=== PATIENT | male | born 1945 | race Caucasian/White ===

== ENCOUNTER 2021-06-18 11:09 | Emergency (ER) | payer MEDICARE, OTHER, SELFPAY ==
--- NOTE | 2021-06-18 | USR_ITS ---
PROCEDURE INFORMATION: Exam: US Duplex Right Lower Extremity Veins, Limited Exam date and time: 06/18/2021 12:00 AM Age: 76 years old Clinical indication: Pain; Leg, upper; Right; Additional info: Rule out dvt, h/o dvts on ac. History of vascular surgery. Explosive Operator spoke with the ER doctor and and arterial exam will be performed subsequently. TECHNIQUE: Imaging protocol: Real-time Duplex ultrasound of the Right Lower Extremity with 2-D mahoney scale, color Doppler flow and spectral waveform analysis with image documentation. Limited exam was focused on the right lower extremity veins. COMPARISON: No relevant prior studies available. FINDINGS: Right deep veins: Unremarkable. The common femoral, femoral, proximal profunda femoral and popliteal veins are patent without thrombus. Normal Doppler waveforms. Normal compressibility and/or augmentation response. Right superficial veins: Unremarkable. Saphenofemoral junction is patent without thrombus. Soft tissues: Unremarkable. Explosive Operator noted diminished flow in the right posterior tibialis artery and dorsalis pedis artery. A subsequent arterial exam is being performed. Please see that report. US/[place] [id number] IMPRESSION: No evidence of deep vein thrombosis.
[2021-06-18 11:26] VITALS: BP 203/85; PULSE 60; RESP 15; O2SAT 95; BMI 22.5
[2021-06-18 11:35] VITALS: BP 196/96; PULSE 55; RESP 24; O2SAT 99
--- NOTE | 2021-06-18 11:41 | XRR_ITS ---
PROCEDURE INFORMATION: Exam: XR Right Knee Exam date and time: 06/18/2021 11:41 AM Age: 76 years old Clinical indication: Pain; Knee; Right; Additional info: Ap and lateral please TECHNIQUE: Imaging protocol: XR Right knee. Views: 1 or 2 views. COMPARISON: [place] [id number] 06/18/2021 1:03 PM FINDINGS: Bones/joints: Normal. Soft tissues: Normal. XR/XR knee RT 1-2V 31893 IMPRESSION: No acute findings.
--- NOTE | 2021-06-18 11:41 | XRR_ITS ---
PROCEDURE INFORMATION: Exam: XR Right Femur Exam date and time: 06/18/2021 11:41 AM Age: 76 years old Clinical indication: Pain; Thigh; Right; Additional info: Rule out FX TECHNIQUE: Imaging protocol: XR Right femur. Views: 2 views. COMPARISON: [place] [id number] 06/18/2021 1:03 PM FINDINGS: Bones/joints: Unremarkable. No acute fracture. Soft tissues: Unremarkable. XR/XR femur RT min 2V* [id number] IMPRESSION: No acute findings.
--- NOTE | 2021-06-18 11:41 | XRR_ITS ---
PROCEDURE INFORMATION: Exam: XR Pelvis Exam date and time: 06/18/2021 11:41 AM Age: 76 years old Clinical indication: Pelvic pain; Additional info: Rule out FX TECHNIQUE: Imaging protocol: XR pelvis. Views: 1 or 2 view. COMPARISON: CR Lumbar Spine Flex/Extens 11577 11/13/2017 4:28 PM FINDINGS: Tubes, catheters and devices: Surgical clips overlie the right femoral head and pelvis. Bones/joints: Unremarkable. No acute fracture. Soft tissues: Unremarkable. Vasculature: There are vascular grafts. XR/XR pelvis 1-2V* 10048 IMPRESSION: No visualized acute fracture.
[2021-06-18 12:00] VITALS: BP 176/85; PULSE 51; RESP 18; O2SAT 95
--- NOTE | 2021-06-18 12:13 | W.ED.GENADLT ---
HPI - General Adult General: Chief complaint: Extremity Problem,Nontraumatic Stated complaint: TROUBLE WALKING/R. HIP PAIN Time Seen by Provider: 06/18/21 11:14 History of Present Illness: HPI narrative: Patient is a 76-year-old male with history of PAD currently on rivaroxaban presenting to the emergency room with complaints of right sided hip pain with radiation to the right inner thigh x1 month. Denies any recent traumas however has noticed worsening pain at that time. Patient went to see his primary care provider was given pain reliever without any significant improvement in symptoms. Patient presents the emergency room for evaluation at this time. Patient denies any fevers/chills, leg swelling, leg erythema, or leg pain currently. Has not had any recent DVT PE in the last few years. Compliant with rivaroxban. Onset: 1 month Duration:1 month Location:home Severity:mild/moderate Review of Systems Narrative: Constitutional: No fever, no chills. HEENT: No vision changes CV: No chest pain, no palpitations PULM: no cough, no dyspnea. GI: No abdominal pain, no N/V/D. : No dysuria MSKEL: +R pelvis pain radiating to the R leg SKIN: No new rashes, no lesions. NEURO: No headache, no focal weakness. HEME: No visible bruises PSYCH: Normal mood Physical Exam Narrative: EXAM NARRATIVE: Head: Atraumatic Eyes: PERRL, conjunctiva without injection ENT: Mucous membrane moist NECK: Supple, ROM intact LUNGS: LCTAB, no crackles/rhonchi CV: RRR ABDOMEN: Soft, nontender in all quadrants EXTREMITY: Normal ROM right hip, ROM of the right knee intact, no visible swelling, prior well-healed scar noted on the inner aspect of the right leg, 1+ DP/PT pulse R foot, cap refill < 3 seconds R foot, 2+dp/pt pulses L SKIN: No rash or erythema NEURO: Awake and alert, no focal motor deficits PSYCH: Normal mood and affect Course Vital Signs: Vital signs: Vital Signs Pulse Rate 51 L 06/18/21 14:44 Respiratory Rate 18 06/18/21 14:44 Blood Pressure 165/71 06/18/21 14:44 Pulse Oximetry 100 06/18/21 14:44 MDM - General Adult MDM Narrative: Medical decision making narrative: Is a 76-year-old male who presents the emergency room for evaluation of right leg pain. Patient has had symptoms for 30 days. On exam, patient has 1+ pulses in the right lower extremity was signs of prior graft for bypass. He is currently on rivaroxaban for peripheral artery disease. Patient has a outpatient vascular surgeon at [facility] in [facility] for plans to follow-up next week for evaluation of PAD. X-ray today did not show any signs of acute fracture. There is no DVTs on ultrasound. I have discussed the findings of the ultrasound with the patient as well as included the report. Patient reassures me that he will follow-up with his his specialist in 1 week for further evaluation. At this present time, I suspect that the peripheral artery disease is likely chronic. I do not suspect acute limb ischemia given ongoing flow. I have given patient strict return precautions for any signs of embolic events. Patient agrees with plan to follow-up with his specialist on next . Rx Tylenol, Norflex, lidocaine patch. Dispositoin: Discharge. Patient is given strict return encouraged for any signs of embolic phenomenon, worsening pain, any new or concerning complaints. Imaging Data^: Other Imaging: Radiologist's impression: [facility] [id number] [facility].[place], [place] [address]Unqeriikwh ReportSigned Patient: Eder Murphy #: [id number]: 1945Acct#:[id number]/Sex: 76 / MADM Date: 06/18/21Loc: [facility]/Bed:Attending Dr: Ordering Provider/Ordering MD: Patricia Pabon MD Date of Service: 06/18/21 Procedure(s): [place] [id number] Accession Number(s): [id number] Report Number: [id number] PROCEDURE INFORMATION: Exam: US Duplex Right Lower Extremity Arteries Or Arterial Bypass Grafts Exam date and time: 06/18/2021 12:42 PM Age: 76 years old Clinical indication: Pain; Leg, upper; Right; Additional info: Evaluate for decreased arterial flow. Patient has a history of 2 bypass grafts. TECHNIQUE: Imaging protocol: Right Real-time duplex scan of the arteries or arterial bypass grafts of the right lower extremity with 2-D mahoney scale, color Doppler flow and spectral waveform analysis. Images documented and saved. COMPARISON: [place] [id number] 06/18/2021 12:14 PM FINDINGS: Right external iliac artery: The peak systolic velocity is 160 cm/s corresponding to between 30 and 49% stenosis. Right common femoral artery: Peak systolic velocity is 32 centimeters/second. Biphasic waveforms. Right superficial femoral artery: No flow visualized. Right popliteal artery: Peak systolic velocities 13.8 cm/s. Biphasic waveforms. Right calf/foot arteries: Peak systolic velocity of the posterior tibialis artery is 11 cm/s. Peak systolic velocity of the dorsalis pedis artery is 7 cm/s. Very diminished flow and monophasic waveforms are seen in these vessels. Soft tissues: No hematoma or collection. Other findings: Technically difficult study. There are internal echoes and no vascularity seen within the bypass grafts. US/[place] [id number] IMPRESSION: 1. There is no vascularity in the visualized bypass grafts. 2. No flow is visualized in the superficial femoral artery. 3. There is severely diminished flow in the visualized right calf/foot arteries as described above with monophasic waveforms. Dictated By:Stephenie Fuller MDSigned By:Stephenie Fuller MDSigned Date/Time:06/18/[address] [place] [id number] ReportSigned Patient: Eder Murphy #: [id number]: 7Acct#:[id number]/Sex: 76 / MADM Date: 06/18/21Loc: [facility]/Bed:Attending Dr: Ordering Provider/Ordering MD: Patricia Pabon MD Date of Service: 06/18/21 Procedure(s): [place] [id number] Accession Number(s): [id number] Report Number: [id number] PROCEDURE INFORMATION: Exam: US Duplex Right Lower Extremity Veins, Limited Exam date and time: 06/18/2021 12:00 AM Age: 76 years old Clinical indication: Pain; Leg, upper; Right; Additional info: Rule out dvt, h/o dvts on ac. History of vascular surgery. Computer System Technician spoke with the ER doctor and and arterial exam will be performed subsequently. TECHNIQUE: Imaging protocol: Real-time Duplex ultrasound of the Right Lower Extremity with 2-D mahoney scale, color Doppler flow and spectral waveform analysis with image documentation. Limited exam was focused on the right lower extremity veins. COMPARISON: No relevant prior studies available. FINDINGS: Right deep veins: Unremarkable. The common femoral, femoral, proximal profunda femoral and popliteal veins are patent without thrombus. Normal Doppler waveforms. Normal compressibility and/or augmentation response. Right superficial veins: Unremarkable. Saphenofemoral junction is patent without thrombus. Soft tissues: Unremarkable. Computer System Technician noted diminished flow in the right posterior tibialis artery and dorsalis pedis artery. A subsequent arterial exam is being performed. Please see that report. US/[place] [id number] IMPRESSION: No evidence of deep vein thrombosis. Discharge Plan Discharge Patient Disposition: Home Clinical Impression: Leg pain, Peripheral arterial disease Condition: Stable Prescriptions: New acetaminophen 500 mg tablet 500 mg PO Q6H PRN (Reason: pain) Qty: 24 RF: 0 lidocaine 5 % adhesive patch,medicated 1 patch topical DAILY PRN (Reason: Pain, Mild) Qty: 20 RF: 0 orphenadrine citrate 100 mg tablet extended release 100 mg PO BID PRN (Reason: Pain, Mild) Qty: 20 RF: 0 Discharge Orders: Discharge ED (Routine); Ordered 06/18/21 Ordered By: Patricia Pabon Referrals: Arias Andrews [Primary Care Provider] - Discharge Diet: Usual diet Discharge Activity: Resume usual activity Patient Instructions: Peripheral Artery Disease (ED), Opioid Safety Activity Restrictions/Additional Instructions: Come back to the emergency room if you notice sudden worsening pain, any numbness, inability to move the leg, or any new concerning complaints. Coding Level of Care Code ED District Manager for Heaven Bishop
--- NOTE | 2021-06-18 12:42 | USR_ITS ---
PROCEDURE INFORMATION: Exam: US Duplex Right Lower Extremity Arteries Or Arterial Bypass Grafts Exam date and time: 06/18/2021 12:42 PM Age: 76 years old Clinical indication: Pain; Leg, upper; Right; Additional info: Evaluate for decreased arterial flow. Patient has a history of 2 bypass grafts. TECHNIQUE: Imaging protocol: Right Real-time duplex scan of the arteries or arterial bypass grafts of the right lower extremity with 2-D mahoney scale, color Doppler flow and spectral waveform analysis. Images documented and saved. COMPARISON: [place] [id number] 06/18/2021 12:14 PM FINDINGS: Right external iliac artery: The peak systolic velocity is 160 cm/s corresponding to between 30 and 49% stenosis. Right common femoral artery: Peak systolic velocity is 32 centimeters/second. Biphasic waveforms. Right superficial femoral artery: No flow visualized. Right popliteal artery: Peak systolic velocities 13.8 cm/s. Biphasic waveforms. Right calf/foot arteries: Peak systolic velocity of the posterior tibialis artery is 11 cm/s. Peak systolic velocity of the dorsalis pedis artery is 7 cm/s. Very diminished flow and monophasic waveforms are seen in these vessels. Soft tissues: No hematoma or collection. Other findings: Technically difficult study. There are internal echoes and no vascularity seen within the bypass grafts. US/[place] [id number] IMPRESSION: 1. There is no vascularity in the visualized bypass grafts. 2. No flow is visualized in the superficial femoral artery. 3. There is severely diminished flow in the visualized right calf/foot arteries as described above with monophasic waveforms.
[2021-06-18 13:40] VITALS: BP 165/71; PULSE 51; RESP 18; O2SAT 100
[2021-06-18 14:44] VITALS: BP 165/71; PULSE 51; RESP 18; O2SAT 100
== END 2021-06-18 14:44 | disposition home or self-care (01) ==
PROVIDERS: Emergency Provider Emergency Medicine; PCP Family Medicine
DX: I73.9 Peripheral vascular disease, unspecified (principal); M79.604 Pain in right leg
CPT/HCPCS: 72170; 73552; 73560; 93926; 93971; 99283

== ENCOUNTER 2022-04-10 18:57 | Emergency (ER) | payer OTHER, MEDICARE, SELFPAY ==
[2022-04-10 19:04] VITALS: BP 179/99; PULSE 55; RESP 16; TEMP 36; O2SAT 99
[2022-04-10 19:40] VITALS: BP 207/85; RESP 16; O2SAT 99
[2022-04-10 20:10] VITALS: BP 188/80; PULSE 53; RESP 15; O2SAT 98
[2022-04-10 20:16] LABS: Basophils # 0.1 10^3/uL (0.0-0.1); Eosinophils # 0.4 10^3/uL (0.0-0.8); Eosinophils % 5.3 %; Hematocrit 43.3 % (42.0-52.0); Hemoglobin 13.8 g/dL (11.7-16.6); Lymphocytes # 2.1 10^3/uL (0.8-4.8); Lymphocytes % 29.1 %; Mean Corpuscular HGB Conc 31.9 g/dL (30.0-36.0); Mean Corpuscular Hemoglobin 28.9 pg (28.0-34.0); Mean Corpuscular Volume 90.8 fl (80-94); Mean Platelet Volume 8.9 fL (7.4-10.4); Monocytes # 0.6 10^3/uL (0.2-0.9); Monocytes % 7.8 %; Neutrophils # 4.03 10^3/uL (1.8-7.7); Neutrophils % 56.4 %; Nucleated Red Blood Cells % 0 %; Platelet Count 395 10^3/cmm (130-400); Red Blood Count 4.77 10^6/uL (4.1-5.3); Red Cell Distribution Width 13.8 % (12.1-15.1); White Blood Count 7.2 10^3/uL (4.0-10.0)
[2022-04-10 20:26] LABS: Add Urine Microscopic? YES; Bilirubin Urine Neg (Negative); Blood Urine 3+ (Negative); Glucose Urine UA Norm (Normal); Ketones Urine Negative (Negative); Leukocyte Esterase Urine 2+ (Negative); Nitrate Urine Negative (Negative); Protein Urine 1+ (Negative); Urine Appearance Turbid (CLEAR); Urine Color Brown (Yellow); Urobilinogen Urine 1 mg/dL (Negative); pH Urine 6 (5-7)
--- NOTE | 2022-04-10 20:33 | ED_ITS ---
HPI - Male Genitourinary General: Chief complaint: Urogenital-Male Stated complaint: unable to urinanate Time Seen by Provider: 04/10/22 19:35 Source: patient Mode of arrival: ambulatory Limitations: no limitations History of Present Illness: 77-year-old male who states he has been having recurrent urinary tract infections over the last 3 months with abdominal pain. He states she was seen at [facility] ER on the 25th had a CT scan that showed no [place] vesicle fistula he states has been on Keflex with minimal improvement. Denies any fevers has had no vomiting or diarrhea denies any worsening improving fa ctors. Associated symptoms: Reports dysuria Review of Systems Const: Denies: fever(s), chills, body aches or change in appetite Eyes: Denies: blurry vision or eye discomfort ENMT: Denies: throat pain or dental pain Card: Denies: chest pain Resp: Denies: dyspnea GI: Reports: abdominal pain : Reports: difficulty urinating and dysuria Musc: Denies: neck pain or back pain Skin/Breast: Denies: rash Neuro: Denies: headache(s) Psych: Denies: depression Juan F/Lymph: Denies: easy bruising All/Imm: Denies: urticaria PFSH ED PFSH: Medical History No pertinent past medical history Social History Substance/Drug Use: never Physical Exam Const: COMMON NORMALS: no acute distress, patient oriented x3 and healthy appearing HENMT: COMMON NORMALS: normocephalic and atraumatic HEAD & SCALP: normocephalic and atraumatic Eye: COMMON NORMALS: Equal, round and reactive pupils present and EOMs intact bilaterally PUPIL: Yes Equal, round and reactive pupils present Neck/C-Spine: COMMON NORMALS: full ROM and supple Chest: COMMONS NORMALS: normal inspection of the chest and normal palpation of entire chest wall Resp: COMMON NORMALS: normal respiratory effort, No retractions, No use of accessory muscles and clear to auscultation bilaterally AUSCULTATION: clear to auscultation bilaterally Cardio: COMMON NORMALS: regular rate, regular rhythm and No murmurs present (Cardio) RATE: regular rate RHYTHM: regular rhythm GI: COMMON NORMALS: Normal to inspection, nondistended, normoactive bowel sounds present, Soft to palpation, non-tender and no masses PALPATION: Yes Soft to palpation Extremity: COMMON NORMALS: normal to inspection and full ROM Neuro: COMMON NORMALS: patient oriented x3, moves all extremities and no focal motor deficits Psych: COMMON NORMALS: mental status grossly normal, Normal thought process present and cooperative THOUGHT PROCESS: Normal thought process present Skin: COMMON NORMALS: no rashes or lesions noted and no wounds GENERAL SKIN EXAM: no rashes or lesions noted Course Vital Signs: Vital signs: Vital Signs Temperature 96.8 F L 04/10/22 19:04 Pulse Rate 54 L 04/10/22 20:40 Respiratory Rate 16 04/10/22 20:40 Blood Pressure 151/80 04/10/22 20:40 Pulse Oximetry 97 04/10/22 20:40 MDM - Male Medical Decision Making Patient presents here with abdominal pain along with some urinary tension he also has a colovesical fistula I did speak to hallway we will follow-up with him this week stable for discharge at this time return if worsening. Lab Data : 04/10/22 20:10 04/10/22 20:10 Laboratory Results WBC 7.2 10^3/uL (4.0-10.0) 04/10/22 20:10 RBC 4.77 10^6/uL (4.1-5.3) 04/10/22 20:10 Hgb 13.8 g/dL (11.7-16.6) 04/10/22 20:10 Hct 43.3 % (42.0-52.0) 04/10/22 20:10 MCV 90.8 fl (80-94) 04/10/22 20:10 MCH 28.9 pg (28.0-34.0) 04/10/22 20:10 MCHC 31.9 g/dL (30.0-36.0) 04/10/22 20:10 RDW 13.8 % (12.1-15.1) 04/10/22 20:10 Plt Count 395 10^3/cmm (130-400) 04/10/22 20:10 MPV 8.9 fL (7.4-10.4) 04/10/22 20:10 Neut % (Auto) 56.4 % 04/10/22 20:10 Lymph % (Auto) 29.1 % 04/10/22 20:10 [place] % (Auto) 7.8 % 04/10/22 20:10 Eos % (Auto) 5.3 % 04/10/22 20:10 Baso % (Auto) 1.0 % 04/10/22 20:10 Neut # (Auto) 4.03 10^3/uL (1.8-7.7) 04/10/22 20:10 Lymph # (Auto) 2.1 10^3/uL (0.8-4.8) 04/10/22 20:10 [place] # (Auto) 0.6 10^3/uL (0.2-0.9) 04/10/22 20:10 Eos # (Auto) 0.4 10^3/uL (0.0-0.8) 04/10/22 20:10 Baso # (Auto) 0.1 10^3/uL (0.0-0.1) 04/10/22 20:10 Nucleated RBC % (auto) 0 % 04/10/22 20:10 Nucleated RBCs # 0.0 /100WBC 04/10/22 20:10 Sodium 139 mmol/L (136-145) 04/10/22 20:10 Potassium 3.9 mmol/L (3.5-5.1) 04/10/22 20:10 Chloride 103 mmol/L (98-107) 04/10/22 20:10 Carbon Dioxide 26 mmol/L (22-29) 04/10/22 20:10 Anion Gap 13.9 (5-19) 04/10/22 20:10 BUN 26 mg/dL (8-23) H 04/10/22 20:10 Creatinine 1.5 mg/dL (0.7-1.2) H 04/10/22 20:10 GFR Calculation Not Reportable 04/10/22 20:10 Glucose 89 mg/dL (65-115) 04/10/22 20:10 Calculated Osmolality 292 mOsm/kg (285-295) 04/10/22 20:10 Calcium 9.4 mg/dL (8.5-10.5) 04/10/22 20:10 Total Bilirubin 0.2 mg/dL (0.15-1.2) 04/10/22 20:10 AST 11 U/L (0-40) 04/10/22 20:10 ALT 10 U/L (0-41) 04/10/22 20:10 Alkaline Phosphatase 170 IU/L (40-130) H 04/10/22 20:10 Total Protein 7.5 g/dL (6.6-8.7) 04/10/22 20:10 Albumin 4.3 g/dL (3.5-5.2) 04/10/22 20:10 Globulin 3.2 g/dL (1.3-4.6) 04/10/22 20:10 Urine Color Brown (Yellow) 04/10/22 20:10 Urine Appearance Turbid (CLEAR) 04/10/22 20:10 Urine pH 6 (5-7) 04/10/22 20:10 Ur Specific [place] 1.020 (1.005-1.030) 04/10/22 20:10 Urine Protein 1+ (Negative) H 04/10/22 20:10 Urine Glucose (UA) Norm (Normal) 04/10/22 20:10 Urine Ketones Negative (Negative) 04/10/22 20:10 Urine Blood 3+ (Negative) H 04/10/22 20:10 Urine Nitrate Negative (Negative) 04/10/22 20:10 Urine Bilirubin Neg (Negative) 04/10/22 20:10 Urine Urobilinogen 1 mg/dL (Negative) H 04/10/22 20:10 Ur Leukocyte Esterase 2+ (Negative) H 04/10/22 20:10 Urine RBC 15-25 /hpf (0-2) H 04/10/22 20:10 Urine WBC 15-25 /hpf (0-5) H 04/10/22 20:10 Ur Squamous Epith Cells 0-4 /hpf (0-5) H 04/10/22 20:10 Amorphous Sediment Not Reportable 04/10/22 20:10 Urine Bacteria 3+ /hpf (NONE) H 04/10/22 20:10 Urine Mucus 1+ /hpf 04/10/22 20:10 Discharge Plan Discharge Patient Disposition: Home Clinical Impression: Abdominal pain, Colovesical fistula Prescriptions: New hydrocodone-acetaminophen 5-325 mg tablet 1 tab PO Q6H PRN (Reason: pain) Qty: 14 0RF ondansetron 4 mg tablet,disintegrating 4 mg PO Q6H PRN (Reason: nausea and vomiting) Qty: 14 0RF No Action acetaminophen 500 mg tablet 500 mg PO Q6H PRN (Reason: pain) Qty: 24 0RF lidocaine 5 % adhesive patch,medicated 1 patch topical DAILY PRN (Reason: Pain, Mild) Qty: 20 0RF Rx Instructions: leave on most painful area for up to 12 hrs orphenadrine citrate 100 mg tablet extended release 100 mg PO BID PRN (Reason: Pain, Mild) Qty: 20 0RF Discharge Orders: Discharge ED (Routine); Ordered 04/10/22 Ordered By: Clayton Carpenter Referrals: Arias Andrews [Referring] - Braulio Redd MD [Physician] - 1-3 days Discharge Diet: Advance as tolerated Discharge Activity: Resume usual activity Patient Instructions: Abdominal Pain (ED), Opioid Safety Coding Level of Care Code ED It Help Desk Associate for [employer] Fwd Exam Comprehensive
[2022-04-10 20:36] LABS: Bacteria Urine 3+ /hpf; RBC Urine 15-25 /hpf (0-2); Squamous Epithelial Cell Urine 0-4 /hpf (0-5); WBC Urine 15-25 /hpf (0-5)
[2022-04-10 20:37] LABS: Add Urine Culture? Yes; Mucus Urine 1+ /hpf
[2022-04-10 20:40] VITALS: BP 151/80; PULSE 54; RESP 16; O2SAT 97
[2022-04-10 20:40] LABS: Alanine Aminotransferase 10 U/L (0-41); Albumin Level 4.3 g/dL (3.5-5.2); Alkaline Phosphatase 170 IU/L (40-130); Anion Gap 13.9 (5-19); Aspartate Amino Transferase 11 U/L (0-40); Blood Urea Nitrogen 26 mg/dL (8-23); Calcium 9.4 mg/dL (8.5-10.5); Carbon Dioxide 26 mmol/L (22-29); Chloride 103 mmol/L (98-107); Globulin 3.2 g/dL (1.3-4.6); Glucose 89 mg/dL (65-115); Osmolality Calculated 292 mOsm/kg (285-295); Potassium 3.9 mmol/L (3.5-5.1); Sodium 139 mmol/L (136-145); Total Bilirubin 0.2 mg/dL (0.15-1.2); Total Protein 7.5 g/dL (6.6-8.7)
[2022-04-10] MEDS: HYDROcodone-acetaminophen 5-325 mg Tablet 2 TAB PO (21:40)
--- NOTE | 2022-04-11 15:48 | DCPLANNER ---
Addendum entered by Sofy Grimm 04/20/22 07:32: Patient had a follow up appointment scheduled for 04.11.[address] Redd - patient did attend appointment. Addendum entered by Sofy Grimm 04/11/22 15:52: electrician manager [facility] for the [facility] process could be started. Original Note: electrician manager had message to schedule a follow up appointment for patient with urology. electrician manager sent patients information to the front office staff at urology. Patients information will be printed and reviewed. Clinic will call patient with appointment information.
== END 2022-04-10 22:04 | disposition home or self-care (01) ==
PROVIDERS: Emergency Provider Emergency Medicine
DX: N32.1 Vesicointestinal fistula (principal); R10.9 Unspecified abdominal pain
CPT/HCPCS: 51702; 80053; 81001; 85025; 87086; 99283

== ENCOUNTER → 2022-04-11 13:28 | Outpatient (BNVA) | payer OTHER, SELFPAY | PROVIDERS: Visit Provider Urology | DX: N32.1 Vesicointestinal fistula (principal); R10.9 Unspecified abdominal pain; R97.20 Elevated prostate specific antigen [PSA]; Z87.440 Personal history of urinary (tract) infections; Z87.19 Personal history of other diseases of the digestive system | CPT/HCPCS: 52000; 99204 ==

== ENCOUNTER → 2022-04-17 12:22 | Outpatient (BNVA) | payer MEDICARE, OTHER, SELFPAY | PROVIDERS: Visit Provider Surgery | DX: N32.1 Vesicointestinal fistula (principal) | CPT/HCPCS: 99204 ==

== ENCOUNTER 2022-04-20 17:00 | Inpatient (IN) | payer OTHER, MEDICARE, SELFPAY ==
[2022-04-19 13:11] VITALS: BMI 24.1
[2022-04-20] VITALS (16 sets, daily range): BP systolic 94–165; BP diastolic 59–107; PULSE 59–70; RESP 12–18; TEMP 35.9–36.4; O2SAT 93–100; BMI 24.1
--- NOTE | 2022-04-20 07:20 | ECG_ITS ---
[facility] Test Date: 2022-04-20 Pat Name: Eder Murphy Department: Room: Gender: Male Technical Architect: : [id number] Requested By: Deni Hinds Order Number: [id number] Melida MD: Francesco Chambers M.D. Measurements Intervals [place] Rate: 57 P: 6 CT: 169 QRS: -30 QRSD: 98 T: 51 QT: 438 QTc: 427 Interpretive Statements SINUS BRADYCARDIA POSSIBLE ANTERIOR MYOCARDIAL INFARCTION , OF INDETERMINATE AGE [30 ms Q WAVE IN V3/V4, OR R < 0.2 mV IN V4] Compared to ECG 02/14/2018 22:37:20 Myocardial infarct finding now present Sinus rhythm no longer present Electronically Signed On 04-20-2022 17:00:30 CDT by Francesco Chambers M.D. [email or web address]
--- NOTE | 2022-04-20 08:16 | P.ANESASSM_ITS ---
Pre-Anesthetic Assessment Height/Weight: Height 1.65 m Weight 65.771 kg Preop Diagnosis: colovesical fistula Operation Date: 04/20/22 09:00 Proposed Procedures p colovesical fistula repair 28050,N32.1(Not Applicable) - Braulio Redd MD s lap poss open sigmoid colectomy 26032,99135(Not Applicable) - Jose Ness MD Familial anesthetic complications: None Was Beta [place] taken within 24 hours: N/A Was Clonidine taken within 24 hours: N/A Last intake: > 8hrs Social No alcohol and No tobacco Exam alert, oriented x 3, clear to auscultation bilaterally and regular rate & rhythm Airway Mallampati: Class III Dentition: partials Pulmonary Chronic Obstructive Pulmonary Disease CV/HEM Hypertension and Peripheral Vascular Disease (On plavix) Hepatic None reported GI None reported Metabolic None reported Musc/skel None reported Neuropsych Cerebrovascular Accident (1 year ago, no residual deficits) Anesthetic Plan ASA status: 3 Anesthesia: General Risk of > 500 ml blood loss (7ml/kg in children): Yes, adequate IV access and fluids planned Medications/Allergies Home Medications Medication Instructions Recorded Confirmed Last Taken Type acetaminophen 500 mg tablet 500 mg PO Q6H PRN #24 tab 06/18/21 04/19/22 Unknown Rx lidocaine 5 % topical patch 1 patch TOPICAL DAILY PRN #20 ea 06/18/21 04/19/22 Unknown Rx orphenadrine citrate 100 mg 100 mg PO BID PRN #20 tab 06/18/21 04/20/22 04/18/22 Rx tablet,extended release hydrocodone 5 mg-acetaminophen 325 1 tab PO Q6H PRN #14 tab 04/10/22 04/20/22 04/19/22 Rx mg tablet ondansetron 4 mg disintegrating 4 mg PO Q6H PRN #14 tab 04/10/22 04/20/22 04/19/22 Rx tablet alendronate 70 mg tablet 70 mg PO .weekly tab 04/11/22 04/20/22 Unknown History aspirin 81 mg tablet,delayed 81 mg PO DAILY 04/11/22 04/20/22 04/17/22 History release cetirizine 10 mg tablet (All Day 10 mg PO DAILY PRN 04/11/22 04/20/22 04/19/22 History Allergy (cetirizine)) clopidogrel 75 mg tablet 75 mg PO DAILY 04/11/22 04/19/22 04/12/22 History cyanocobalamin (vitamin B-12) 1,000 mcg PO DAILY 04/11/22 04/20/22 04/19/22 History 1,000 mcg capsule ferrous sulfate 325 mg (65 mg 325 mg PO DAILY 04/11/22 04/20/22 04/19/22 History iron) tablet (FeroSul) hydrochlorothiazide 12.5 mg tablet 12.5 mg PO DAILY 04/11/22 04/20/22 04/19/22 History lamotrigine 100 mg disintegrating 100 mg PO DAILY 04/11/22 04/20/22 04/19/22 History tablet (Lamictal ODT) metoprolol tartrate 100 mg tablet 100 mg PO BID 04/11/22 04/20/22 04/19/22 History nortriptyline 10 mg capsule 20 mg PO DAILY cap 04/11/22 04/20/22 04/18/22 History sucralfate 1 gram tablet 1 g PO QID tab 04/11/22 04/20/22 04/19/22 History tamsulosin 0.4 mg capsule 0.4 mg PO DAILY 04/11/22 04/20/22 04/18/22 History topiramate 50 mg tablet 50 mg PO DAILY tab 04/11/22 04/20/22 04/19/22 History vitamins A,C,S-fkdf-mvelea 14,320 1 cap PO BID 04/11/22 04/19/22 Unknown History unit-226 mg-200 unit capsule (ICaps AREDS) erythromycin 500 mg tablet 500 mg PO ONCE #3 tab 04/17/22 04/20/22 04/19/22 Rx neomycin 500 mg tablet 1 g PO ONCE #6 tab 04/17/22 04/20/22 04/19/22 Rx Allergies Allergy/AdvReac Type Severity Reaction Status Date / Time oxycodone Allergy ADR-Halluci Verified 04/19/22 13:06 nating pregabalin Allergy ALGY-Hives Verified 04/19/22 13:05 Ffkabva-QUS-EbJ Reductase Allergy ADR-Cramping Verified 04/19/22 13:05 Inhibitor of the Muscles [facility] Anesthesia Medical History H/O traumatic brain injury History of diverticulitis Surgical History H/O hemorrhoidectomy X3 H/O shoulder surgery right H/O sinus surgery H/O vascular surgery 5 on right leg and 2 on left History of ankle surgery right -due to fracture History of cataract surgery bilateral History of colonoscopy with polypectomy 2019 History of esophagogastroduodenoscopy (EGD) 2019 S/P insertion of spinal cord stimulator Family History Mother , at age 83 No problems noted. Father , at age 78 Alzheimer's dementia Social History Smoking and tobacco status: never smoked Alcohol intake: never Marital status: Current occupational status: disabled History of recent travel: No Data Anesthesia Cardiac Studies: No Data to Display
[2022-04-20] MEDS: sodium chloride 0.9% 1,000 ML 999 ML IV (09:25)
[2022-04-20 09:34] LABS: Basophils # 0.1 10^3/uL (0.0-0.1); Basophils % 0.6 %; Eosinophils % 0.5 %; Hematocrit 40.3 % (42.0-52.0); Hemoglobin 13.3 g/dL (11.7-16.6); Lymphocytes % 25.3 %; Mean Corpuscular Hemoglobin 28.7 pg (28.0-34.0); Mean Corpuscular Volume 86.9 fl (80-94); Mean Platelet Volume 9.5 fL (7.4-10.4); Monocytes # 0.6 10^3/uL (0.2-0.9); Neutrophils # 5.21 10^3/uL (1.8-7.7); Neutrophils % 65.3 %; Nucleated Red Blood Cells % 0 %; Platelet Count 367 10^3/cmm (130-400); Red Blood Count 4.64 10^6/uL (4.1-5.3); Red Cell Distribution Width 13.6 % (12.1-15.1)
--- NOTE | 2022-04-20 09:47 | W.PM.OPSFHP ---
Same Day Surgery H&P Indication for Procedure/HPI DATE OF PROCEDURE: April 20, 2022 CHIEF COMPLAINT/INDICATIONFOR SURGICAL PROCEDURE: colon resection PREOP DIAGNOSIS: colovesical fistula PLANNED PROCEDURE: Operation Date: 04/20/22 09:00 Proposed Procedures p colovesical fistula repair 87748,N32.1(Not Applicable) - Braulio Redd MD s lap poss open sigmoid colectomy [id number](Not Applicable) - Jose Ness MD Medications/Allergies* Home Medications Medication Instructions Recorded Confirmed Type alendronate 70 mg tablet 70 mg PO .weekly tab 04/11/22 04/20/22 History aspirin 81 mg tablet,delayed 81 mg PO DAILY 04/11/22 04/20/22 History release cetirizine 10 mg tablet (All Day 10 mg PO DAILY PRN 04/11/22 04/20/22 History Allergy (cetirizine)) clopidogrel 75 mg tablet 75 mg PO DAILY 04/11/22 04/19/22 History cyanocobalamin (vitamin B-12) 1,000 mcg PO DAILY 04/11/22 04/20/22 History 1,000 mcg capsule ferrous sulfate 325 mg (65 mg 325 mg PO DAILY 04/11/22 04/20/22 History iron) tablet (FeroSul) hydrochlorothiazide 12.5 mg tablet 12.5 mg PO DAILY 04/11/22 04/20/22 History lamotrigine 100 mg disintegrating 100 mg PO DAILY 04/11/22 04/20/22 History tablet (Lamictal ODT) metoprolol tartrate 100 mg tablet 100 mg PO BID 04/11/22 04/20/22 History nortriptyline 10 mg capsule 20 mg PO DAILY cap 04/11/22 04/20/22 History sucralfate 1 gram tablet 1 g PO QID tab 04/11/22 04/20/22 History tamsulosin 0.4 mg capsule 0.4 mg PO DAILY 04/11/22 04/20/22 History topiramate 50 mg tablet 50 mg PO DAILY tab 04/11/22 04/20/22 History vitamins A,C,E-olba-ejvzqw 14,320 1 cap PO BID 04/11/22 04/19/22 History unit-226 mg-200 unit capsule (ICaps AREDS) Allergies/Adverse Reactions Allergy/AdvReac Type Severity Reaction Status Date / Time oxycodone Allergy ADR-Halluci Verified 04/19/22 13:06 nating pregabalin Allergy ALGY-Hives Verified 04/19/22 13:05 Neefzmq-BAQ-YwV Reductase Allergy ADR-Cramping Verified 04/19/22 13:05 Inhibitor of the Muscles Current Medications: Generic Name Dose Route Start Last Admin Trade Name Freq PRN Reason Stop Dose Admin Sodium Chloride 1,000 mls @ 999 mls/hr 04/20/22 09:36 04/20/22 09:25 Sodium Chloride 0.9% IV 04/20/22 10:36 999 mls/hr .Q1H1M ONE Administration Pertinent History/Comorbid Conditions* Medical History (Updated 04/18/22 @ 00:01 by ) H/O traumatic brain injury History of diverticulitis Surgical History (Updated 04/17/22 @ 12:41 by Jose Ness MD) H/O hemorrhoidectomy X3 H/O shoulder surgery right H/O sinus surgery H/O vascular surgery 5 on right leg and 2 on left History of ankle surgery right -due to fracture History of cataract surgery bilateral History of colonoscopy with polypectomy 2019 History of esophagogastroduodenoscopy (EGD) 2019 S/P insertion of spinal cord stimulator Family History (Updated 04/11/22 @ 13:57 by Roslyn Cowart LPN) Father, at age 78 Mother, at age 83 Alzheimer's dementia Father Social History Smoking and tobacco status: never smoked Alcohol intake: never Marital status: Current occupational status: disabled History of recent travel: No Pertinent Exam Findings alert, oriented x 3 and regular rate & rhythm Recommendations Surgery/Procedure today Coding Level of Care Code Acute Char Filter Operator Helper for Heaven Bishop
[2022-04-20 09:56] LABS: Blood Urea Nitrogen 31 mg/dL (8-23); Carbon Dioxide 26 mmol/L (22-29); Chloride 100 mmol/L (98-107); Glucose 92 mg/dL (65-115); Osmolality Calculated 290 mOsm/kg (285-295); Sodium 137 mmol/L (136-145)
[2022-04-20 10:07] LABS: Anion Gap 15.1 (5-19); Potassium 4.1 mmol/L (3.5-5.1)
--- NOTE | 2022-04-20 10:18 | P.HPUD_ITS ---
Surgery/Procedure H&P Update DATE OF PROCEDURE: April 20, 2022 DATE H&P PERFORMED: 04/11/22 H&P UPDATE INFORMATION: I have reviewed H&P completed within last 30 days, I have examined patient prior to procedure, No changes to prior documentation and H&P is in [facility] EMR on date indicated PREOP DIAGNOSIS: colovesical fistula PLANNED PROCEDURE: Operation Date: 04/20/22 09:00 Proposed Procedures p colovesical fistula repair 23335,N32.1(Not Applicable) - Braulio Redd MD s lap poss open sigmoid colectomy [id number](Not Applicable) - Jose Ness MD
--- NOTE | 2022-04-20 10:18 | W.PM.OPSUD ---
Surgery/Procedure H&P Update DATE OF PROCEDURE: April 20, 2022 DATE H&P PERFORMED: 04/11/22 H&P UPDATE INFORMATION: I have reviewed H&P completed within last 30 days, I have examined patient prior to procedure, No changes to prior documentation and H&P is in [facility] EMR on date indicated PREOP DIAGNOSIS: colovesical fistula PLANNED PROCEDURE: Operation Date: 04/20/22 09:00 Proposed Procedures p colovesical fistula repair 03111,N32.1(Not Applicable) - Braulio Redd MD s lap poss open sigmoid colectomy [id number],45262(Not Applicable) - Jose Ness MD
--- NOTE | 2022-04-20 11:40 | P.ANES_ITS ---
Anesthesia Procedures Procedure/Date: 04/20/22 Central Venous Insert: Time Out Performed: Yes Consent: from patient and patient agrees to proceed Central Line: New Vein cannulated: right internal jugular Ultrasound used: to identify patency to vessel and to visualize needle entry to vein Post procedure: Obtain Chest X-Ray Addit ional Comments: 16 cm, 7 fr
--- NOTE | 2022-04-20 11:44 | SUR.PREOP ---
Patient was a very difficult IV stick for surgery prep. Pre op nurse stuck 3X, Dr laughlin with US 5X and successfully placed an 18g in right bicep. Patient received 800ml NS bolus then IV infiltrated. Anesthesia tried 2X with US. Resorted to Central line to right side of neck placed by Dr. Leo. Patient tolerated all sticks very well and was in good spirits.
[2022-04-20] MEDS: piperacillin-tazobactam 3.375 GM in sodium chloride 0.9% (plus) 50 ML IV ×2 (12:20→18:20)
--- NOTE | 2022-04-20 13:18 | SUR.OPER ---
called and notified of surgical progress and pt status.
--- NOTE | 2022-04-20 13:25 | P.ANES_ITS ---
Anesthesia Procedures Procedure/Date: 04/20/22 Arterial Line: Time Out Performed: Yes Consent: requested by attending/covering physician, risks and benefits reviewed and patient agrees to proceed Size (Gauge): 20 Technique Used: guide wire technique Post- Procedure: dry sterile dressing placed Patient Tolerated Procedure: well C omplications: none Site: left and radial
--- NOTE | 2022-04-20 13:25 | ANES.PROC ---
Anesthesia Procedures Procedure/Date: 04/20/22 Arterial Line: Time Out Performed: Yes Consent: requested by attending/covering physician, risks and benefits reviewed and patient agrees to proceed Size (Gauge): 20 Technique Used: guide wire technique Post-Procedure: dry sterile dressing placed Patient Tolerated Procedure: well Complications: none Site: left and radial
--- NOTE | 2022-04-20 15:00 | PM.OP ---
Operative Report Date of procedure: April 20, 2022 Pre-op diagnosis: Colovesical fistula Post-op diagnosis: Colovesical fistula Procedure done: Partial cystectomy with bladder closure Specimens removed/disposition: Bladder dome Pathology: Bladder dome Surgeon: Ivania Java Groovy Developer: Grover Estimated blood loss (mL): 100 Urine output: Not measured Complications: None Findings: Intensely inflamed dome of bladder widely surrounding the fistula tract Dome of bladder excised for a diameter of approximately 5 to 6 cm. Healthy tissue approximated in 2 layers for closure Brief History: Eder is a very pleasant 77-year-old white male recently diagnosed with a enterovesical fistula and evidence of diverticulitis and abscess. Admitted for sigmoid resection, partial cystectomy versus simple cystorrhaphy. Procedure: After routine preoperative evaluation examination and obtaining of informed consent he was taken to the operating suite on 04/20/2022 where general anesthesia was administered without difficulty after appropriate timeout was performed, SCDs confirmed to be functioning, preoperative antibiotics administered, beta-demetrice protocol confirmed. Prepped and draped in usual sterile fashion for Dr. Ness's case in dorsolithotomy position. Please see his dictation for his portion of the procedure After the bowel had been from the inflamed bladder laparoscopically the patient was opened with a midline suprapubic incision down to the pubic bone. Wound protector was placed. The bladder was readily identified after being filled with about 200 cc sterile water. There was healthy tissue anteriorly and distally to the fibrotic dome. The bladder was entered to the healthy position in the midline. An Allis clamp was placed on the distal aspect of the incision to prevent tearing further distally. Once the bladder was open enough into the inflamed dome tissue the fistula site was readily identified. There was a intense amount of inflammation and induration surrounding this for least 2.5 to 3 cm in radius. This area was then excised with electrocautery back to healthy tissue. Hemostasis was obtained. The balloon was identified to be inflated. The orifices were well away from the area of resection. The bladder was then closed in 2 layers utilizing 3-0 Vicryl for muscularis mucosal running closure beginning at the most distal aspect of the incision carried all the way to the dome closure. A second layer of closure was then performed with 2-0 Vicryl for adventitial muscularis layer imbricating over the initial layer. Irrigation was conducted prior to the final closure of the first layer to clear any clots from the bladder. Wound was irrigated. No active bleeding. He was turned back over to Dr. Ness for completion of his portion of the procedure. Tolerated this portion well without complications. Plans: 1. Maintain Valdez catheter for 2 weeks with cystogram prior to removal. 2. We will follow as inpatient.
--- NOTE | 2022-04-20 16:53 | P.OP_ITS ---
Operative Report Date of procedure: April 20, 2022 Pre-op diagnosis: Colovesical fistula secondary to diverticulosis Post-op diagnosis: Colovesical fistula secondary to diverticulosis with associated phlegmon Diverticulosis sigmoid colon noted on colonoscopy Procedure done: 1. Colonoscopy past splenic flexure without biopsy 2. Laparoscopic sigmoid colectomy with stapled 29 mm EEA anastomosis 3. Flexible sigmoidoscopy 4. Partial cystectomy with bladder closure, refer to Dr. Redd's notes for further details Specimens removed/disposition: 1. Sigmoid colon, stapled and distal 2. Proximal and distal donuts from EEA anastomosis 3. Phlegmon 4. Bladder wall Surgeon: Jose Ness Anesthesia: General Estimated blood loss (mL): 150 IV fluids (mL): 1,600 Urine output (mL): 100 Condition: stable Disposition: PACU Procedure: The patient was taken to the operating room and intubated under general anesthesia after IV antibiotic had been administered. The patient was placed in the modified lithotomy position. A colonoscope was introduced and advanced up to the cecum, the colon prep was fair and the colonoscope was slowly withdrawn. Cecum: Normal Ascending colon: Normal Transverse colon: Normal Descending colon: Normal Sigmoid colon: Severe diverticulosis Rectum: Normal LO: Normal The Valdez catheter was placed. The rectum was irrigated with diluted Betadine using red rubber catheter. The abdomen and the perineum was prepped and draped in a sterile manner. Using a 15 blade, a midline supraumbilical incision was made and using open Perea technique the peritoneal cavity was entered, 12 mm port was placed and 15 mm of pneumoperitoneum was created. A 10 mm 30? scope was then introduced. 12 mm port was placed in the right lower quadrant and 5 mm port was placed in the right upper quadrant under direct visualization in the midclavicular line. Examination of the colon revealed thickened sigmoid colon adherent to the phlegmon and the dome of the urinary bladder. The patient was placed in steep Trendelenburg position and rotated to the right in order to place a small bowel loops in the right upper quadrant. The transverse colon was retracted superiorly. The sigmoid colon was chronically inflamed and adherent to the dome of the bladder. Using suction charging car operator and LigaSure the dense addition between the bladder and the colon at the site of the colovesical fistula was taken down. The dissection was carried anteriorly using LigaSure until the anterior bladder wall could be mobilized in the space of Retzius. The sigmoid mesocolon was divided near to the colon since the surgery was for benign pathology. The mesocolon was divided from the junction of the descending and sigmoid colon down to the upper one third of the rectum after the peritoneal reflection had been opened up. The line of Toldt was opened along the descending colon up to the splenic flexure and the avascular plane was entered to mobilize the descending colon medially. 3 loads of 45 mm blue load Endo CHASITY stapler was introduced through the right lower quadrant port to divide the rectum distally. 20 cc of saline mixed with 20 cc of Exparel mixed with .25% Marcaine was infiltrated bilaterally for laparoscopic TAP block. The suprapubic incision was extended and the wound protector was placed. At this point Dr. Redd joined to perform partial cystectomy and repair. Please refer to his notes for further details. The divided sigmoid colon was exteriorized. There was some bleeding in the space of Retzius and 4 x 8 centimeters Surgicel was placed. A noncrushing bowel clamps were placed in the descending colon where the colon wall did not appear inflamed and an Autosuture pursestring was placed and the colon was divided and the specimen removed from the operating field. Serial anal dilators were used and it was decided to proceed with the 29 mm EEA stapl er. The anvil of the EEA stapler was introduced into the descending colon and tied down. The proximal descending colon was then reintroduced into the peritoneal cavity and pneumoperitoneum recreated. The anus was digitally dilated and the EEA stapler was introduced through the anal canal and the trocar passed through the previously created staple line and attached to the anvil after ensuring that there was no twisting of the mesentery. The EEA stapler was fired to create the stapled 29 mm end-to-end anastomosis and 2 intact doughnuts were retrieved which were sent as proximal margin and distal margin. A colonoscope was introduced and passed beyond the anastomosis after submerging the anastomosis under saline in the pelvis. The air leak test was negative. There was no significant bleeding noted from the staple line. The colonoscope was withdrawn. All ports were removed under direct visualization and the fascia the midline was closed using #1 loop PDS. The fascia of the right lower quadrant port was closed using [id number] 0 Vicryl suture. The subcutaneous tissue was approximated using 3-0 Vicryl suture and skin was closed using running subcuticular 4-0 Monocryl suture and Dermabond. . The patient was subsequently extubated and transferred to recovery room with a Valdez catheter in place.
--- NOTE | 2022-04-20 17:55 | ANE.PACU2 ---
Inpatient post-anesthesia follow up: Airway intact: Yes Vital signs: Temperature 97 F Pulse Rate 63 Respiratory Rate 16 Blood Pressure 165/75 Pulse Oximetry 100 Oxygen Delivery Me thod [ Room Air Current Rate & Del melani] Oxygen Delivery Me thod Simple Mask Oxygen Flow Rate 3 Fraction of Inspir ed Oxygen Hydration adequate: Yes Nausea and vomiting: No Pain level: 4 Mental status: Baseline
[2022-04-20] MEDS: famotidine 20 mg/2 mL INJ IVP (18:19)
[2022-04-20] MEDS: HYDROcodone-acetaminophen 5-325 mg Tablet 1 TAB PO (18:20)
[2022-04-20] MEDS: metoprolol tartrate 50 mg Tablet 100 MG PO (18:20)
[2022-04-20] MEDS: sennosides-docusate Tablet 1 TAB PO (18:20)
[2022-04-20] MEDS: sucralfate 1 gm Tablet PO ×2 (18:20→20:40)
[2022-04-20] MEDS: D5-NS 0.45% + KCL 20 mEq 20 MEQ/1,000 ML BAG 100 MEQ IV (18:21)
--- NOTE | 2022-04-20 20:00 | PC.NURSE ---
Dr. Ness notified of patient being cold to touch and nurse unable to get oral, axillary, or temporal temperature and unable to get pulse ox. Rectal temp 97.2. Ordered bear hugger and ordered to not do rectal temperatures on patient.
[2022-04-21] VITALS (8 sets, daily range): BP systolic 136–166; BP diastolic 67–89; PULSE 57–86; RESP 14–18; TEMP 36.1–36.7; O2SAT 95–100
--- NOTE | 2022-04-21 01:33 | PC.NURSE ---
Patient hit call light. Nurse walked in room and patient stated why haven't they done my surgery yet? Patient educated that he did have surgery. Patient then asks why am I not in a hospital bed yet, then? Patient educated that he is in a hospital room. Patient looks around the room and states oh. Patient is asking if his knows he is here. Patient is able to tell me that it is 2021. Patient reoriented and bed alarm set.
[2022-04-21] MEDS: D5-NS 0.45% + KCL 20 mEq 20 MEQ/1,000 ML BAG 100 MEQ IV (01:42)
[2022-04-21] MEDS: piperacillin-tazobactam 3.375 GM in sodium chloride 0.9% (plus) 50 ML IV ×3 (01:42→17:17)
[2022-04-21] MEDS: famotidine 20 mg/2 mL INJ IVP ×2 (04:13→17:18)
[2022-04-21 05:39] LABS: Basophils % 0.2 %; Hematocrit 24.1 % (42.0-52.0); Hemoglobin 8.3 g/dL (11.7-16.6); Lymphocytes # 1.1 10^3/uL (0.8-4.8); Lymphocytes % 8.9 %; Mean Corpuscular HGB Conc 34.4 g/dL (30.0-36.0); Mean Corpuscular Hemoglobin 29.1 pg (28.0-34.0); Mean Corpuscular Volume 84.6 fl (80-94); Monocytes # 0.8 10^3/uL (0.2-0.9); Monocytes % 6.5 %; Neutrophils # 9.97 10^3/uL (1.8-7.7); Neutrophils % 84.1 %; Nucleated Red Blood Cells % 0 %; Platelet Count 315 10^3/cmm (130-400); Red Blood Count 2.85 10^6/uL (4.1-5.3); Red Cell Distribution Width 13.5 % (12.1-15.1); White Blood Count 11.9 10^3/uL (4.0-10.0)
[2022-04-21 05:58] LABS: Anion Gap 16.4 (5-19); Blood Urea Nitrogen 32 mg/dL (8-23); Calcium 7.7 mg/dL (8.5-10.5); Carbon Dioxide 18 mmol/L (22-29); Chloride 104 mmol/L (98-107); Glucose 163 mg/dL (65-115); Osmolality Calculated 288 mOsm/kg (285-295); Potassium 4.4 mmol/L (3.5-5.1); Sodium 134 mmol/L (136-145)
--- NOTE | 2022-04-21 06:10 | PC.NURSE ---
Dr. Ness notified of some increased distention in lower abdomen, however it is soft. Patient does not c/o of any pain. Patient only had 270 ml urine output. Patient had large drop in hemoglobin form 13 to 8. Ordered to give 500 ml bolus NS. Ordered to keep lovell in x2 weeks.
[2022-04-21] MEDS: sodium chloride 0.9% 500 ML 999 ML IV (06:36)
[2022-04-21] MEDS: HYDROcodone-acetaminophen 5-325 mg Tablet 1 TAB PO ×3 (06:52→19:16)
[2022-04-21 07:01] LABS: Basophils % 0.1 %; Hematocrit 24.5 % (42.0-52.0); Lymphocytes # 1.1 10^3/uL (0.8-4.8); Lymphocytes % 10.1 %; Mean Corpuscular HGB Conc 32.7 g/dL (30.0-36.0); Mean Corpuscular Hemoglobin 28.3 pg (28.0-34.0); Mean Corpuscular Volume 86.6 fl (80-94); Mean Platelet Volume 9.4 fL (7.4-10.4); Monocytes # 0.8 10^3/uL (0.2-0.9); Neutrophils # 8.85 10^3/uL (1.8-7.7); Neutrophils % 82.4 %; Nucleated Red Blood Cells % 0 %; Platelet Count 287 10^3/cmm (130-400); Red Blood Count 2.83 10^6/uL (4.1-5.3); Red Cell Distribution Width 13.7 % (12.1-15.1); White Blood Count 10.7 10^3/uL (4.0-10.0)
--- NOTE | 2022-04-21 08:11 | P.PN_ITS ---
Subjective Subjective: Patient denies significant abdominal pain, nausea, vomiting, flatus or BM. Urine output was 300 cc overnight, 500 cc bolus given. No hematuria Medications: Reviewed: Yes Vitals/I&O/Wt Last Vital Signs Temp 97.2 F L 04/22/22 05:05 Pulse 56 L 04/22/22 05:05 Resp 24 H 04/22/22 04:28 BP 151/68 04/22/22 05:05 Pulse Ox 94 04/22/22 04:28 04/21/22 04/22/22 04/22/22 22:59 06:59 14:59 Intake Total 1198.333 / 4426.667 1656.667 / 4426.667 Output Total 200 / 1300 1100 / 1300 Balance 998.333 / 3126.667 556.667 / 3126.667 Weight last 48 hrs Weight 145 lb Physical Exam Narrative: Abdomen: Soft, minimally tender, mild suprapubic tenderness, incision clean dry and intact, Valdez to gravity Urinary Catheter Management: Valdez: Cath Placed During This Visit: yes Reason for Continuing Indwelling Catheter: Other Urinary Catheter Date of Insertion: 04/20/22 Urinary Catheter Time of Insertion: 11:35 Data : 04/22/22 06:28 04/22/22 06:28 A&P Assessment and plan (1) S/P laparoscopic-assisted sigmoidectomy: 77-year-old male status post laparoscopic sigmoidectomy and partial cystectomy for colovesical fistula, with postop ileus Keep n.p.o. Pepcid for GI prophylaxis Hold aspirin Plavix and Lovenox due to acute blood loss anemia SCD for DVT prophylaxis Ambulate with physical therapy Incentive spirometry Decrease IV fluids to 30 cc/h Status: Acute (2) Acute blood loss as cause of postoperative anemia: Patient's hemoglobin had dropped to 8 overnight from preop hemoglobin of 13. Patient has been hemodynamically stable and therefore we can hold off on transfusion at this point Recheck hemoglobin every 6 hours today Status: Acute (3) H/O partial cystectomy: Good urine output, no hematuria Valdez catheter will stay for 2 weeks Status: Acute Attestations Medical Necessity Statement*: Postop ileus and acute blood loss anemia requiring 1 more night of hospital stay Procedures Arterial Line Size (Gauge): 20 Coding Level of Care Code Acute Toaster Element Repairer for Chg Fwd Diagnoses S/P laparoscopic-assisted sigmoidectomy Z90.49 Acute blood loss as cause of postoperative anemia D62 H/O partial cystectomy Z90.6
[2022-04-21] MEDS: sennosides-docusate Tablet 1 TAB PO ×2 (08:46→17:18)
[2022-04-21] MEDS: metoprolol tartrate 50 mg Tablet 100 MG PO ×2 (08:47→17:18)
[2022-04-21] MEDS: clopidogrel 75 mg Tablet PO (08:47)
[2022-04-21] MEDS: sucralfate 1 gm Tablet PO ×4 (08:47→19:16)
[2022-04-21] MEDS: tamsulosin 0.4 mg Capsule PO (08:48)
[2022-04-21] MEDS: hydroCHLOROthiazide 25 mg Tablet 12.5 MG PO (08:49)
[2022-04-21] MEDS: aspirin 81 mg EC Tablet PO (08:49)
[2022-04-21] MEDS: topiramate 25 mg Tablet 50 MG PO (08:53)
[2022-04-21] MEDS: nortriptyline 10 mg Capsule 20 MG PO (08:53)
[2022-04-21] MEDS: sodium chlor 0.9% + KCl 20 mEq 20 MEQ/1,000 ML BAG 100 MEQ IV ×2 (08:56→17:25)
[2022-04-21] MEDS: enoxaparin 40 mg/0.4 mL Syringe SUBCUT (11:38)
[2022-04-21] MEDS: acetaminophen 325 mg Tablet 650 MG PO (13:09)
[2022-04-21 13:30] LABS: Hematocrit 24.5 % (42.0-52.0); Hemoglobin 7.8 g/dL (11.7-16.6)
[2022-04-21 17:49] LABS: Hematocrit 22.8 % (42.0-52.0); Hemoglobin 7.5 g/dL (11.7-16.6)
--- NOTE | 2022-04-21 18:09 | PM.PN ---
Subjective Subjective: Urology follow-up, postop day #1 Has remained afebrile with stable vital signs postoperatively. Urine has remained clear. He had a few very tiny clots. Very gentle small-volume irrigation revealed patency of the catheter with no clot returned. It appears that his urine output over the last shift has been about 200 cc. Was having some abdominal distention. No nausea or vomiting. Denies chest pain, shortness of breath. Has had some sundowning like symptoms which apparently is common for him per his 's report. Preoperative hemoglobin was 13.8. Has steadily declined but has stabilized around 7.5 with his last at 5:45 PM today. Creatinine is stable. Baseline 1.5 today's was 1.6. He looks well. Does look pale though. Medications: Reviewed: Yes Vitals/I&O/Wt Last Vital Signs Temp 97.5 F L 04/21/22 16:38 Pulse 86 04/21/22 16:38 Resp 15 04/21/22 16:38 BP 136/71 04/21/22 16:38 Pulse Ox 96 04/21/22 16:38 04/21/22 04/21/22 04/21/22 06:59 14:59 22:59 Intake Total 785 / 2785 1571.667 / 1571.667 848.333 / 2420.000 Output Total 170 / 520 200 / 200 Balance 615 / 2265 1571.667 / 1571.667 648.333 / 2220.000 Weight last 48 hrs Weight 145 lb Physical Exam Narrative: Alert no acute distress, pleasant and cooperative throughout exam Neck: Good range of motion Respiratory: No labored respiration Abdomen: Mild distention. Not dramatic. Incisions look healthy. : Catheter secured with StatLock. Draining clear urine. Good flow. No acute changes in genitourinary exam. Extremity: Good range of motion, no significant edema Urinary Catheter Management: Valdez: Cath Placed During This Visit: yes Reason for Continuing Indwelling Catheter: Perioperative Use in Selected Surgeries Urinary Catheter Date of Insertion: 04/20/22 Urinary Catheter Time of Insertion: 11:35 Data : 04/21/22 17:42 04/21/22 04:26 A&P Assessment and plan (1) Colovesical fistula: Postop day #1 status postrepair with partial bowel obstruction, partial cystectomy with cystorrhaphy. Status: Resolved (2) Acute blood loss as cause of postoperative anemia: We will hold postoperative anticoagulants. Continue serial monitoring. Status: Acute Attestations Medical Necessity Statement*: Postop day #1 major abdominal surgery. Requires hospitalization Procedures Arterial Line Size (Gauge): 20 Coding Level of Care Code Acute Regulatory Submissions Associate for Chg Fwd Diagnoses Colovesical fistula N32.1 Acute blood loss as cause of postoperative anemia D62
--- NOTE | 2022-04-21 19:31 | PC.NURSE ---
Patient resting in bed, VSS, AAOx4 with confusion and impulsiveness. Keeps pulling on IJ requiring dressing to be either replaced or reinforced. Statlock replaced multiple times from patient pulling on lovell catheter. Physicians notified during shift about trending down HH, increased abdominal distention and discomfort. Orders received, placed and followed through. Sitter at bedside, no new needs at this time. Room clean and clutter free with call light in reach. OOBTC with PT during shift, had a small BM at shift change with small amount of blood in stool expected after procedure. Patient instructed not to push when having BM. Report given at bedside to oncoming nurse.
--- NOTE | 2022-04-21 22:13 | PC.NURSE ---
Per report from day shift nurse, notify Dr. Ness if hemoglobin 7 or less.
[2022-04-21 22:16] LABS: Hemoglobin 6.8 g/dL (11.7-16.6)
[2022-04-21 22:36] LABS: Hematocrit 19.4 % (42.0-52.0)
[2022-04-22] VITALS (13 sets, daily range): BP systolic 126–178; BP diastolic 58–76; PULSE 53–78; RESP 18–24; TEMP 36.2–37.1; O2SAT 94–95
[2022-04-22] MEDS: sodium chloride 0.9% (100 ml) 100 ML ×2 (00:02→02:52)
[2022-04-22] MEDS: sodium chlor 0.9% + KCl 20 mEq 20 MEQ/1,000 ML BAG 100 MEQ IV (01:29)
[2022-04-22] MEDS: piperacillin-tazobactam 3.375 GM in sodium chloride 0.9% (plus) 50 ML IV ×3 (01:29→17:44)
[2022-04-22] MEDS: HYDROcodone-acetaminophen 5-325 mg Tablet 1 TAB PO ×4 (04:04→21:33)
--- NOTE | 2022-04-22 05:11 | PC.NURSE ---
Lab notified of H&H post blood transfusion needing to be draw at 0605.
[2022-04-22] MEDS: famotidine 20 mg/2 mL INJ IVP ×2 (05:16→20:21)
[2022-04-22 06:48] LABS: Basophils % 0.4 %; Hematocrit 28.3 % (42.0-52.0); Hemoglobin 9.5 g/dL (11.7-16.6); Lymphocytes # 1.3 10^3/uL (0.8-4.8); Lymphocytes % 12.5 %; Mean Corpuscular HGB Conc 33.6 g/dL (30.0-36.0); Mean Corpuscular Hemoglobin 28.6 pg (28.0-34.0); Mean Corpuscular Volume 85.2 fl (80-94); Mean Platelet Volume 9.5 fL (7.4-10.4); Monocytes # 0.8 10^3/uL (0.2-0.9); Monocytes % 7.9 %; Neutrophils # 8.25 10^3/uL (1.8-7.7); Neutrophils % 78.9 %; Nucleated Red Blood Cells % 0 %; Platelet Count 225 10^3/cmm (130-400); Red Blood Count 3.32 10^6/uL (4.1-5.3); Red Cell Distribution Width 14.6 % (12.1-15.1); White Blood Count 10.4 10^3/uL (4.0-10.0)
[2022-04-22 07:09] LABS: Blood Urea Nitrogen 25 mg/dL (8-23); Calcium 7.7 mg/dL (8.5-10.5); Carbon Dioxide 17 mmol/L (22-29); Chloride 110 mmol/L (98-107); Glucose 86 mg/dL (65-115); Osmolality Calculated 290 mOsm/kg (285-295); Sodium 138 mmol/L (136-145)
--- NOTE | 2022-04-22 08:06 | PM.PN ---
Subjective Subjective: Patient had bowel movements yesterday, continues to be a bit confused at times. Patient's hemoglobin dropped to 6.8 last night from a hemoglobin of 8 in the morning. Preoperative hemoglobin was 13. He has remained hemodynamically stable with good urine output. He received 2 units PRBC and his hemoglobin is up to 9.5. His Valdez catheter has clear urine Medications: Reviewed: Yes Vitals/I&O/Wt Last Vital Signs Temp 97.2 F L 04/22/22 05:05 Pulse 56 L 04/22/22 05:05 Resp 24 H 04/22/22 04:28 BP 151/68 04/22/22 05:05 Pulse Ox 94 04/22/22 04:28 04/21/22 04/22/22 04/22/22 22:59 06:59 14:59 Intake Total 1198.333 / 4426.667 1656.667 / 4426.667 Output Total 200 / 1300 1100 / 1300 Balance 998.333 / 3126.667 556.667 / 3126.667 Weight last 48 hrs Weight 145 lb Physical Exam Narrative: Abdomen: Soft, mild distention in the suprapubic area, minimal guarding, incision clean dry and intact Urinary Catheter Management: Valdez: Cath Placed During This Visit: yes Reason for Continuing Indwelling Catheter: Other Urinary Catheter Date of Insertion: 04/20/22 Urinary Catheter Time of Insertion: 11:35 Data : 04/22/22 06:28 04/22/22 06:28 A&P Assessment and plan (1) S/P laparoscopic-assisted sigmoidectomy: 77-year-old male status post laparoscopic sigmoidectomy and partial cystectomy for colovesical fistula, overall doing well has been having bowel movements Start full liquid diet Pepcid for GI prophylaxis Hold aspirin Plavix and Lovenox due to acute blood loss anemia SCD for DVT prophylaxis Ambulate with physical therapy Incentive spirometry Decrease IV fluids to 30 cc/h Status: Acute (2) Acute blood loss as cause of postoperative anemia: Patient's hemoglobin had dropped from 8 yesterday morning to 6.8 last night, received 2 units PRBC, hemoglobin is up to 9.5. Patient has been hemodynamically stable Recheck hemoglobin at 2 PM today Status: Acute (3) H/O partial cystectomy: Good urine output, no hematuria Valdez catheter will stay for 2 weeks Status: Acute Attestations Medical Necessity Statement*: Postop bleed as well as ileus requiring 1 more night of hospital stay Procedures Arterial Line Size (Gauge): 20 Coding Level of Care Code Acute Marketing Graphics Specialist for Chg Fwd Diagnoses S/P laparoscopic-assisted sigmoidectomy Z90.49 Acute blood loss as cause of postoperative anemia D62 H/O partial cystectomy Z90.6
[2022-04-22] MEDS: metoprolol tartrate 50 mg Tablet 100 MG PO ×2 (08:46→17:45)
[2022-04-22] MEDS: nortriptyline 10 mg Capsule 20 MG PO (08:46)
[2022-04-22] MEDS: hydroCHLOROthiazide 25 mg Tablet 12.5 MG PO (08:46)
[2022-04-22] MEDS: topiramate 25 mg Tablet 50 MG PO (08:47)
[2022-04-22] MEDS: sennosides-docusate Tablet 1 TAB PO (08:47)
[2022-04-22] MEDS: tamsulosin 0.4 mg Capsule PO (08:47)
[2022-04-22] MEDS: sucralfate 1 gm Tablet PO ×4 (08:47→20:21)
--- NOTE | 2022-04-22 10:54 | P.PN_ITS ---
Subjective Subjective: Urology follow-up: Postop day #2 States that he is feeling better. No fever or chills. No change in baseline symptoms. Still with some confusion. Received 2 units of packed RBCs yesterday. This morning's hemoglobin was 9.5 up from 6.8 yesterday evening. Creatinine stable at 1.5 Urine remains clear. Improved urine output since transfusion. Physical exam is benign. Medications: Reviewed: Yes Vitals/I&O/Wt Last Vital Signs Temp 97.2 F L 04/22/22 05:05 Pulse 56 L 04/22/22 05:05 Resp 24 H 04/22/22 04:28 BP 151/68 04/22/22 05:05 Pulse Ox 94 04/22/22 04:28 04/21/22 04/22/22 04/22/22 22:59 06:59 14:59 Intake Total 1198.333 / 2770.000 1656.667 / 4426.667 Output Total 200 / 200 1100 / 1300 Balance 998.333 / 2570.000 556.667 / 3126.667 Weight last 48 hrs Weight 145 lb Physical Exam Narrative: He is alert and cooperative. No acute distress Respirations are unlabored. No audible wheezing Abdomen is soft. There are some mild bruising at the base of the penis otherwise his incisions are clean and dry. No palpable hematomas etc. Catheter secured to right thigh with StatLock. Urine is clear Scrotum is normal. Testicles not indurated or swollen. Nontender. Overall physical exam is normal for postoperative state. Urinary Catheter Management: Valdez: Cath Placed During This Visit: yes Reason for Continuing Indwelling Catheter: Other Urinary Catheter Date of Insertion: 04/20/22 Urinary Catheter Time of Insertion: 11:35 Data : 04/22/22 06:28 04/22/22 06:28 A&P Assessment and plan (1) Colovesical fistula: Postop day #2 status post repair with partial bowel obstruction, partial cystectomy with cystorrhaphy. Stable postoperative course so far. Status: Resolved (2) Acute blood loss as cause of postoperative anemia: Stable now after 2 units of packed RBCs. 9.5 this morning. No acute evidence of bleeding Catheter is functioning well. No blood in the urine no clots. Status: Acute Attestations Medical Necessity Statement*: See attending Procedures Arterial Line Size (Gauge): 20 Coding Level of Care Code Acute Applications Project Manager for Chg Fwd Diagnoses Colovesical fistula N32.1 Acute blood loss as cause of postoperative anemia D62
[2022-04-22 14:19] LABS: Hematocrit 32.7 % (42.0-52.0); Hemoglobin 10.4 g/dL (11.7-16.6)
[2022-04-22] MEDS: sodium chlor 0.9% + KCl 20 mEq 20 MEQ/1,000 ML BAG 30 MEQ IV (17:49)
[2022-04-22] MEDS: ondansetron 2 mg/ML SDV 2 mL 4 MG IVP (20:24)
[2022-04-23] MEDS: piperacillin-tazobactam 3.375 GM in sodium chloride 0.9% (plus) 50 ML IV ×3 (02:11→17:27)
[2022-04-23 03:20] LABS: Basophils % 0.5 %; Eosinophils % 0.3 %; Hematocrit 26.7 % (42.0-52.0); Hemoglobin 9.1 g/dL (11.7-16.6); Lymphocytes # 1.8 10^3/uL (0.8-4.8); Lymphocytes % 19.8 %; Mean Corpuscular HGB Conc 34.1 g/dL (30.0-36.0); Mean Corpuscular Hemoglobin 28.8 pg (28.0-34.0); Mean Corpuscular Volume 84.5 fl (80-94); Mean Platelet Volume 9.7 fL (7.4-10.4); Monocytes # 0.7 10^3/uL (0.2-0.9); Monocytes % 8.3 %; Neutrophils # 6.24 10^3/uL (1.8-7.7); Neutrophils % 70.6 %; Nucleated Red Blood Cells % 0 %; Platelet Count 226 10^3/cmm (130-400); Red Blood Count 3.16 10^6/uL (4.1-5.3); Red Cell Distribution Width 14.4 % (12.1-15.1); White Blood Count 8.8 10^3/uL (4.0-10.0)
[2022-04-23 03:44] LABS: Anion Gap 12.8 (5-19); Blood Urea Nitrogen 18 mg/dL (8-23); Calcium 8.1 mg/dL (8.5-10.5); Carbon Dioxide 19 mmol/L (22-29); Chloride 109 mmol/L (98-107); Glucose 88 mg/dL (65-115); Osmolality Calculated 285 mOsm/kg (285-295); Potassium 3.8 mmol/L (3.5-5.1); Sodium 137 mmol/L (136-145)
[2022-04-23] MEDS: diphenhydrAMINE 50 mg/mL SDV 1mL 12.5 MG IVP (03:51)
[2022-04-23] MEDS: HYDROcodone-acetaminophen 5-325 mg Tablet 1 TAB PO ×2 (03:51→11:20)
[2022-04-23 04:20] VITALS: BP 168/73; PULSE 58; RESP 18; TEMP 36.6; O2SAT 94
[2022-04-23 08:49] VITALS: BP 179/79; PULSE 89; O2SAT 97
--- NOTE | 2022-04-23 09:10 | PC.SOCIAL ---
IMM update IMM updated with patient and signature obtained. Copy Pg 2 provided. Verbalized an understanding. Initialled, dated, timed, and placed in chart.
--- NOTE | 2022-04-23 09:35 | PM.PN ---
Subjective Subjective: Patient denies significant abdominal pain, nausea or vomiting, tolerating full liquid diet. His hemoglobin was up to 10.5 yesterday and is down to 9.1 today Medications: Reviewed: Yes Vitals/I&O/Wt Last Vital Signs Temp 97.9 F 04/23/22 04:20 Pulse 89 04/23/22 08:49 Resp 18 04/23/22 04:20 BP 179/79 04/23/22 08:49 Pulse Ox 97 04/23/22 08:49 04/22/22 04/23/22 04/23/22 22:59 06:59 14:59 Intake Total 392 / 1252 60 / 1252 290 / 290 Output Total 1500 / 2650 500 / 2650 Balance -1108 / -1398 -440 / -1398 290 / 290 Physical Exam Narrative: Abdomen: Soft, slight fullness in the suprapubic area but otherwise minimally tender, incision clean dry and intact, Valdez catheter in place, urine is clear Urinary Catheter Management: Valdez: Cath Placed During This Visit: yes Reason for Continuing Indwelling Catheter: Acute Urinary Retention or Obstruction Urinary Catheter Date of Insertion: 04/20/22 Urinary Catheter Time of Insertion: 11:35 Data : 04/23/22 02:33 04/23/22 02:33 A&P Assessment and plan (1) S/P laparoscopic-assisted sigmoidectomy: 77-year-old male status post laparoscopic sigmoidectomy and partial cystectomy for colovesical fistula, with postop ileus Advance to GI soft diet Pepcid for GI prophylaxis Hold aspirin Plavix and Lovenox due to acute blood loss anemia SCD for DVT prophylaxis Ambulate with physical therapy Incentive spirometry DC IV fluids Status: Acute (2) Acute blood loss as cause of postoperative anemia: Patient's hemoglobin is up to 10.5 after 2 units PRBC yesterday and is down to 9.1. He is otherwise hemodynamically stable. Recheck hemoglobin today Status: Acute (3) H/O partial cystectomy: Good urine output, no hematuria Valdez catheter will stay for 2 weeks Status: Acute Attestations Medical Necessity Statement*: Blood loss anemia requiring continued monitoring Procedures Arterial Line Size (Gauge): 20 Coding Level of Care Code Acute Supervisor Home Energy Consultant for Chg Fwd Diagnoses S/P laparoscopic-assisted sigmoidectomy Z90.49 Acute blood loss as cause of postoperative anemia D62 H/O partial cystectomy Z90.6
[2022-04-23] MEDS: hydroCHLOROthiazide 25 mg Tablet 12.5 MG PO (10:20)
[2022-04-23] MEDS: sucralfate 1 gm Tablet PO ×4 (10:20→20:53)
[2022-04-23] MEDS: metoprolol tartrate 50 mg Tablet 100 MG PO ×2 (10:20→17:27)
[2022-04-23] MEDS: nortriptyline 10 mg Capsule 20 MG PO (10:21)
[2022-04-23] MEDS: topiramate 25 mg Tablet 50 MG PO (10:21)
[2022-04-23] MEDS: tamsulosin 0.4 mg Capsule PO (10:23)
[2022-04-23] MEDS: famotidine 20 mg/2 mL INJ IVP ×2 (10:25→21:13)
--- NOTE | 2022-04-23 12:10 | P.PN_ITS ---
Subjective Subjective: Urology follow-up: Postop day #3 Afebrile, vital signs stable. Continue to drift down but slower with hemoglobin. Had a little bit of nausea today but seems to be tolerating it normal diet for lunch. No wound drainage etc. Urine remains clear and catheter is functioning well with good urine output. No changes recommended. I did review with him expectations regarding catheter for least 2 weeks postoperatively as well as a cystogram before considering catheter removal. Vitals/I&O/Wt Last Vital Signs Temp 97.9 F 04/23/22 04:20 Pulse 89 04/23/22 08:49 Resp 18 04/23/22 04:20 BP 179/79 04/23/22 08:49 Pulse Ox 97 04/23/22 08:49 04/22/22 04/23/22 04/23/22 22:59 06:59 14:59 Intake Total 392 / 1192 60 / 1252 290 / 290 Output Total 1500 / 2150 500 / 2650 Balance -1108 / -958 -440 / -1398 290 / 290 Physical Exam Narrative: Alert and oriented no acute distress Abdomen soft nontender Catheter draining good volume clear yellow urine. No clots of blood. Urinary Catheter Management: Valdez: Cath Placed During This Visit: yes Reason for Continuing Indwelling Catheter: Acute Urinary Retention or Obstruction Urinary Catheter Date of Insertion: 04/20/22 Urinary Catheter Time of Insertion: 11:35 Data : 04/23/22 02:33 04/23/22 02:33 A&P Assessment and plan (1) Colovesical fistula: Postop day #2 status post repair with partial bowel obstruction, partial cystectomy with cystorrhaphy. Progressing as expected. No immediate postoperative complications Status: Resolved (2) Acute blood loss as cause of postoperative anemia: Stable. Status: Acute Attestations Medical Necessity Statement*: See attending Procedures Arterial Line Size (Gauge): 20 Coding Level of Care Code Acute Booking Manager for Chg Fwd Diagnoses Colovesical fistula N32.1 Acute blood loss as cause of postoperative anemia D62
[2022-04-23 14:00] LABS: Hematocrit 37.9 % (42.0-52.0); Hemoglobin 12.8 g/dL (11.7-16.6)
[2022-04-23 19:25] VITALS: BP 177/102; PULSE 68; RESP 18; TEMP 36.4; O2SAT 97
[2022-04-24 00:39] VITALS: BP 158/86; PULSE 63; RESP 17; O2SAT 95
[2022-04-24] MEDS: piperacillin-tazobactam 3.375 GM in sodium chloride 0.9% (plus) 50 ML IV ×2 (01:26→10:00)
[2022-04-24] MEDS: sodium chlor 0.9% + KCl 20 mEq 20 MEQ/1,000 ML BAG 30 MEQ IV (01:27)
[2022-04-24 04:52] VITALS: BP 148/80; PULSE 63; RESP 17; TEMP 36.7; O2SAT 94
[2022-04-24 07:30] VITALS: BP 100/73; PULSE 61; RESP 17; TEMP 36.5; O2SAT 97
[2022-04-24] MEDS: metoprolol tartrate 50 mg Tablet 100 MG PO (10:00)
[2022-04-24] MEDS: sucralfate 1 gm Tablet PO ×2 (10:00→13:48)
[2022-04-24] MEDS: famotidine 20 mg/2 mL INJ IVP (10:00)
[2022-04-24] MEDS: tamsulosin 0.4 mg Capsule PO (10:01)
[2022-04-24] MEDS: sennosides-docusate Tablet 1 TAB PO (10:01)
[2022-04-24] MEDS: hydroCHLOROthiazide 25 mg Tablet 12.5 MG PO (10:01)
[2022-04-24] MEDS: topiramate 25 mg Tablet 50 MG PO (10:01)
[2022-04-24 11:07] VITALS: BP 184/99; PULSE 76; RESP 17; TEMP 37.1; O2SAT 98
--- NOTE | 2022-04-24 12:59 | P.PN_ITS ---
Subjective Subjective: Urology follow-up: Postop day #4 Doing well. Feeling stronger. Good appetite. Catheter draining clear urine. No trouble with occlusion or clots. Discharge planning in process. Recommendations: 1. We will schedule a cystogram on 05/07/2022 to confirm no leak prior to catheter removal in my office that same day. 2. Leg and night bag. Instructions have been given to the nursing staff. Vitals/I&O/Wt Last Vital Signs Temp 98.7 F 04/24/22 11:07 Pulse 76 04/24/22 11:07 Resp 17 04/24/22 11:07 BP 184/99 04/24/22 11:07 Pulse Ox 98 04/24/22 11:07 04/23/22 04/24/22 04/24/22 22:59 06:59 14:59 Intake Total 220 / 510 999 / 1509 480 / 480 Output Total 800 / 800 Balance 220 / 510 199 / 709 480 / 480 Physical Exam Narrative: He looks well. Abdomen is soft. Urine is clear. Alert and oriented. Neurologically intact. Extremities good range of motion. Urinary Catheter Management: Valdez: Cath Placed During This Visit: yes Reason for Continuing Indwelling Catheter: Acute Urinary Retention or Obstruction Urinary Catheter Date of Insertion: 04/20/22 Urinary Catheter Time of Insertion: 11:35 Data : 04/23/22 13:40 04/23/22 02:33 A&P Assessment and plan (1) Colovesical fistula: Status post partial colectomy, partial cystectomy and closure of bladder. Doing well. No current problems related to bladder repair. We will maintain the catheter for least 2 weeks postop and perform cystogram prior to evaluation for catheter removal. Status: Resolved (2) Acute blood loss as cause of postoperative anemia: Doing well. No further blood loss Status: Acute Attestations Medical Necessity Statement*: See attending Procedures Arterial Line Size (Gauge): 20 Coding Level of Care Code Acute Mental Health Unit Lead Psychologist for Chg Fwd Diagnoses Colovesical fistula N32.1 Acute blood loss as cause of postoperative anemia D62
--- NOTE | 2022-04-24 13:41 | P.PN_ITS ---
Subjective Subjective: Patient has been doing well, having bowel movements, no nausea or vomiting, tolerating a GI soft diet hemoglobin is stable Vitals/I&O/Wt Last Vital Signs Temp 98.7 F 04/24/22 11:07 Pulse 76 04/24/22 11:07 Resp 17 04/24/22 11:07 BP 184/99 04/24/22 11:07 Pulse Ox 98 04/24/22 11:07 04/23/22 04/24/22 04/24/22 22:59 06:59 14:59 Intake Total 220 / 1509 999 / 1509 480 / 480 Output Total 800 / 800 Balance 220 / 709 199 / 709 480 / 480 Physical Exam Narrative: Abdomen: Soft, nondistended, minimally tender, incision clean dry and intact. He has significant ecchymosis of the abdominal wall from postop bleeding. to gravity Urinary Catheter Management: Valdez: Cath Placed During This Visit: yes Reason for Continuing Indwelling Catheter: Acute Urinary Retention or Obstruction Urinary Catheter Date of Insertion: 04/20/22 Urinary Catheter Time of Insertion: 11:35 Data : 04/23/22 13:40 04/23/22 02:33 A&P Assessment and plan (1) S/P laparoscopic-assisted sigmoidectomy: 77-year-old male status post laparoscopic sigmoidectomy and partial cystectomy for colovesical fistula, with postop ileus resolved GI soft diet Status: Acute (2) Acute blood loss as cause of postoperative anemia: Patient's hemoglobin is up to 12, DC home today Status: Acute (3) H/O partial cystectomy: Good urine output, no hematuria Valdez catheter will stay for 2 weeks Status: Acute Attestations Medical Necessity Statement*: DC home today Procedures Arterial Line Size (Gauge): 20 Coding Level of Care Code Acute Automatic Blocker for Chg Fwd Diagnoses S/P laparoscopic-assisted sigmoidectomy Z90.49 Acute blood loss as cause of postoperative anemia D62 H/O partial cystectomy Z90.6
--- NOTE | 2022-04-24 13:41 | P.DS_ITS ---
Discharge Providers Date of Admission: 04/20/22 17:00 Date of Discharge: April 24, 2022 Attending Provider at Admission: Jose Ness MD Attending Provider at Discharge: Braulio Redd MD Diagnoses at Discharge Discharge Diagnosis (1) Colovesical fistula: Status: Resolved (2) Acute blood loss as cause of postoperative anemia: Status: Acute Reason for Visit Reason for Visit: Status post sigmoid colectomy Brief History: This is a 77-year-old male who has been dealing with recurrent UTIs for 3 months and was finally diagnosed with colovesical fistula secondary to diverticulosis. Patient underwent laparoscopic sigmoid colectomy, partial cystectomy and colonoscopy. Hospital Course Hospital Course Patient is admitted to the hospital postop and by day 2 he had return of bowel function. He had a five-point drop in hemoglobin on first postop night. He was hemodynamically stable and had good urine output and on day 3 he received 2 units PRBC since his hemoglobin dropped to 6.8. Over the next 48 hours his hemoglobin and his vital signs were stable and he was tolerating a GI soft diet and having bowel movements. At time of discharge his incisions were clean dry and intact and he had a Valdez catheter in place without any evidence of hematuria. Physical Exam Urinary Catheter Management: Valdez: Cath Placed During This Visit: yes Reason for Continuing Indwelling Catheter: Acute Urinary Retention or Obstruction Urinary Catheter Date of Insertion: 04/20/22 Urinary Catheter Time of Insertion: 11:35 Discharge Data Studies Completed and Pending Pending at discharge Category Date Time Status ES surgery / GI images Routine Exams 04/20/22 08:48 Taken Pathology: Surgical [PTH] Routine Pth 04/20/22 16:01 Received Laboratory Results WBC 8.8 10^3/uL (4.0-10.0) 04/23/22 02:33 RBC 3.16 10^6/uL (4.1-5.3) L 04/23/22 02:33 Hgb 12.8 g/dL (11.7-16.6) D 04/23/22 13:40 Hct 37.9 % (42.0-52.0) L D 04/23/22 13:40 MCV 84.5 fl (80-94) 04/23/22 02:33 MCH 28.8 pg (28.0-34.0) 04/23/22 02:33 MCHC 34.1 g/dL (30.0-36.0) 04/23/22 02:33 RDW 14.4 % (12.1-15.1) 04/23/22 02:33 Plt Count 226 10^3/cmm (130-400) 04/23/22 02:33 MPV 9.7 fL (7.4-10.4) 04/23/22 02:33 Neut % (Auto) 70.6 % 04/23/22 02:33 Lymph % (Auto) 19.8 % 04/23/22 02:33 Maries % (Auto) 8.3 % 04/23/22 02:33 Eos % (Auto) 0.3 % 04/23/22 02:33 Baso % (Auto) 0.5 % 04/23/22 02:33 Neut # (Auto) 6.24 10^3/uL (1.8-7.7) 04/23/22 02:33 Lymph # (Auto) 1.8 10^3/uL (0.8-4.8) 04/23/22 02:33 Maries # (Auto) 0.7 10^3/uL (0.2-0.9) 04/23/22 02:33 Eos # (Auto) 0.0 10^3/uL (0.0-0.8) 04/23/22 02:33 Baso # (Auto) 0.0 10^3/uL (0.0-0.1) 04/23/22 02:33 Nucleated RBC % (auto) 0 % 04/23/22 02:33 Nucleated RBCs # 0.0 /100WBC 04/23/22 02:33 Sodium 137 mmol/L (136-145) 04/23/22 02:33 Potassium 3.8 mmol/L (3.5-5.1) 04/23/22 02:33 Chloride 109 mmol/L (98-107) H 04/23/22 02:33 Carbon Dioxide 19 mmol/L (22-29) L 04/23/22 02:33 Anion Gap 12.8 (5-19) 04/23/22 02:33 BUN 18 mg/dL (8-23) 04/23/22 02:33 Creatinine 1.4 mg/dL (0.7-1.2) H 04/23/22 02:33 GFR Calculation Not Reportable 04/23/22 02:33 Glucose 88 mg/dL (65-115) 04/23/22 02:33 Calculated Osmolality 285 mOsm/kg (285-295) 04/23/22 02:33 Calcium 8.1 mg/dL (8.5-10.5) L 04/23/22 02:33 Blood Type A Positive 04/20/22 09:08 Rho(D) Type Positive 04/20/22 09:08 Antibody Screen Negative 04/20/22 09:08 Crossmatch See Detail 04/20/22 09:08 Vitals Last Vital Signs Temp 98.7 F 04/24/22 11:07 Pulse 76 04/24/22 11:07 Resp 17 04/24/22 11:07 BP 184/99 04/24/22 11:07 Pulse Ox 98 04/24/22 11:07 Discharge Plan Discharge Patient Disposition: Home Condition: Stable Prescriptions: New hydrocodone-acetaminophen 5-325 mg tablet 1 tab PO Q6H PRN (Reason: pain) Qty: 20 0RF ondansetron HCl 4 mg tablet 4 mg PO Q8H 5 Days Qty: 15 0RF Senna with Docusate Sodium 8.6-50 mg tablet 1 tab-cap PO BID Qty: 30 0RF Continued metoprolol tartrate 100 mg tablet 100 mg PO BID 0RF ferrous sulfate [FeroSul] 325 mg (65 mg iron) tablet 325 mg PO DAILY 0RF aspirin 81 mg tablet,delayed release (DR/EC) 81 mg PO DAILY 0RF nortriptyline 10 mg capsule 20 mg PO DAILY 0RF lamotrigine [Lamictal ODT] 100 mg tablet,disintegrating 100 mg PO DAILY 0RF hydrochlorothiazide 12.5 mg tablet 12.5 mg PO DAILY 0RF topiramate 50 mg tablet 50 mg PO DAILY 0RF sucralfate 1 gram tablet 1 g PO QID 0RF cetirizine [All Day Allergy (cetirizine)] 10 mg tablet 10 mg PO DAILY PRN (Reason: Allergy Symptoms) 0RF ICaps AREDS 14,320-226-200 [id number]-[id number] capsule 1 cap PO BID 0RF cyanocobalamin (vitamin B-12) 1,000 mcg capsule 1,000 mcg PO DAILY 0RF tamsulosin 0.4 mg capsule 0.4 mg PO DAILY 0RF alendronate 70 mg tablet 70 mg PO .weekly 0RF acetaminophen 500 mg tablet 500 mg PO Q6H PRN (Reason: pain) Qty: 24 0RF lidocaine 5 % adhesive patch,medicated 1 patch topical DAILY PRN (Reason: Pain, Mild) Qty: 20 0RF Rx Instructions: leave on most painful area for up to 12 hrs orphenadrine citrate 100 mg tablet extended release 100 mg PO BID PRN (Reason: Pain, Mild) Qty: 20 0RF hydrocodone-acetaminophen 5-325 mg tablet 1 tab PO Q6H PRN (Reason: pain) Qty: 14 0RF ondansetron 4 mg tablet,disintegrating 4 mg PO Q6H PRN (Reason: nausea and vomiting) Qty: 14 0RF Held clopidogrel 75 mg tablet 75 mg PO DAILY 0RF Hold Instructions: Resume on 04/28/22. Discontinued erythromycin 500 mg tablet 500 mg PO ONCE Qty: 3 0RF Rx Instructions: Take 1 tablet at 3PM, 4PM, and 10PM neomycin 500 mg tablet 1 g PO ONCE Qty: 6 0RF Rx Instructions: Take 2 tablets at 3PM, 4PM, and 10PM Discharge Orders: Discharge Order (Routine); Ordered 04/24/22 Ordered By: Braulio Redd Referrals: Braulio Redd MD [Physician] - 05/07/22 12:45 pm (Cystogram prior to office visit. Likely catheter removal.) Jose Ness MD [Physician] - 05/04/22 Patient Instructions: Hydrocodone/Acetaminophen (By mouth), Ondansetron (By mouth), Senna (By mouth), Valdez Catheter Placement and Care (DC), Colectomy Diet (DC), Opioid Safety Activity Restrictions/Additional Instructions: Urology instructions: 1. We will see you back on 05/07/2022 for a cystogram, an x-ray test, to check to make sure there is no leakage from the bladder repair. After the cystogram come to my office for evaluation. Plan will be to remove the catheter if the cystogram Looks normal. 2. Until that time the catheter will be in place. You can use a leg bag or night bag, whichever you prefer. Diet Low residue GI soft diet increase fluid intake as much as possible. Activity Avoid strenuous activity for 2 weeks but continue with daily activities including walking as tolerated. Do not lift more than 10 pounds for 2 weeks Return to work/school You can return to work/ school whenever you feel ready as long as you don?t have to lift more than 10 pounds at work. If you have paperwork that needs to be completed for time off from work, please contact my office Driving You can resume driving once you stop using narcotic pain medications, and transition to non-opioid pain medications like Tylenol, Motrin, Aleve, etc. Medications Pain Take opioid pain medications as prescribed and transition to non-opioid pain medications like Tylenol, Motrin, Aleve etc. over the next few days. The goal of the pain medications is to make the pain bearable and not to be pain free since you recently had surgery. Resume all home medications after surgery as per the medication reconciliation list Nausea Nausea is common after surgery, take nausea medications as needed and stay on a liquid bland diet until nausea resolves. Constipation The combination of surgery, anesthesia and pain medications can result in constipation. Take stool softeners as prescribed. If you do not have a bowel movement in 3 days, please take an [id number]-ucq-[id number] laxative like MiraLAX to address the constipation. Shower It is ok to shower but avoid getting the wound wet for 48 hours after surgery. Do not soak in bathtub, swimming pool or hot tub for 2 weeks. Wound care If glue has been used on your incisions after surgery, the glue on the incision will peel slowly over the next two weeks. The stitches used are dissolvable and will not need to be removed. Do not apply antibiotics or other medications on the incision Problems with the wound: you can develop some redness around the incision from bruising after surgery. If there is increasing pain, redness, tenderness around the incision with or without drainage, please contact my office to rule out an infection. Sometimes the skin at the incisions can separate, resulting in reopening of the wound. Cover the wound with antibiotic cream and sterile dressings and contact my office. Contact physician Call the office at [phone] during office hours or go the Emergency Room ?Fever to 100.4 or greater ?Shaking chills ?Pain that increases over time ?Redness, warmth, or pus draining from incision sites ?Persistent nausea or inability to take in liquids Discharge Attestations Time Spent in Discharge Care*: less than 30 min Quality Metrics Clinical Quality Measures [ No reported AMI, CVA or VTE this stay] Coding Level of Care Code Acute Chg FW DC note Diagnoses Colovesical fistula N32.1 Acute blood loss as cause of postoperative anemia D62
[2022-04-24 15:00] VITALS: BP 184/99; PULSE 76; RESP 17; TEMP 37.1; O2SAT 98
[2022-04-24 15:23] VITALS: BP 186/81; PULSE 75; RESP 17; TEMP 37.1; O2SAT 90
--- NOTE | 2022-04-24 15:48 | PC.NURSE ---
Called pharmacy and spoke with Rip. Pulled medication from [facility] on [address] and administer it to 278. Therefore it looks like 268 got back to back doses of [place] but did not.
[2022-04-24] MEDS: HYDROcodone-acetaminophen 5-325 mg Tablet 1 TAB PO (15:53)
--- NOTE | 2022-04-24 16:01 | PC.NURSE ---
Pt was complaining of lower abdominal pain and when looking at his statlock I noticed that the catheter had been folded twice. I unkinked the lovell catheter and placed it in the stat lock correctly. I then bladder scanned the patient and found no residual urine. Patient was given a pain pill before being wheeled out.
== END 2022-04-24 16:03 | disposition home or self-care (01) | DRG 654 ==
LOC: MEDSURG 04-23 08:21
PROVIDERS: Admitting Provider Surgery; Visit Provider Urology
PROC: 0DTN4ZZ Resection of Sigmoid Colon, Percutaneous Endoscopic Approach (ICD-10-PCS; principal; 2022-04-20 09:00)
PROC: 0DTN4ZZ Resection of Sigmoid Colon, Percutaneous Endoscopic Approach (ICD-10-PCS; CPT 44204; 2022-04-20 09:00)
PROC: 0DJD8ZZ Inspection of Lower Intestinal Tract, Via Natural or Artificial Opening Endoscopic (ICD-10-PCS; CPT 45378; 2022-04-20 09:00)
PROC: 0TBB0ZZ Excision of Bladder, Open Approach (ICD-10-PCS; 2022-04-20 09:00)
DX: N32.1 Vesicointestinal fistula (principal); N39.0 Urinary tract infection, site not specified; D62 Acute posthemorrhagic anemia; Z87.820 Personal history of traumatic brain injury; K57.30 Diverticulosis of large intestine without perforation or abscess without bleeding; Z79.891 Long term (current) use of opiate analgesic; Z79.82 Long term (current) use of aspirin
CPT/HCPCS: 36415; 36430; 51702; 80048; 85014; 85018; 85025; 86850; 86900; 86920; 88307; 88309; 93005; 94664; 96372; 97116; 97161; 97530; C9290; J1100; J1170; J1200; J1650; J2370; J2405; J2543; J2704; J2710; J3010; J3490; J7030; J7040; P9016; P9041

== ENCOUNTER 2022-04-25 05:55 | Emergency (ER) | payer OTHER, MEDICARE, SELFPAY ==
[2022-04-25 05:58] VITALS: PULSE 71; RESP 18; TEMP 36.6; O2SAT 95; BMI 24.1
--- NOTE | 2022-04-25 06:36 | W.ED.GENADLT ---
HPI - General Adult General: Chief complaint: General Medical Stated complaint: CATH PROBLEMS Time Seen by Provider: 04/25/22 05:56 Source: patient Mode of arrival: ambulatory Limitations: no limitations History of Present Illness: 77-year-old male presents emergency room with complaints of a catheter problem. Chronic COVID talk to him he states that his told him he fell and caused problems with his catheter. He cannot really give me much for details around the fall. There is no family at the bedside initially. On closer exam there is a lot of blood around the perineum and at the head of the penis but there is no catheter present. Patient recently had a colovesical fistula repair done by Dr. Ness and Dr. Redd.According to the notes from the recent hospitalization from when she was discharged yesterday patient was to return on 627 for a cystogram and possible removal of catheter on that day. Onset (ago): minute(s) Relieving factors: none Exacerbating factors: none Associated symptoms: Reports confusion; Deny chest pain, cough, diaphoresis, decreased appetite, dyspnea, fevers/chills, headache(s), malaise, nausea, rash, palpitations, seizures, short of breath, syncope, vomiting or weakness Treatments prior to arrival: none Review of Systems Const: Denies: fever(s), chills, malaise or diaphoresis ENMT: Denies: throat pain, ear or mastoid pain, nasal discharge or nasal congestion Card: Denies: chest pain, palpitations or syncope Resp: Denies: dyspnea GI: Denies: nausea or vomiting : Denies: flank pain, dysuria, urinary frequency or urinary urgency Skin/Breast: Denies: rash Neuro: Reports: confusion; Denies: headache(s) PFSH ED PFSH: Medical History H/O traumatic brain injury History of diverticulitis Surgical History H/O hemorrhoidectomy X3 H/O partial cystectomy (~04/20/22) H/O shoulder surgery right H/O sinus surgery H/O vascular surgery 5 on right leg and 2 on left History of ankle surgery right -due to fracture History of cataract surgery bilateral History of colonoscopy with polypectomy 2019 History of esophagogastroduodenoscopy (EGD) 2019 S/P insertion of spinal cord stimulator S/P laparoscopic-assisted sigmoidectomy (~04/20/22) Family History Mother , at age 83 No problems noted. Father , at age 78 Alzheimer's dementia Social History Smoking and tobacco status: never smoked Alcohol intake: never Marital status: Current occupational status: disabled History of recent travel: No Physical Exam Const: COMMON NORMALS: no acute distress GENERAL APPEARANCE: cooperative and comfortable ORIENTATION/CONSCIOUSNESS: Yes awake HENMT: COMMON NORMALS: normocephalic, atraumatic and hearing grossly normal bilaterally HEAD & SCALP: normocephalic and atraumatic Neck/C-Spine: COMMON NORMALS: no JVD Resp: COMMON NORMALS: normal respiratory effort, No retractions, No use of accessory muscles and clear to auscultation bilaterally AUSCULTATION: clear to auscultation bilaterally Cardio: COMMON NORMALS: no JVD, regular rate, regular rhythm and No murmurs present (Cardio) RATE: regular rate RHYTHM: regular rhythm GI: COMMON NORMALS: Soft to palpation and No hepatosplenomegaly present AUSCULTATION: Yes normoactive bowel sounds PALPATION: Yes Soft to palpation, No Tenderness to palpation present (GI), No Guarding due to palpation present (GI) and Yes No hepatosplenomegaly present Extremity: COMMON NORMALS: normal to inspection, capillary refill normal, no clubbing, cyanosis or edema, no calf tenderness and no pedal edema Skin: COMMON NORMALS: no rashes or lesions noted GENERAL SKIN EXAM: no rashes or lesions noted Course Vital Signs: Vital signs: Vital Signs Temperature 97.9 F 04/25/22 05:58 Pulse Rate 71 04/25/22 05:58 Respiratory Rate 18 04/25/22 05:58 Pulse Oximetry 95 04/25/22 05:58 [facility] - General Adult Medical Decision Making Patient's cath without the timing a lot of blood at the meatus I called Dr. Dr. Redd he recommended just replacing the cath was large cath as we could get in nurse initially put in a 16 but that immediately clotted we were not able to irrigate the bladder with straight we remove that replaced with an 18 we are able to get a large amount of irrigation through it and did get some clots the 16-Chinese catheter was clotted off when we removed it. He is doing much better now discussed with the who is a caregiver urine output generally should be at least 500 mL in 10-hour. She should keep her regular scheduled follow-up with Dr. Redd and with Dr. Ness from the colovesicular repair. If she has any problems with the catheter or is it is not draining properly return to the emergency room or Dr. Redd's office. Medical Records I reviewed the patient's medical records. Lab Data I reviewed the patient's lab results. : 04/25/22 08:20 04/25/22 06:56 Laboratory Results WBC 12.8 10^3/uL (4.0-10.0) H 04/25/22 08:20 Corrected WBC Cancelled 04/25/22 06:56 RBC 3.96 10^6/uL (4.1-5.3) L 04/25/22 08:20 Hgb 11.5 g/dL (11.7-16.6) L 04/25/22 08:20 Hct 33.9 % (42.0-52.0) L 04/25/22 08:20 MCV 85.6 fl (80-94) 04/25/22 08:20 MCH 29.0 pg (28.0-34.0) 04/25/22 08:20 MCHC 33.9 g/dL (30.0-36.0) 04/25/22 08:20 RDW 14.6 % (12.1-15.1) 04/25/22 08:20 Plt Count 299 10^3/cmm (130-400) 04/25/22 08:20 MPV 8.9 fL (7.4-10.4) 04/25/22 08:20 Gran % Cancelled 04/25/22 06:56 Neut % (Auto) 78.6 % 04/25/22 08:20 Lymph % (Auto) 13.3 % 04/25/22 08:20 Daniels % (Auto) 6.7 % 04/25/22 08:20 Eos % (Auto) 0.7 % 04/25/22 08:20 Baso % (Auto) 0.2 % 04/25/22 08:20 Neut # (Auto) 10.10 10^3/uL (1.8-7.7) H 04/25/22 08:20 Lymph # (Auto) 1.7 10^3/uL (0.8-4.8) 04/25/22 08:20 Daniels # (Auto) 0.9 10^3/uL (0.2-0.9) 04/25/22 08:20 Eos # (Auto) 0.1 10^3/uL (0.0-0.8) 04/25/22 08:20 Baso # (Auto) 0.0 10^3/uL (0.0-0.1) 04/25/22 08:20 Absolute Gran (auto) Cancelled 04/25/22 06:56 Nucleated RBC % (auto) 0 % 04/25/22 08:20 Nucleated RBCs # 0.0 /100WBC 04/25/22 08:20 Sodium 136 mmol/L (136-145) 04/25/22 06:56 Potassium 3.6 mmol/L (3.5-5.1) 04/25/22 06:56 Chloride 103 mmol/L (98-107) 04/25/22 06:56 Carbon Dioxide 23 mmol/L (22-29) 04/25/22 06:56 Anion Gap 13.6 (5-19) 04/25/22 06:56 BUN 18 mg/dL (8-23) 04/25/22 06:56 Creatinine 1.6 mg/dL (0.7-1.2) H 04/25/22 06:56 GFR Calculation Not Reportable 04/25/22 06:56 Glucose 100 mg/dL (65-115) 04/25/22 06:56 Calculated Osmolality 284 mOsm/kg (285-295) L 04/25/22 06:56 Calcium 8.8 mg/dL (8.5-10.5) 04/25/22 06:56 Discharge Plan Discharge Patient Disposition: Home Clinical Impression: Displacement of Valdez catheter, Colovesical fistula Condition: Stable Prescriptions: No Action metoprolol tartrate 100 mg tablet 100 mg PO BID 0RF ferrous sulfate [FeroSul] 325 mg (65 mg iron) tablet 325 mg PO DAILY 0RF aspirin 81 mg tablet,delayed release (DR/EC) 81 mg PO DAILY 0RF nortriptyline 10 mg capsule 20 mg PO DAILY 0RF lamotrigine [Lamictal ODT] 100 mg tablet,disintegrating 100 mg PO DAILY 0RF hydrochlorothiazide 12.5 mg tablet 12.5 mg PO DAILY 0RF topiramate 50 mg tablet 50 mg PO DAILY 0RF sucralfate 1 gram tablet 1 g PO QID 0RF clopidogrel 75 mg tablet 75 mg PO DAILY 0RF Hold Instructions: Resume on 04/28/22. cetirizine [All Day Allergy (cetirizine)] 10 mg tablet 10 mg PO DAILY PRN (Reason: Allergy Symptoms) 0RF ICaps AREDS [id number],[id number]-[id number] capsule 1 cap PO BID 0RF cyanocobalamin (vitamin B-12) 1,000 mcg capsule 1,000 mcg PO DAILY 0RF tamsulosin 0.4 mg capsule 0.4 mg PO DAILY 0RF alendronate 70 mg tablet 70 mg PO .weekly 0RF acetaminophen 500 mg tablet 500 mg PO Q6H PRN (Reason: pain) Qty: 24 0RF lidocaine 5 % adhesive patch,medicated 1 patch topical DAILY PRN (Reason: Pain, Mild) Qty: 20 0RF Rx Instructions: leave on most painful area for up to 12 hrs orphenadrine citrate 100 mg tablet extended release 100 mg PO BID PRN (Reason: Pain, Mild) Qty: 20 0RF hydrocodone-acetaminophen 5-325 mg tablet 1 tab PO Q6H PRN (Reason: pain) Qty: 14 0RF ondansetron 4 mg tablet,disintegrating 4 mg PO Q6H PRN (Reason: nausea and vomiting) Qty: 14 0RF hydrocodone-acetaminophen 5-325 mg tablet 1 tab PO Q6H PRN (Reason: pain) Qty: 20 0RF ondansetron HCl 4 mg tablet 4 mg PO Q8H 5 Days Qty: 15 0RF Senna with Docusate Sodium 8.6-50 mg tablet 1 tab-cap PO BID Qty: 30 0RF Discharge Orders: Discharge ED (Routine); Ordered 04/25/22 Ordered By: Hubert Arias Discharge Diet: Usual diet Discharge Activity: Limit activity as instructed Patient Instructions: Opioid Safety Activity Restrictions/Additional Instructions: Keep follow-up appointments with Dr. Redd and Dr. Ness as previously scheduled return if you have further problems. 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
[2022-04-25 07:41] LABS: Anion Gap 13.6 (5-19); Blood Urea Nitrogen 18 mg/dL (8-23); Calcium 8.8 mg/dL (8.5-10.5); Carbon Dioxide 23 mmol/L (22-29); Chloride 103 mmol/L (98-107); Glucose 100 mg/dL (65-115); Osmolality Calculated 284 mOsm/kg (285-295); Potassium 3.6 mmol/L (3.5-5.1); Sodium 136 mmol/L (136-145)
--- NOTE | 2022-04-25 08:18 | PC.NURSE ---
Inserted lovell cath 16fr
[2022-04-25 08:27] LABS: Basophils % 0.2 %; Eosinophils # 0.1 10^3/uL (0.0-0.8); Eosinophils % 0.7 %; Hematocrit 33.9 % (42.0-52.0); Hemoglobin 11.5 g/dL (11.7-16.6); Lymphocytes # 1.7 10^3/uL (0.8-4.8); Lymphocytes % 13.3 %; Mean Corpuscular HGB Conc 33.9 g/dL (30.0-36.0); Mean Corpuscular Volume 85.6 fl (80-94); Mean Platelet Volume 8.9 fL (7.4-10.4); Monocytes # 0.9 10^3/uL (0.2-0.9); Monocytes % 6.7 %; Neutrophils % 78.6 %; Nucleated Red Blood Cells % 0 %; Platelet Count 299 10^3/cmm (130-400); Red Blood Count 3.96 10^6/uL (4.1-5.3); Red Cell Distribution Width 14.6 % (12.1-15.1); White Blood Count 12.8 10^3/uL (4.0-10.0)
== END 2022-04-25 11:47 | disposition home or self-care (01) ==
PROVIDERS: Emergency Medicine; Emergency Provider Family Medicine
DX: T83.021A Displacement of indwelling urethral catheter, initial encounter (principal); N32.1 Vesicointestinal fistula; R41.0 Disorientation, unspecified; Z90.6 Acquired absence of other parts of urinary tract
CPT/HCPCS: 36415; 80048; 85025; 99283

== ENCOUNTER 2022-04-29 12:43 | Inpatient (IN) | payer OTHER, MEDICARE, SELFPAY ==
[2022-04-29 12:49] VITALS: BP 112/77; PULSE 85; RESP 18; TEMP 35.9; O2SAT 90; BMI 24.4
[2022-04-29 13:14] LABS: Basophils # 0.1 10^3/uL (0.0-0.1); Basophils % 0.3 %; Hematocrit 38.8 % (42.0-52.0); Hemoglobin 12.9 g/dL (11.7-16.6); Lymphocytes # 0.6 10^3/uL (0.8-4.8); Lymphocytes % 2.2 %; Mean Corpuscular HGB Conc 33.2 g/dL (30.0-36.0); Mean Corpuscular Hemoglobin 28.7 pg (28.0-34.0); Mean Corpuscular Volume 86.2 fl (80-94); Mean Platelet Volume 9.3 fL (7.4-10.4); Monocytes # 0.5 10^3/uL (0.2-0.9); Monocytes % 1.9 %; Neutrophils # 25.43 10^3/uL (1.8-7.7); Nucleated Red Blood Cells % 0 %; Platelet Count 502 10^3/cmm (130-400); Red Cell Distribution Width 14.6 % (12.1-15.1); White Blood Count 26.7 10^3/uL (4.0-10.0)
--- NOTE | 2022-04-29 13:21 | XRR_ITS ---
PROCEDURE INFORMATION: Exam: XR Chest Exam date and time: 04/29/2022 1:27 PM Age: 77 years old Clinical indication: Shortness of breath; Additional info: Epigastric discomfort TECHNIQUE: Imaging protocol: Radiologic exam of the chest. Views: 1 view. COMPARISON: CR Chest 1 [place] [id number] 02/14/2018 7:19 PM FINDINGS: Lungs: Unremarkable. No consolidation. Pleural spaces: Unremarkable. No pleural effusion. No pneumothorax. Heart/Mediastinum: Unremarkable. No cardiomegaly. Bones/joints: Unremarkable. There is an electronic stimulator in place in the mid dorsal spine. XR/XR chest 1V portable [id number] IMPRESSION: 1. No acute findings. 2. Electronic stimulator mid dorsal spine
--- NOTE | 2022-04-29 13:21 | ECG_ITS ---
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 Measurements Intervals [place] Rate: 88 P: 2 SC: 137 QRS: -33 QRSD: 100 T: -30 QT: 384 QTc: 466 Interpretive Statements SINUS RHYTHM WITH SINUS ARRHYTHMIA LEFT AXIS DEVIATION [QRS AXIS < -30] POSSIBLE ANTERIOR MYOCARDIAL INFARCTION , PROBABLY OLD [30 ms Q WAVE IN V3/V4, OR R < 0.2 mV IN V4] Compared to ECG 04/29/2022 14:24:53 Left-axis deviation now present Myocardial infarct finding still present Electronically Signed On 04-30-2022 21:25:27 CDT by Niecy Rios M.D. [email or web address]
--- NOTE | 2022-04-29 13:21 | W.ED.NAVMDI ---
Documented by User: ASHLEY Ha 04/30/22 07:34 HPI - Nausea/Vomiting/Diarrhea General: Chief complaint: Nausea/Vomiting/Diarrhea Stated complaint: n/v Time Seen by Provider: 04/29/22 12:57 History of Present Illness: Patient is a 77-year-old male comes to the ED with nausea and vomiting. 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 patient was seen here in the ED back on April 25 because he pulled out his Valdez catheter and it needed to be replaced. Nausea and vomiting have been going on now for the past 3 days. He has not been able to keep any food or fluids down since symptoms started. He endorses having some acid reflux symptoms as well. He has no current Valdez catheter complaints. denies any fever, chills, abdominal pain, chest pain, bladder or bowel symptoms. Associated nausea: Yes Associated symtoms: Reports fatigue (Generalized weakness and fatigue) and nausea; Denies change in vision, chest pain, dysuria, headache(s) or palpitations Review of Systems Const: Reports: fatigue (Generalized weakness and fatigue); Denies: fever(s) or chills Eyes: Denies: change in vision or eye discomfort ENMT: Denies: throat pain, odynophagia, nasal discharge or nasal congestion Card: Denies: chest pain, palpitations, edema, swelling of feet/ankles, dyspnea on exertion or orthopnea Resp: Denies: dyspnea, productive cough or non-productive cough GI: Reports: nausea, vomiting and heartburn; Denies: abdominal pain, diarrhea, constipation or hematochezia : Denies: flank pain, difficulty urinating, dysuria or hematuria Musc: Denies: neck pain, back pain or extremity swelling Skin/Breast: Denies: rash or new lesions Neuro: Denies: headache(s), numbness in extremities or weakness in extremities PFS ED PFSH: Medical History H/O traumatic brain injury History of diverticulitis Surgical History H/O hemorrhoidectomy X3 H/O partial cystectomy (~04/20/22) H/O shoulder surgery right H/O sinus surgery H/O vascular surgery 5 on right leg and 2 on left History of ankle surgery right -due to fracture History of cataract surgery bilateral History of colonoscopy with polypectomy 2019 History of esophagogastroduodenoscopy (EGD) 2019 S/P insertion of spinal cord stimulator S/P laparoscopic-assisted sigmoidectomy (~04/20/22) Family History Mother , at age 83 No problems noted. Father , at age 78 Alzheimer's dementia Social History Smoking and tobacco status: never smoked Alcohol intake: never Marital status: Current occupational status: disabled History of recent travel: No Physical Exam Const: COMMON NORMALS: patient oriented x3 and alert GENERAL APPEARANCE: cooperative HENMT: COMMON NORMALS: normocephalic HEAD & SCALP: normocephalic MOUTH: Normal oral and palatal mucosa present and moist mucous membranes abnormal Details: parched THROAT: posterior oropharynx normal and uvula midline Eye: COMMON NORMALS: Equal, round and reactive pupils present and conjunctivae normal CONJUNCTIVA: Yes conjunctivae normal PUPIL: Yes Equal, round and reactive pupils present Neck/C-Spine: COMMON NORMALS: supple GENERAL: Yes normal visual inspection Resp: COMMON NORMALS: normal respiratory effort, No retractions, No use of accessory muscles and clear to auscultation bilaterally AUSCULTATION: clear to auscultation bilaterally Cardio: COMMON NORMALS: regular rate, regular rhythm, S1 normal heart sound present, S2 normal heart sound present, No gallops present (Cardio), No clicks present (Cardio), No murmurs present (Cardio) and Peripheral pulses 2+ throughout RATE: regular rate RHYTHM: regular rhythm HEART SOUNDS: S1 normal heart sound present and S2 normal heart sound present PERIPHERAL PULSES: Peripheral pulses 2+ throughout GI: COMMON NORMALS: Normal to inspection, nondistended, normoactive bowel sounds present, Soft to palpation, non-tender and no masses PALPATION: Yes Soft to palpation : COMMON NORMALS: Yes no CVA tenderness BLADDER/KIDNEY EXAM: Yes no CVA tenderness Back/Pelvis: COMMON NORMALS: no CVA tenderness Extremity: COMMON NORMALS: normal to inspection Neuro: COMMON NORMALS: patient oriented x3 and moves all extremities SENSORIUM/ORIENTATION: Yes alert Skin: GENERAL SKIN EXAM: dry skin Course Vital Signs: Vital signs: Vital Signs Temperature 97.7 F 04/30/22 04:18 Pulse Rate 87 04/30/22 07:02 Respiratory Rate 16 04/30/22 04:18 Blood Pressure 147/80 04/30/22 04:18 Pulse Oximetry 97 04/30/22 04:18 MDM - Nausea/Vomiting/Diarrhea Medical Decision Making Patient is a 77-year-old male comes to the ED with nausea and vomiting. 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 patient was seen here in the ED back on April 25 because he pulled out his Valdez catheter and it needed to be replaced. Nausea and vomiting have been going on now for the past 3 days. Denies any fever or abdominal pain. Vitals are stable patient is afebrile. White blood cell count 26.7, potassium 3.0 and creatinine of 2.1. Lactic 3.1. Chest x-ray shows no acute findings. CT of abdomen pelvis showed some right lower lung pneumonia no other acute findings in the abdomen/pelvis. I discussed patient case with Dr. Carpenter and he agreed that he needs to be admitted to the hospital. Dr. Gonzalezecontacted the hospitalist and he accepted admission of patient. He was started on IV antibiotics here in the ED. Lab Data I reviewed the patient's lab results. : 04/30/22 04:32 04/30/22 04:32 Radiology Impressions Abdomen/Pelvis CT 04/29/22 14:06 IMPRESSION: 1. Multiple dilated bowel loops no bowel obstruction 2. Right hepatic lobe benign cyst. 3. Multiple bilateral renal cyst of varying sizes. 4. Right lower lung pneumonia 5. Subcutaneous emphysema right lower chest and abdomen. 6. Left gluteal electronic device in place. 7. Bilateral iliac artery metallic stents 8. Severe lumbar spine osteoarthritis 9. Left adrenal adenoma, right adrenal not visible. 10. Perirectal postoperative sutures. Chest X-Ray 04/29/22 20:44 IMPRESSION: 1. Stable airspace disease in the right middle and right lower lobes compared with the chest x-ray done earlier on 04/29/2022, consistent with pneumonia. Recommend followup chest imaging to insure resolution of these findings. 2. Stable dilated small bowel loops in the visualized upper abdomen measuring up to 4.4 cm, suspicious for small bowel obstruction or adynamic ileus. 3. Interval placement of an enteric tube with the tip in the body of the stomach. 4. Incidental/nonacute findings are listed in the report. Laboratory Results WBC 26.7 10^3/uL (4.0-10.0) H 04/29/22 13:10 RBC 4.50 10^6/uL (4.1-5.3) 04/29/22 13:10 Hgb 12.9 g/dL (11.7-16.6) 04/29/22 13:10 Hct 38.8 % (42.0-52.0) L 04/29/22 13:10 MCV 86.2 fl (80-94) 04/29/22 13:10 MCH 28.7 pg (28.0-34.0) 04/29/22 13:10 MCHC 33.2 g/dL (30.0-36.0) 04/29/22 13:10 RDW 14.6 % (12.1-15.1) 04/29/22 13:10 Plt Count 502 10^3/cmm (130-400) H 04/29/22 13:10 MPV 9.3 fL (7.4-10.4) 04/29/22 13:10 Neut % (Auto) 95.0 % 04/29/22 13:10 Lymph % (Auto) 2.2 % 04/29/22 13:10 [place] % (Auto) 1.9 % 04/29/22 13:10 Eos % (Auto) 0.0 % 04/29/22 13:10 Baso % (Auto) 0.3 % 04/29/22 13:10 Neut # (Auto) 25.43 10^3/uL (1.8-7.7) H 04/29/22 13:10 Lymph # (Auto) 0.6 10^3/uL (0.8-4.8) L 04/29/22 13:10 [place] # (Auto) 0.5 10^3/uL (0.2-0.9) 04/29/22 13:10 Eos # (Auto) 0.0 10^3/uL (0.0-0.8) 04/29/22 13:10 Baso # (Auto) 0.1 10^3/uL (0.0-0.1) 04/29/22 13:10 Nucleated RBC % (auto) 0 % 04/29/22 13:10 Nucleated RBCs # 0.0 /100WBC 04/29/22 13:10 Sodium 137 mmol/L (136-145) 04/29/22 13:10 Potassium 3.0 mmol/L (3.5-5.1) L 04/29/22 13:10 Chloride 97 mmol/L (98-107) L 04/29/22 13:10 Carbon Dioxide 24 mmol/L (22-29) 04/29/22 13:10 Anion Gap 19.0 (5-19) 04/29/22 13:10 BUN 45 mg/dL (8-23) H 04/29/22 13:10 Creatinine 2.1 mg/dL (0.7-1.2) H 04/29/22 13:10 GFR Calculation Not Reportable 04/29/22 13:10 Glucose 157 mg/dL (65-115) H 04/29/22 13:10 Calculated Osmolality 299 mOsm/kg (285-295) H 04/29/22 13:10 Lactic Acid 3.1 mmol/L (0.5-2.2) H 04/29/22 13:10 Calcium 9.8 mg/dL (8.5-10.5) 04/29/22 13:10 Total Bilirubin 1.3 mg/dL (0.15-1.2) H 04/29/22 13:10 AST 23 U/L (0-40) 04/29/22 13:10 ALT 37 U/L (0-41) 04/29/22 13:10 Alkaline Phosphatase 219 IU/L (40-130) H 04/29/22 13:10 Troponin T Baseline 70 ng/L (0-15) H 04/29/22 13:20 Total Protein 7.4 g/dL (6.6-8.7) 04/29/22 13:10 Albumin 3.9 g/dL (3.5-5.2) 04/29/22 13:10 Globulin 3.5 g/dL (1.3-4.6) 04/29/22 13:10 Lipase 13 U/L (13-60) 04/29/22 13:10 Urine Color Jud (Yellow) 04/29/22 13:32 Urine Appearance Hazy (CLEAR) A 04/29/22 13:32 Urine pH 5 (5-7) 04/29/22 13:32 Ur Specific [place] 1.025 (1.005-1.030) 04/29/22 13:32 Urine Protein 1+ (Negative) H 04/29/22 13:32 Urine Glucose (UA) Norm (Normal) 04/29/22 13:32 Urine Ketones 1+ (Negative) H 04/29/22 13:32 Urine Blood 3+ (Negative) H 04/29/22 13:32 Urine Nitrate Negative (Negative) 04/29/22 13:32 Urine Bilirubin 1+ (Negative) H 04/29/22 13:32 Urine Urobilinogen 1 mg/dL (Negative) H 04/29/22 13:32 Ur Leukocyte Esterase 2+ (Negative) H 04/29/22 13:32 Urine RBC 10-15 /hpf (0-2) H 04/29/22 13:32 Urine WBC 25-40 /hpf (0-5) H 04/29/22 13:32 Ur Squamous Epith Cells None /hpf (0-5) 04/29/22 13:32 Amorphous Sediment Not Reportable 04/29/22 13:32 Urine Bacteria 1+ /hpf (NONE) H 04/29/22 13:32 Urine Yeast 3+ /hpf H 04/29/22 13:32 EKG Data EKG 1: EKG interpretation date: 04/29/22 Interpretation: Sinus rhythm, 78 bpm, no ST segment elevation or depression noted. Discharge Plan Discharge Patient Disposition: Admitted As Inpatient Admit Provider: Tierra Piña Clinical Impression: MARAL (acute kidney injury), Hypokalemia, Pneumonia Condition: Stable Coding Level of Care Code ED Post Exchange Manager for Chg Fwd Exam Comprehensive
[2022-04-29] MEDS: sodium chloride 0.9% 1,000 ML 999 ML IV (13:47)
--- NOTE | 2022-04-29 13:58 | PC.NURSE ---
EKG done at 1350 and shown to ER doctor
[2022-04-29 14:00] LABS: Troponin(5th) Baseline 70 ng/L (0-15)
[2022-04-29 14:00] LABS: Alanine Aminotransferase 37 U/L (0-41); Albumin Level 3.9 g/dL (3.5-5.2); Alkaline Phosphatase 219 IU/L (40-130); Aspartate Amino Transferase 23 U/L (0-40); Blood Urea Nitrogen 45 mg/dL (8-23); Calcium 9.8 mg/dL (8.5-10.5); Carbon Dioxide 24 mmol/L (22-29); Chloride 97 mmol/L (98-107); Globulin 3.5 g/dL (1.3-4.6); Glucose 157 mg/dL (65-115); Lipase 13 U/L (13-60); Osmolality Calculated 299 mOsm/kg (285-295); Sodium 137 mmol/L (136-145); Total Bilirubin 1.3 mg/dL (0.15-1.2); Total Protein 7.4 g/dL (6.6-8.7)
[2022-04-29 14:05] LABS: Blood Urine 3+ (Negative); Glucose Urine UA Norm (Normal); Ketones Urine 1+ (Negative); Protein Urine 1+ (Negative); Specific Gravity, Urine 1.025 (1.005-1.030); Urine Appearance Hazy (CLEAR); Urine Color Amber (Yellow); pH Urine 5 (5-7)
[2022-04-29 14:06] LABS: Add Urine Culture? Yes; Add Urine Microscopic? YES; Bacteria Urine 1+ /hpf; Bilirubin Urine 1+ (Negative); Leukocyte Esterase Urine 2+ (Negative); Nitrate Urine Negative (Negative); Urobilinogen Urine 1 mg/dL (Negative); WBC Urine 25-40 /hpf (0-5)
--- NOTE | 2022-04-29 14:06 | CTR_ITS ---
PROCEDURE INFORMATION: Exam: CT Abdomen And Pelvis Without Contrast Exam date and time: 04/29/2022 2:26 PM Age: 77 years old Clinical indication: Abdominal pain; Generalized; Prior surgery; Surgery date: <1 month; Surgery type: Colon & bladder; Additional info: N/v, high wbc approx 9 days post op TECHNIQUE: Imaging protocol: Computed tomography of the abdomen and pelvis without contrast. Radiation optimization: All CT scans at this facility use at least one of these dose optimization techniques: automated exposure control; mA and/or kV adjustment per patient size (includes targeted exams where dose is matched to clinical indication); or iterative reconstruction. COMPARISON: CT abdomen pelvis w con* [id number] 04/05/2022 12:14 AM RADIATION DOSE METRICS: Total DLP (mGy-cm): 975.91 FINDINGS: Lungs: Chest: Parenchymal densities seen in the right lower lobe consistent with pneumonia. Liver: Normal. No mass. There is an 8 mm cyst right hepatic lobe Gallbladder and bile ducts: Normal. No calcified stones. No ductal dilation. Pancreas: PICC atrophic No ductal dilation. Spleen: Normal. No splenomegaly. Adrenal glands: Left adrenal mass is seen measuring 18 mm with decreased density. This finding may represent a adrenal adenoma. A right adrenal is not visible Kidneys and ureters: Multiple bilateral benign renal cyst. No hydronephrosis. Stomach and bowel: Multiple dilated small bowel and colonic loops are seen. There is no evidence of bowel obstruction. No mucosal thickening. New lines there is a fluid-filled structure in the right anterior pelvis displacing the urinary bladder this finding is thought to represent a bowel loop Appendix: No evidence of appendicitis. Intraperitoneal space: Unremarkable. No free air. No significant fluid collection. Vasculature: A metallic vascular stent is present in the iliac arteries. No abdominal aortic aneurysm. Lymph nodes: Unremarkable. No enlarged lymph nodes. Urinary bladder: Unremarkable as visualized. Reproductive: Unremarkable as visualized. Bones/joints: Severe lumbar spine osteoarthritis No acute fracture. Soft tissues: Subcutaneous emphysema is seen in the right anterior and lateral chest and upper abdomen. There is an electronic device in the left gluteal tissues. Postoperative sutures are seen in the rectum. CT/CT abdomen pelvis wo con [id number] IMPRESSION: 1. Multiple dilated bowel loops no bowel obstruction 2. Right hepatic lobe benign cyst. 3. Multiple bilateral renal cyst of varying sizes. 4. Right lower lung pneumonia 5. Subcutaneous emphysema right lower chest and abdomen. 6. Left gluteal electronic device in place. 7. Bilateral iliac artery metallic stents 8. Severe lumbar spine osteoarthritis 9. Left adrenal adenoma, right adrenal not visible. 10. Perirectal postoperative sutures.
[2022-04-29 14:34] LABS: Lactic Sepsis W/Reflex 3.1 mmol/L (0.5-2.2)
[2022-04-29] MEDS: potassium chloride premix 100 ML 50 MEQ IV (15:02)
--- NOTE | 2022-04-29 15:21 | ECG_ITS ---
[facility] Test Date: 2022-04-29 Pat Name: Eder Murphy Department: Room: Gender: Male [employer] Developer: : 1945 Requested By: Cyrus Holliday Order Number: [id number] Melida MD: Niecy Rios M.D. Measurements Intervals [place] Rate: 71 P: 74 LA: 151 QRS: -19 QRSD: 102 T: -13 QT: 402 QTc: 439 Interpretive Statements SINUS RHYTHM POSSIBLE ANTERIOR MYOCARDIAL INFARCTION , PROBABLY OLD [30 ms Q WAVE IN V3/V4, OR R < 0.2 mV IN V4] Compared to ECG 04/29/2022 12:46:02 Sinus arrhythmia no longer present Myocardial infarct finding still present Electronically Signed On 04-30-2022 21:33:15 CDT by Niecy Rios M.D. [id number]
[2022-04-29] MEDS: piperacillin-tazobactam 3.375 GM in sodium chloride 0.9% (plus) 50 ML IV ×2 (15:30→23:51)
[2022-04-29 15:36] VITALS: PULSE 91; RESP 18; O2SAT 97
--- NOTE | 2022-04-29 15:36 | PC.NURSE ---
EKG done at 1528 and shown to ER doctor.
[2022-04-29 15:37] LABS: Reflex Lactate Order REFLEX LACTIC ORDERD
--- NOTE | 2022-04-29 15:44 | PC.PHAR ---
[facility]22 at 1344. Pt verified medications.
[2022-04-29] MEDS: vancomycin 1,000 MG in sodium chloride 0.9% 250 ML 250 MG IV (16:10)
[2022-04-29 16:12] LABS: Troponin 5 2HR 56.89 ng/L (0-15)
[2022-04-29 16:14] LABS: Troponin 5 2HR Delta -13.11 ABS# (0-10)
[2022-04-29 16:47] VITALS: BMI 24.0
[2022-04-29 17:20] LABS: Lactic Acid level (Lactate) 1.3 mmol/L (0.5-2.2)
--- NOTE | 2022-04-29 18:06 | PM.HP ---
Providers/Chief Complaint Admitting Physician: iTerra Piña MD Chief Complaint: n/v History of Present Illness After Kandy Murphy is a 77 year old male with recurrent UTIs for 3 months and was diagnosed with colovesical fistula secondary to diverticulosis.? Patient underwent laparoscopic sigmoid colectomy, partial cystectomy and colonoscopy 04/20 he was discharged after 2 units PRBC transfusion presented today with recurrent nausea and vomiting. Patient stating that he started vomiting 3 days ago, every time he eats he is vomiting he tries to avoid eating now, he is endorsing dehydration, he has not noticed any fever, he is endorsing GERD acid reflux however no chest pain or worsening of shortness of breath at baseline. Today he was noticing serosanguineous discharge from his right lower quadrant wound that soaked the dressing. His last bowel movement was yesterday which was liquid in consistency. In the ER he was diagnosed with severe dehydration, he is not tachycardic or febrile, lactic acid is high with endorgan damage acute on chronic kidney disease troponin trending down Review of Systems Const: Reports: fever(s) Eyes: Denies: change in vision ENMT: Denies: throat pain Card: Denies: chest pain Resp: Denies: dyspnea GI: Reports: abdominal pain, nausea, vomiting and diarrhea : Denies: flank pain Musc: Denies: neck pain Skin/Breast: Reports: surgical incision Neuro: Denies: headache(s) Psych: Denies: anxiety Endo: Denies: polyuria Juan F/Lymph: Denies: easy bruising All/Imm: Denies: urticaria Medications/Allergies Home Medications Medication Instructions Recorded Confirmed Last Taken Type acetaminophen 500 mg tablet 500 mg PO Q6H PRN #24 tab 06/18/21 04/29/22 Unknown Rx lidocaine 5 % topical patch 1 patch TOPICAL DAILY PRN #20 ea 06/18/21 04/29/22 Unknown Rx hydrocodone 5 mg-acetaminophen 325 1 tab PO Q6H PRN #14 tab 04/10/22 04/29/22 04/29/22 Rx mg tablet ondansetron 4 mg disintegrating 4 mg PO Q6H PRN #14 tab 04/10/22 04/29/22 04/29/22 Rx tablet alendronate 70 mg tablet 70 mg PO Q7D tab 06/12/0204/29/22 04/25/22 History aspirin 81 mg tablet,delayed 81 mg PO DAILY 04/11/22 04/29/22 04/29/22 History release cetirizine 10 mg tablet (All Day 10 mg PO DAILY PRN 04/11/22 04/29/22 04/19/22 History Allergy (cetirizine)) clopidogrel 75 mg tablet 75 mg PO DAILY 04/11/22 04/29/22 04/29/22 History cyanocobalamin (vitamin B-12) 1,000 mcg PO DAILY 04/11/22 04/29/22 04/29/22 History 1,000 mcg capsule ferrous sulfate 325 mg (65 mg 325 mg PO DAILY 04/11/22 04/29/22 04/29/22 History iron) tablet (FeroSul) hydrochlorothiazide 12.5 mg tablet 12.5 mg PO DAILY 04/11/22 04/29/22 04/29/22 History lamotrigine 100 mg disintegrating 100 mg PO BEDTIME 04/11/22 04/29/22 04/28/22 History tablet (Lamictal ODT) metoprolol tartrate 100 mg tablet 100 mg PO BID 04/11/22 04/29/22 04/29/22 History nortriptyline 10 mg capsule 20 mg PO BEDTIME cap 04/11/22 04/29/22 04/28/22 History sucralfate 1 gram tablet 1 g PO QID tab 04/11/22 04/29/22 04/29/22 History tamsulosin 0.4 mg capsule 0.4 mg PO DAILY 04/11/22 04/29/22 04/29/22 History topiramate 50 mg tablet 50 mg PO DAILY tab 04/11/22 04/29/22 04/29/22 History vitamins A,C,M-bofz-qlovcr 14,320 1 cap PO BID 04/11/22 04/29/22 04/29/22 History unit-226 mg-200 unit capsule (ICaps AREDS) sennosides 8.6 mg-docusate sodium 1 tab-cap PO BID #30 tab 04/24/22 04/29/22 04/29/22 Rx 50 mg tablet (Senna with Docusate Sodium) Allergies Allergy/AdvReac Type Severity Reaction Status Date / Time oxycodone Allergy ADR-Halluci Verified 04/19/22 13:06 nating pregabalin Allergy ALGY-Hives Verified 04/19/22 13:05 Toidbkx-TWA-GiN Reductase Allergy ADR-Cramping Verified 04/19/22 13:05 Inhibitor of the Muscles PFSH Acute PFSH: Medical History H/O traumatic brain injury History of diverticulitis Surgical History H/O hemorrhoidectomy X3 H/O partial cystectomy (~04/20/22) H/O shoulder surgery right H/O sinus surgery H/O vascular surgery 5 on right leg and 2 on left History of ankle surgery right -due to fracture History of cataract surgery bilateral History of colonoscopy with polypectomy 2019 History of esophagogastroduodenoscopy (EGD) 2019 S/P insertion of spinal cord stimulator S/P laparoscopic-assisted sigmoidectomy (~04/20/22) Family History Mother , at age 83 No problems noted. Father , at age 78 Alzheimer's dementia Social History Smoking and tobacco status: never smoked Alcohol intake: never Marital status: Current occupational status: disabled History of recent travel: No Vitals/I&O/Wt Last Vital Signs Temp 96.6 F L 04/29/22 12:49 Pulse 91 04/29/22 15:36 Resp 18 04/29/22 15:36 BP 112/77 04/29/22 12:49 Pulse Ox 97 04/29/22 15:36 04/29/22 04/29/22 04/29/22 06:59 14:59 22:59 Intake Total 1073.333 / 1073.333 Balance 1073.333 / 1073.333 Weight last 48 hrs Weight 65.431 kg Weight 66.678 kg Physical Exam Narrative: Pleasant cooperative male Clinically looks dehydrated Does not have septic appearance Afebrile hemodynamically stable Signs of dehydration present EOMI, PERRLA Nonfocal neuro exam Saturating well on room air Right lower quadrant dressing is soaked with serosanguineous discharge Abdomen is slightly tender around right lower quadrant Abdominal distention noted Lower extremity no edema Valdez catheter draining concentrated urine with some sediments Data : 04/29/22 13:10 04/29/22 13:10 Micro: Microbiology 04/29/22 13:24 Blood Culture - Preliminary Blood SPECIMEN COLLECTED 04/29/22 13:20 Blood Culture - Preliminary Blood SPECIMEN COLLECTED A&P Assessment and plan (1) Dehydration: Status: Acute (2) Hypokalemia: Status: Acute (3) Hypovolemia: Status: Acute (4) Sepsis: Status: Acute Plan Hypovolemic lactic acidemia Patient has been vomiting since last 3 days My concern for sepsis is also high considering leukocytosis and endorgan damage with high lactic acid However no fever or tachycardia or tachypnea Blood pressure is stable I would empirically cover him with broad-spectrum antibiotics renally dosed I will give him another liter bolus according to his BMI Blood cultures have been taken in the ER, he has been given 1 L in the ER, repeat lactic acid improved with IV fluid hydration Leukocytosis could be leukemoid reaction with hemoconcentration High platelet count would support this differential Rule out sepsis Dilated small bowel loop I will place NG tube, keep him on D5 LR N.p.o. Fluid collection right lower quadrant seems to be related related to presence of bowel Serial abdominal exam and KUB Serosanguineous discharge from right lower quadrant surgical site Patient also has right flank hematoma Will repeat CAT scan in the morning H&H has not dropped significantly but this could be falsely high due to concentration due to dehydration Acute on chronic disease due to dehydration anticipating pulmonary IV fluid hydration History of recurrent UTI Pyuria Patient is full code N.p.o. Hypokalemia: Repleted Attestations Medical Necessity Statement*: Anticipating more than 2 midnights for management of hypovolemic shock, recurrent emesis, Time Spent in Patient Care: 40 Coding Level of Care Code Acute Steel Tier for [facility] Diagnoses Dehydration E86.0 Hypokalemia E87.6 Hypovolemia E86.1 Sepsis A41.9
[2022-04-29 18:25] VITALS: PULSE 88; RESP 16; O2SAT 92
--- NOTE | 2022-04-29 19:21 | ECG_ITS ---
[facility] Test Date: 2022-04-29 Pat Name: Eder Murphy Department: Room: Gender: Male Pricer: : 1945 Requested By: Cyrus Holliday Order Number: [id number] Melida MD: Niecy Rios M.D. Measurements Intervals [place] Rate: 78 P: -1 VT: 147 QRS: -18 QRSD: 102 T: -5 QT: 398 QTc: 456 Interpretive Statements SINUS RHYTHM WITH SINUS ARRHYTHMIA MINIMAL VOLTAGE CRITERIA FOR LVH, CONSIDER NORMAL VARIANT [MEETS CRITERIA IN ONE OF: R(aVL), S(V1), R(V5), R(V5/V6)+S(V1)] POSSIBLE ANTERIOR MYOCARDIAL INFARCTION , PROBABLY OLD [30 ms Q WAVE IN V3/V4, OR R < 0.2 mV IN V4] WARNING: DATA QUALITY MAY AFFECT INTERPRETATION Compared to ECG 04/20/2022 08:14:17 Sinus bradycardia no longer present Myocardial infarct finding still present Electronically Signed On 04-30-2022 21:33:45 CDT by Niecy Rios M.D. [id number]
[2022-04-29 19:31] VITALS: BP 160/83; PULSE 86; RESP 18; TEMP 37.4; O2SAT 92
[2022-04-29] MEDS: lactated ringers 1,000 ML 999 ML IV (19:47)
[2022-04-29 19:59] VITALS: PULSE 87; RESP 17; O2SAT 92
[2022-04-29 20:21] LABS: Procalcitonin 1.51 ng/mL (0-0.5)
--- NOTE | 2022-04-29 20:44 | XRR_ITS ---
PROCEDURE INFORMATION: Exam: XR Chest Exam date and time: 04/29/2022 8:57 PM Age: 77 years old Clinical indication: Other: Nausea&vomiting; Additional info: Ng placement TECHNIQUE: Imaging protocol: Radiologic exam of the chest. Views: 1 view. COMPARISON: 1. CR (CHEST, ) 04/29/2022 1:[address] abdomen pelvis wo con [id number] 04/29/2022 2:26 PM FINDINGS: Tubes, catheters and devices: Interval placement of an enteric tube with the tip in the body of the stomach. Lungs: Stable airspace disease in the right middle and right lower lobes compared with the chest x-ray done earlier on 04/29/2022, consistent with pneumonia. Pleural spaces: No pleural effusion. No pneumothorax. Heart/Mediastinum: Stable moderate enlargement of the cardiac silhouette. Mediastinal contours are unremarkable. Vasculature: Stable vascular calcifications in the aorta. Stable tortuosity of the aorta. Bones/joints: Unremarkable for age. Gastrointestinal tract: Stable dilated small bowel loops in the visualized upper abdomen measuring up to 4.4 cm, suspicious for small bowel obstruction or adynamic ileus. XR/XR chest 1V portable [id number] IMPRESSION: 1. Stable airspace disease in the right middle and right lower lobes compared with the chest x-ray done earlier on 04/29/2022, consistent with pneumonia. Recommend followup chest imaging to insure resolution of these findings. 2. Stable dilated small bowel loops in the visualized upper abdomen measuring up to 4.4 cm, suspicious for small bowel obstruction or adynamic ileus. 3. Interval placement of an enteric tube with the tip in the body of the stomach. 4. Incidental/nonacute findings are listed in the report.
[2022-04-29] MEDS: dextrose 5%-lactated ringers 1,000 ML 75 ML IV (20:59)
[2022-04-29] MEDS: topiramate 25 mg Tablet 50 MG PO (22:26)
[2022-04-29] MEDS: nortriptyline 10 mg Capsule 20 MG PO (22:27)
[2022-04-29] MEDS: linezolid premix 600 MG/300 ML PREMIX 300 MG IV (22:30)
[2022-04-29 23:39] VITALS: BP 160/82; PULSE 89; RESP 18; TEMP 36.9; O2SAT 99
[2022-04-30] VITALS (9 sets, daily range): BP systolic 147–174; BP diastolic 74–84; PULSE 77–106; RESP 13–19; TEMP 36.3–37.1; O2SAT 93–97
--- NOTE | 2022-04-30 04:00 | XR_ITS ---
WS: [id number] Exam: XR KUB portable [id number] Date/Time of Exam: 04/30/2022 4:00 AM Reason For Exam: RLQ fluid collection, ileus There is significant small bowel dilatation which may indicate acute small bowel obstruction. There i s also gas in the large bowel and stomach. No free air noted. An enteric tube is looped in the body t he stomach. Bilateral common iliac artery stents are noted. There are also stents noted in the left f emoral region. A neurostimulator pack is seen in the region of the left abdomen with the leads extend ing cephalad. No sign of organ enlargement. Moderately advanced degenerative change of the lumbosacra l spine. XR/XR KUB portable [id number] IMPRESSION: 1. Marked dilatation of small bowel loops in the mid abdomen. Small bowel obstr uction is not excluded. There is also some gas in the colon and stomach.
[2022-04-30 04:45] LABS: Basophils % 0.3 %; Eosinophils % 0.1 %; Hematocrit 29.3 % (42.0-52.0); Hemoglobin 10.1 g/dL (11.7-16.6); Lymphocytes # 1.1 10^3/uL (0.8-4.8); Lymphocytes % 6.7 %; Mean Corpuscular HGB Conc 34.5 g/dL (30.0-36.0); Mean Corpuscular Hemoglobin 28.8 pg (28.0-34.0); Mean Corpuscular Volume 83.5 fl (80-94); Mean Platelet Volume 9.2 fL (7.4-10.4); Monocytes # 0.6 10^3/uL (0.2-0.9); Monocytes % 3.8 %; Neutrophils # 14.09 10^3/uL (1.8-7.7); Neutrophils % 88.5 %; Nucleated Red Blood Cells % 0 %; Platelet Count 416 10^3/cmm (130-400); Red Blood Count 3.51 10^6/uL (4.1-5.3); Red Cell Distribution Width 14.4 % (12.1-15.1); White Blood Count 15.9 10^3/uL (4.0-10.0)
[2022-04-30 05:10] LABS: Anion Gap 14.6 (5-19); Blood Urea Nitrogen 44 mg/dL (8-23); C Reactive Protein 222.4 mg/L (0.0-4.9); Calcium 8.5 mg/dL (8.5-10.5); Carbon Dioxide 25 mmol/L (22-29); Chloride 101 mmol/L (98-107); Glucose 127 mg/dL (65-115); Magnesium 1.8 mg/dL (1.7-2.3); Osmolality Calculated 299 mOsm/kg (285-295); Sodium 138 mmol/L (136-145)
[2022-04-30 05:12] LABS: Lactic Sepsis W/Reflex 1.1 mmol/L (0.5-2.2)
[2022-04-30 05:21] LABS: Potassium 2.6 mmol/L (3.5-5.1)
[2022-04-30] MEDS: piperacillin-tazobactam 3.375 GM in sodium chloride 0.9% (plus) 50 ML IV ×3 (06:29→23:04)
[2022-04-30] MEDS: potassium chloride premix 40 MEQ/100 ML PREMIX 25 MEQ IV (07:38)
[2022-04-30] MEDS: metoprolol tartrate 50 mg Tablet 100 MG PO ×2 (09:04→17:05)
[2022-04-30] MEDS: tamsulosin 0.4 mg Capsule PO (09:04)
--- NOTE | 2022-04-30 10:16 | PM.PN ---
Subjective Subjective: NG tube was placed yesterday KUB showing ileus 4.4 cm dilation No signs of obstruction Patient had 1 bowel movement this morning 400 mL of bilious content in the container NG to suction No significant drop of hemoglobin Creatinine and leukocytosis improved with IV fluid hydration Afebrile Procalcitonin noted Vitals/I&O/Wt Last Vital Signs Temp 98.7 F 04/30/22 07:33 Pulse 81 04/30/22 08:08 Resp 19 H 04/30/22 08:08 BP 157/74 04/30/22 07:33 Pulse Ox 93 04/30/22 08:08 04/29/22 04/30/22 04/30/22 22:59 06:59 14:59 Intake Total 2323.333 / 2323.333 350 / 2673.333 Output Total 350 / 350 1575 / 1925 Balance 1972.333 / 1973.333 -1225 / 748.333 Weight last 48 hrs Weight 65.431 kg Weight 66.678 kg Physical Exam Narrative: Patient looks dehydrated Nonfocal neuro exam Abdomen is slightly tender in right lower quadrant, it is soft no signs of rigidity or guarding NG to suction Patient looks dehydrated Currently doing well on room air Muscle mass loss Malnourished Data : 04/30/22 04:32 04/30/22 04:32 Micro: Microbiology 04/29/22 13:24 Blood Culture - Preliminary Blood SPECIMEN COLLECTED 04/29/22 13:20 Blood Culture - Preliminary Blood SPECIMEN COLLECTED A&P Assessment and plan (1) MARAL (acute kidney injury): Status: Acute (2) Pneumonia: Status: Acute Qualifiers: Laterality: right Lung location: lower lobe of lung Pneumonia type: due to unspecified organism Qualified Code(s): J18.9 - Pneumonia, unspecified organism (3) Sepsis: Status: Acute (4) Hypovolemia: Status: Acute (5) Hypokalemia: Status: Acute (6) Dehydration: Status: Acute (7) H/O traumatic brain injury: Status: Acute (8) History of recurrent UTI (urinary tract infection): Status: Acute Plan Ileus Start PPN today, patient has not eaten in the last 7 days Significant weight loss Patient has ileus, which will tie time to resolve Seen abdominal exam and KUB Significant dilation about 4 cm He had 1 bowel movement today High anion gap acidosis due to hypovolemic lactic acidemia Procalcitonin is high He has been afebrile I do believe his symptoms were related to dehydration and hypovolemia I would keep him on empirical antibiotic coverage for now After reinitiate PPN we will discontinue D5 LR Significant drop of white count, leukocytosis improving, sepsis to be ruled out MARAL secondary to dehydration: Improving as well Electrolytes: Replenished Patient is full code Family updated BPH: Continue tamsulosin Patient does get sundowning and delirium episode at night wants to be notified, her phone number is in the chart Attestations Medical Necessity Statement*: Continue medical management Time Spent in Patient Care: 30 Coding Level of Care Code Acute Director Medical Science for [facility] Fwd Diagnoses MARAL (acute kidney injury) N17.9 Pneumonia J18.9 Laterality: right Lung location: lower lobe of lung Pneumonia type: due to unspecified organism Sepsis A41.9 Hypovolemia E86.1 Hypokalemia E87.6 Dehydration E86.0 H/O traumatic brain injury Z87.820 History of recurrent UTI (urinary tract infection) Z87.440
[2022-04-30] MEDS: dextrose 5%-lactated ringers 1,000 ML 75 ML IV (10:22)
[2022-04-30] MEDS: linezolid premix 600 MG/300 ML PREMIX 300 MG IV ×2 (10:47→21:57)
--- NOTE | 2022-04-30 11:07 | PC.CHAP ---
Pastoral Care Encounter/Spiritual Assessment Type of Contact [] Declined stock selector visit [] Patient/Family/Request visit [] Outpatient visit [] Follow-up visit [] Physician referral [] Code/Alert [] Routine visit [] Staff referral [] Actively dying [] Patient sleeping [] Family support [] [] Out of room [] Palliative care [] [] Receiving care in room [] Pre-surgical visit [] Trauma [] Long length of stay [] ICU visit [] Other: Relational/Emotional Strength [] Patient feels connected with others/family/visitors/staff [] Distress [] Loneliness/isolation [] Abandonment Spirituality of Patient [] Person of Katlyn [] Attends Jew of their Katlyn [] Believes in Prayer [] Reads Bible or Yazidism materials [] There are Spiritual issues to be addressed Mechanic And Welder Interventions [] Prayer [] Active listening [] Non-anxious presence [] Spiritual/emotional support [] Crisis/trauma care [] Spiritual counseling [] Bereavement support [] Provided bereavement packet [] Provided Bible/devotional materials [] Provided toy/stuffed animal, coloring book to patient or family member [] Provided Communion [] Anointing/[place] [] Salvation [] Completed spiritual assessment [] Other: Impact on Illness or Injury [] Angry [] Fearful [] Anxious [] Often cries [] Exhaustion [] Unable to work [] Unable to attend lutheran [] Unable to walk/stand [] Unable to read [] Unable to drive [] Unable to eat/drink [] Unable to sleep [] Unable to be with family [] Patient intubated [] Other: Summary Time spent with patient Pastoral Care Encounter/Spiritual Assessment Type of Contact [] Declined stock selector visit [] Patient/Family/Request visit [] Outpatient visit [] Follow-up visit [] Physician referral [] Code/Alert [x] Routine visit [] Staff referral [] Actively dying [] Patient sleeping [] Family support [] [] Out of room [] Palliative care [] [] Receiving care in room [] Pre-surgical visit [] Trauma [] Long length of stay [] ICU visit [] Other: Relational/Emotional Strength [x] Patient feels connected with others/family/visitors/staff [] Distress [] Loneliness/isolation [] Abandonment Spirituality of Patient [x] Person of Katlyn [x] Attends Jew of their Katlyn [x] Believes in Prayer [] Reads Bible or Yazidism materials [] There are Spiritual issues to be addressed Mechanic And Welder Interventions [x] Prayer [x] Active listening [x] Non-anxious presence [x] Spiritual/emotional support [] Crisis/trauma care [] Spiritual counseling [] Bereavement support [] Provided bereavement packet [] Provided Bible/devotional materials [] Provided toy/stuffed animal, coloring book to patient or family member [] Provided Communion [] Anointing/[place] [] Salvation [x] Completed spiritual assessment [] Other: Impact on Illness or Injury [] Angry [] Fearful [] Anxious [] Often cries [] Exhaustion [] Unable to work [] Unable to attend lutheran [] Unable to walk/stand [] Unable to read [] Unable to drive [] Unable to eat/drink [] Unable to sleep [] Unable to be with family [] Patient intubated [] Other: Summary Time spent with patient 15 min
--- NOTE | 2022-04-30 11:46 | PC.NUTR ---
Consult for PPN received. Recommend PPN starting at @ 13 mls/hr increasing 10 mls Q8H until infusing at 83 mls/hr along with 25 grams/125 mls fat emulsion, standard electrolytes, and multivitamins 10 mls/day. Details in RD assessment.
[2022-04-30] MEDS: lidocaine 1% 5 ML in potassium chloride premix 100 ML 50 ML IV (12:37)
[2022-04-30] MEDS: morphine 4 mg/mL SDV 1 mL IVP (13:21)
--- NOTE | 2022-04-30 14:09 | PC.NURSE ---
PPN started at 14:00
[2022-04-30] MEDS: nortriptyline 10 mg Capsule 20 MG PO (21:57)
[2022-04-30] MEDS: topiramate 25 mg Tablet 50 MG PO (21:57)
[2022-05-01] VITALS (10 sets, daily range): BP systolic 138–168; BP diastolic 71–96; PULSE 65–104; RESP 12–18; TEMP 36.4–36.8; O2SAT 93–97
--- NOTE | 2022-05-01 02:16 | XRR_ITS ---
PROCEDURE INFORMATION: Exam: XR Chest Exam date and time: 05/01/2022 3:31 AM Age: 77 years old Clinical indication: Device placement; Additional info: Ng tube placement/insertion TECHNIQUE: Imaging protocol: Radiologic exam of the chest. Views: 1 view. COMPARISON: CR (CHEST, ) 04/29/2022 8:57 PM FINDINGS: Tubes, catheters and devices: The distal tip of the enteric tube projects below the level of the diaphragm in the region of the proximal stomach. If this enteric tube has a proximal side hole, it is not well visualized on this exam. Lungs: Improved aeration in the right lower lung compared to prior exam. Minimal persistent consolidation in the medial right lung base. Pleural spaces: No pneumothorax. No pleural effusion. Heart/Mediastinum: The cardiomediastinal silhouette is within normal limits. Bones/joints: Unremarkable. XR/XR chest 1V portable [id number] IMPRESSION: The distal tip of the enteric tube projects below the level of the diaphragm in the region of the proximal stomach. If this enteric tube has a proximal side hole, it is not well visualized on this exam. Consider advancement by approximately 5 to 10 cm.
--- NOTE | 2022-05-01 04:00 | XR_ITS ---
WS: [id number] Exam: XR KUB portable [id number] Date/Time of Exam: 05/01/2022 4:00 AM Reason For Exam: ileus Comparison 04/30/2022. There is dilatation of multiple small bowel loops with mucosal edema within the central abdomen. Ther e is less dilatation than noted on the last exam. No free air noted. Organ margins are obscured. Dege nerative changes of lumbar spine. Bilateral common iliac artery stents are again noted. Neurostimulat or in the left abdomen with the leads extending cephalad. An enteric tube barely enters the stomach. The side-port of the tube is probably in the lower esophagus. XR/XR KUB portable [id number] IMPRESSION: 1. Less small bowel dilatation than noted previously. There appears to be mucos al edema of the small bowel. Partial or incomplete obstruction not excluded. 2. Enteric tube in place. The side-port of the tube appears to end in the lower esophagus. The tube could be advanced another 10 cm for optimal position. 3. No sign of free air. Additional chronic findings as detailed above.
--- NOTE | 2022-05-01 04:49 | PC.NURSE ---
Patient pulled NG out by accident. New NG tube placed to left nare. Chest x-ray taken. Dr. Glover verified NG placement. Patient hooked back to suction.
[2022-05-01 05:58] LABS: C Reactive Protein 149.6 mg/L (0.0-4.9)
[2022-05-01 06:04] LABS: Procalcitonin 0.83 ng/mL (0-0.5)
--- NOTE | 2022-05-01 06:28 | PC.NURSE ---
NG advanced 10 cm per x-ray.
[2022-05-01] MEDS: piperacillin-tazobactam 3.375 GM in sodium chloride 0.9% (plus) 50 ML IV ×2 (08:28→15:29)
[2022-05-01] MEDS: metoprolol tartrate 50 mg Tablet 100 MG PO ×2 (09:41→17:32)
[2022-05-01] MEDS: tamsulosin 0.4 mg Capsule PO (09:41)
[2022-05-01] MEDS: linezolid premix 600 MG/300 ML PREMIX 300 MG IV (10:18)
--- NOTE | 2022-05-01 11:16 | PM.PN ---
Subjective Subjective: CT panel negative Patient pulled his NG tube twice KUB showing improvement in gaseous dilation of small bowel After removal of NG tube he was not vomiting, no nausea Hemodynamically stable I requested nurse to give him mag citrate, in case of any nausea or vomiting she will update me, holding off on NG tube placement Continue PPN, Another bowel movement today patient stating that he had several small bowel movements yesterday, Stools are well formed Vitals/I&O/Wt Last Vital Signs Temp 98.0 F 05/01/22 08:00 Pulse 82 05/01/22 09:46 Resp 16 05/01/22 09:46 BP 163/96 05/01/22 08:00 Pulse Ox 97 05/01/22 09:46 04/30/22 05/01/22 05/01/22 22:59 06:59 14:59 Intake Total 50 / 1828.75 588.833 / 2417.583 Output Total 700 / 700 825 / 1525 Balance -650 / 1128.75 -236.167 / 892.583 Weight last 48 hrs Weight 65.431 kg Weight 66.678 kg Physical Exam Narrative: Patient is awake and alert NG tube was removed by the patient accidentally Abdomen is soft Less distended Bowel sound present No drainage from right lower quadrant anymore petechiae of right flank area improving EOMI, PERRLA Nonfocal neuro exam Saturating well on room air Data : 04/30/22 04:32 04/30/22 04:32 Micro: Microbiology 04/29/22 13:32 Urine Culture - Preliminary Urine,Clean Catch Yeast 04/30/22 11:30 Enteric Pathogens (PCR) - Final Stool Routine Collection 04/30/22 11:30 C.difficile Toxin B Gene (PCR) - Final Stool Routine Collection 04/30/22 11:30 Occult Blood (FIT) - Final Stool Routine Collection 04/29/22 13:24 Blood Culture - Preliminary Blood NEGATIVE TO DATE 04/29/22 13:20 Blood Culture - Preliminary Blood NEGATIVE TO DATE 04/30/22 00:00 Legionella Urinary Antigen - Final Urine Catheterized 04/30/22 00:00 Bacterial Antigens - Final Urine,Voided A&P Assessment and plan (1) MARAL (acute kidney injury): Status: Acute (2) Pneumonia: Status: Acute Qualifiers: Laterality: right Lung location: lower lobe of lung Pneumonia type: due to unspecified organism Qualified Code(s): J18.9 - Pneumonia, unspecified organism (3) Sepsis: Status: Acute (4) Hypovolemia: Status: Acute (5) Hypokalemia: Status: Acute (6) Dehydration: Status: Acute (7) Ileus: Status: Acute Plan Ileus Improving Patient accidentally removed his NG tube twice Currently abdomen is soft nontender KUB showing signs of improvement I will give him 1 dose of mag citrate, he is having bowel movement every day If he becomes nauseous or experiences another episode of emesis will place another NG tube Continue PPN I will keep him on clear liquid now Only 10 mL was suctioned overnight in the container Sepsis related to pneumonia Is now requiring oxygen Afebrile De-escalate antibiotics to Zosyn only, discontinue linezolid Hypovolemic signs improved Continue PPI Clear liquid diet for now Full code He has been experiencing multiple normal looking bowel movement every day BPH: Continue tamsulosin with underlying dementia nortriptyline at bedtime Hypertension: Currently on metoprolol and lisinopril MARAL improved with IV fluid hydration Attestations Medical Necessity Statement*: If patient is clinically doing well in next 98 hours I will be able to discharge him back home on Time Spent in Patient Care: 30 Coding Level of Care Code Acute Acoustic Intelligence Specialist for [facility] Diagnoses MARAL (acute kidney injury) N17.9 Pneumonia J18.9 Laterality: right Lung location: lower lobe of lung Pneumonia type: due to unspecified organism Sepsis A41.9 Hypovolemia E86.1 Hypokalemia E87.6 Dehydration E86.0 Ileus K56.7
[2022-05-01] MEDS: magnesium citrate Btl 296 mL 150 ML PO (11:35)
[2022-05-01] MEDS: amlodipine 10 mg Tablet PO (11:35)
[2022-05-01] MEDS: lisinopril 10 mg Tablet PO (11:35)
[2022-05-01] MEDS: nortriptyline 10 mg Capsule 20 MG PO (20:44)
[2022-05-01] MEDS: topiramate 25 mg Tablet 50 MG PO (20:45)
[2022-05-02] VITALS (11 sets, daily range): BP systolic 102–150; BP diastolic 62–82; PULSE 68–85; RESP 16–20; TEMP 36.4–36.9; O2SAT 90–98
[2022-05-02] MEDS: piperacillin-tazobactam 3.375 GM in sodium chloride 0.9% (plus) 50 ML IV (00:31)
--- NOTE | 2022-05-02 00:33 | PC.NURSE ---
TPN running at 40 ml/hr upon my arrival on shift.
--- NOTE | 2022-05-02 02:04 | PC.NURSE ---
TPN bag and tubing changed at this time.
--- NOTE | 2022-05-02 04:00 | XR_ITS ---
WS: [id number] Exam: XR KUB portable [id number] Date/Time of Exam: 05/02/2022 4:00 AM Reason For Exam: ileus Comparison 05/01/2022. There are still moderately dilated small bowel loops in the central abdomen showing little change sin ce prior study. Small amount scattered gas in the colon. There is a gas in the stomach. Organ margins are obscured. No obvious pneumoperitoneum. Neurostimulator pack again noted over the lower left abdo men with the leads extending cephalad. XR/XR KUB portable [id number] IMPRESSION: 1. Dilated small bowel loops in the central abdomen demonstrating little change since the prior study.
[2022-05-02 05:09] LABS: Basophils % 0.1 %; Eosinophils # 0.1 10^3/uL (0.0-0.8); Eosinophils % 0.3 %; Hematocrit 28.6 % (42.0-52.0); Hemoglobin 9.6 g/dL (11.7-16.6); Lymphocytes # 0.8 10^3/uL (0.8-4.8); Lymphocytes % 5.3 %; Mean Corpuscular HGB Conc 33.6 g/dL (30.0-36.0); Mean Corpuscular Hemoglobin 28.2 pg (28.0-34.0); Mean Corpuscular Volume 84.1 fl (80-94); Mean Platelet Volume 9.6 fL (7.4-10.4); Monocytes # 0.6 10^3/uL (0.2-0.9); Monocytes % 4.2 %; Neutrophils # 13.78 10^3/uL (1.8-7.7); Neutrophils % 89.5 %; Nucleated Red Blood Cells % 0 %; Platelet Count 455 10^3/cmm (130-400); Red Cell Distribution Width 14.4 % (12.1-15.1); White Blood Count 15.4 10^3/uL (4.0-10.0)
[2022-05-02 05:32] LABS: Blood Urea Nitrogen 33 mg/dL (8-23); Calcium 8.4 mg/dL (8.5-10.5); Carbon Dioxide 27 mmol/L (22-29); Chloride 95 mmol/L (98-107); Glucose 136 mg/dL (65-115); Osmolality Calculated 285 mOsm/kg (285-295); Sodium 133 mmol/L (136-145)
[2022-05-02 05:36] LABS: Anion Gap 13.6 (5-19)
[2022-05-02 05:39] LABS: Potassium 2.6 mmol/L (3.5-5.1)
[2022-05-02] MEDS: lidocaine 1% 5 ML in potassium chloride premix 100 ML 25 ML IV ×3 (05:58→21:51)
--- NOTE | 2022-05-02 06:34 | PM.PN ---
Subjective Subjective: No overnight events TPN running at 40 mill per hour last night Hemodynamically stable No fever 1 bowel movement I will repeat H&H is FOBT was positive Repeat H&H did not showed significant drop in hemoglobin Potassium 2.6 Will check mag level Potassium repleted KUB showing persistent dilation of small bowel Patient is stating that he is having bowel movement almost every hour since yesterday he is able to tolerate clear liquid diet, is passing gas as well abdomen is soft No nausea or emesis Creatinine 1.3 Vitals/I&O/Wt Last Vital Signs Temp 97.9 F 05/02/22 04:00 Pulse 80 05/02/22 05:48 Resp 17 05/02/22 04:00 BP 102/68 05/02/22 04:00 Pulse Ox 90 05/02/22 04:00 05/01/22 05/01/22 05/02/22 14:59 22:59 06:59 Intake Total 350 / 350 290 / 640 688.333 / 1328.333 Output Total 840 / 840 Balance 350 / 350 290 / 640 -151.667 / 488.333 Physical Exam Narrative: Hemodynamically stable Nonfocal neuro exam EOMI, PERRLA Doing well on room air No audible stridor or wheezing Abdomen soft No further discharge from right lower quadrant S1, S2 Data : 05/02/22 07:25 05/02/22 04:35 A&P Assessment and plan (1) Ileus: Status: Acute (2) MARAL (acute kidney injury): Status: Acute (3) Pneumonia: Status: Acute Qualifiers: Laterality: right Lung location: lower lobe of lung Pneumonia type: due to unspecified organism Qualified Code(s): J18.9 - Pneumonia, unspecified organism (4) Hypovolemia: Status: Acute (5) Dehydration: Status: Acute (6) Hypokalemia: Status: Acute (7) H/O traumatic brain injury: Status: Acute (8) History of recurrent UTI (urinary tract infection): Status: Acute Plan Ileus Conservative management Patient is having bowel movement on regular basis Abdominal exam is benign We will follow-up with KUB today Tolerating clear liquid diet, will discontinue PPN later today Acute on chronic anemia Check iron panel FOBT positive Hemodynamically stable Repeat H&H stable He will need EGD outpatient Hypokalemia: Resolved Leukocytosis: Improving, sepsis ruled out, discontinue IV antibiotics, blood cultures, stool cultures negative Leukocytosis likely related to dehydration Patient is full code Decision regarding advancing diet will be made after reviewing KUB Discontinue anticoagulating agent for anemia Attestations Medical Necessity Statement*: Continue medical management Time Spent in Patient Care: 30 Coding Level of Care Code Acute Signs Sales Representative for [employer] Fwd Diagnoses Ileus K56.7 MARAL (acute kidney injury) N17.9 Pneumonia J18.9 Laterality: right Lung location: lower lobe of lung Pneumonia type: due to unspecified organism Hypovolemia E86.1 Dehydration E86.0 Hypokalemia E87.6 H/O traumatic brain injury Z87.820 History of recurrent UTI (urinary tract infection) Z87.440
[2022-05-02 07:42] LABS: Hemoglobin 10.9 g/dL (11.7-16.6)
[2022-05-02] MEDS: potassium chloride oral liq 20 mEq/15 mL UDC 40 MEQ PO (08:50)
[2022-05-02] MEDS: tamsulosin 0.4 mg Capsule PO (08:54)
[2022-05-02] MEDS: lisinopril 10 mg Tablet PO (08:55)
[2022-05-02] MEDS: amlodipine 10 mg Tablet PO (08:55)
[2022-05-02] MEDS: metoprolol tartrate 50 mg Tablet 100 MG PO ×2 (08:57→18:29)
[2022-05-02] MEDS: magnesium citrate Btl 296 mL 150 ML PO (10:49)
[2022-05-02 10:58] LABS: Blood Urea Nitrogen 32 mg/dL (8-23); Calcium 8.1 mg/dL (8.5-10.5); Carbon Dioxide 26 mmol/L (22-29); Chloride 93 mmol/L (98-107); Glucose 118 mg/dL (65-115)
[2022-05-02 11:01] LABS: Osmolality Calculated 278 mOsm/kg (285-295); Sodium 130 mmol/L (136-145)
[2022-05-02 11:02] LABS: Anion Gap 14.1 (5-19); Potassium 3.1 mmol/L (3.5-5.1)
--- NOTE | 2022-05-02 13:06 | PC.SOCIAL ---
IMM Update pg 2 of IMM updated and reviewed w/ patient. Copy provided and copy placed in chart.
[2022-05-02] MEDS: morphine 4 mg/mL SDV 1 mL IVP (19:51)
[2022-05-02] MEDS: nortriptyline 10 mg Capsule 20 MG PO (21:38)
[2022-05-02] MEDS: topiramate 25 mg Tablet 50 MG PO (21:38)
[2022-05-03 04:00] VITALS: BP 129/77; PULSE 70; RESP 18; TEMP 36.3; O2SAT 94
[2022-05-03 05:20] LABS: Basophils % 0.1 %; Eosinophils % 0.1 %; Hematocrit 30.9 % (42.0-52.0); Hemoglobin 10.1 g/dL (11.7-16.6); Lymphocytes % 6.7 %; Mean Corpuscular HGB Conc 32.7 g/dL (30.0-36.0); Mean Corpuscular Hemoglobin 27.8 pg (28.0-34.0); Mean Corpuscular Volume 85.1 fl (80-94); Mean Platelet Volume 9.3 fL (7.4-10.4); Monocytes # 0.8 10^3/uL (0.2-0.9); Monocytes % 5.5 %; Neutrophils # 12.73 10^3/uL (1.8-7.7); Neutrophils % 86.8 %; Nucleated Red Blood Cells % 0 %; Platelet Count 467 10^3/cmm (130-400); Red Blood Count 3.63 10^6/uL (4.1-5.3); Red Cell Distribution Width 14.6 % (12.1-15.1); White Blood Count 14.7 10^3/uL (4.0-10.0)
[2022-05-03 05:40] LABS: Anion Gap 15.3 (5-19); Blood Urea Nitrogen 34 mg/dL (8-23); Calcium 8.4 mg/dL (8.5-10.5); Carbon Dioxide 24 mmol/L (22-29); Chloride 102 mmol/L (98-107); Glucose 111 mg/dL (65-115); Osmolality Calculated 292 mOsm/kg (285-295); Potassium 4.3 mmol/L (3.5-5.1); Sodium 137 mmol/L (136-145)
[2022-05-03 08:00] VITALS: BP 126/82; PULSE 83; PULSE 98; RESP 16; TEMP 36.6; O2SAT 91; O2SAT 94
--- NOTE | 2022-05-03 08:03 | XR_ITS ---
WS: [id number] Exam: XR KUB portable [id number] Date/Time of Exam: 05/03/2022 8:05 AM Reason For Exam: ileus Comparison 05/02/2022. Continued dilatation of small bowel loops in the central abdomen. Very little change since prior stud y. No free air. No sign of obvious organ enlargement. Neurostimulator again noted in the left abdomin al region with the leads extending cephalad. There is some scattered gas in the colon and stomach. Po stoperative changes in the pelvis as previously detailed. XR/XR KUB portable [id number] IMPRESSION: 1. Dilatation of small bowel loops in the central abdomen showing little change since previous exam. Small amount of gas noted in the large bowel and stomach. 2. No pneumoperitoneum noted.
[2022-05-03] MEDS: metoprolol tartrate 50 mg Tablet 100 MG PO ×2 (08:28→18:30)
[2022-05-03] MEDS: tamsulosin 0.4 mg Capsule PO (08:28)
[2022-05-03] MEDS: lisinopril 10 mg Tablet PO (08:28)
[2022-05-03] MEDS: amlodipine 10 mg Tablet PO (08:28)
[2022-05-03 11:21] VITALS: BP 130/68; PULSE 75; RESP 16; TEMP 36.7; O2SAT 95
--- NOTE | 2022-05-03 11:55 | PM.PN ---
Subjective Subjective: On KUB gas pattern is more scattered, patient is endorsing feeling better, he has had 5 small solid bowel movement in last 24 hours, he is not complaining of nausea, emesis or abdominal pain PPN has been discontinued 05/02 No leakage around right lower quadrant wound He was asking to advance his diet I would like to keep him on clear liquid for now, gaseous distention of small bowel has not resolved completely is at the bedside Patient is stating that he had an appointment with Dr. Ness tomorrow, will touch base with Dr. Ness if he could do postoperative evaluation in the hospital Vitals/I&O/Wt Last Vital Signs Temp 98.1 F 05/03/22 11:21 Pulse 75 05/03/22 11:21 Resp 16 05/03/22 11:21 BP 130/68 05/03/22 11:21 Pulse Ox 95 05/03/22 11:21 05/02/22 05/03/22 05/03/22 22:59 06:59 14:59 Intake Total 1220 / 1220 202.774 / 1422.774 358 / 358 Output Total 500 / 500 300 / 800 Balance 720 / 720 -97.226 / 622.774 358 / 358 Physical Exam Narrative: Patient is clinically doing much better much more improved and his energy and hydration status TPN has been discontinued Abdomen is soft, slightly bloated No drainage or signs of celluliti around surgical site Dry dressing on the right lower quadrant wound Surgical scar likely relation tissue Bowel sounds present, abdomen is soft No signs of dehydration or edema S1, S2 Saturating well on room air Very pleasant and cooperative Data : 05/03/22 05:12 05/03/22 05:12 Micro: Microbiology 04/29/22 13:32 Urine Culture - Final Urine,Clean Catch Tamiko albicans A&P Assessment and plan (1) Ileus: Status: Acute (2) MARAL (acute kidney injury): Status: Acute (3) Pneumonia: Status: Acute Qualifiers: Laterality: right Lung location: lower lobe of lung Pneumonia type: due to unspecified organism Qualified Code(s): J18.9 - Pneumonia, unspecified organism (4) Hypovolemia: Status: Acute (5) Hypokalemia: Status: Acute (6) Dehydration: Status: Acute Plan Leukocytosis, electrolyte imbalance: Improved Ileus improving, scattered gas pattern on KUB, tolerating regular diet, multiple bowel movements, no active nausea abdominal pain or emesis Continue critical diet TPN has been discontinued Pneumonia ruled out He suffered from atelectasis which was evident on the x-ray, it has improved Electrolytes replenished Chronic kidney disease: Creatinine seems to be at baseline Postop appointment tomorrow with Dr. Ness, will ask Dr. Ness if he could evaluate him here I might advance his diet tomorrow however would like to keep him on clear liquids for now He is normotensive Full code Clear liquid diet DVT prophylaxis on board I will let Dr. Redd replace his Valdez catheter Attestations Medical Necessity Statement*: If Showing Signs of Improvement Might Be Able to Discharge Him on Saturday or Saturday Time Spent in Patient Care: 35 Coding Level of Care Code Acute Clinical Education Academic Coordinator for g Fwd Diagnoses Ileus K56.7 MARAL (acute kidney injury) N17.9 Pneumonia J18.9 Laterality: right Lung location: lower lobe of lung Pneumonia type: due to unspecified organism Hypovolemia E86.1 Hypokalemia E87.6 Dehydration E86.0
[2022-05-03] MEDS: enoxaparin 40 mg/0.4 mL Syringe SUBCUT (15:18)
[2022-05-03] MEDS: magnesium citrate Btl 296 mL 150 ML PO (15:18)
[2022-05-03 16:00] VITALS: BP 146/69; PULSE 75; RESP 18; TEMP 36.5; O2SAT 98
[2022-05-03 20:00] VITALS: BP 137/77; PULSE 76; RESP 16; RESP 17; TEMP 37.2; O2SAT 95; O2SAT 96
[2022-05-03] MEDS: topiramate 25 mg Tablet 50 MG PO (20:43)
[2022-05-03 23:50] VITALS: BP 139/78; PULSE 73; RESP 14; TEMP 37.1; O2SAT 95
--- NOTE | 2022-05-04 04:00 | XR_ITS ---
WS: [id number] Exam: XR KUB portable [id number] Date/Time of Exam: 05/04/2022 4:00 AM Reason For Exam: ileus Comparison 04/13/2022. Slightly less small bowel dilatation noted on the last study. There is some gas in the large bowel. N o free air. No sign of organ enlargement. Neurostimulator electrode again noted in the left abdomen. Vascular stents in the abdomen and pelvis. Degenerative changes of the lumbar spine. XR/XR KUB portable [id number] IMPRESSION: 1. Slightly less dilatation of small bowel loops in the central abdomen since p rior study. No other change.
[2022-05-04 05:25] VITALS: BP 161/86; PULSE 86; RESP 18; TEMP 36.6; O2SAT 90
[2022-05-04 08:00] VITALS: PULSE 81; RESP 18; O2SAT 98
[2022-05-04] MEDS: tamsulosin 0.4 mg Capsule PO (08:31)
[2022-05-04] MEDS: amlodipine 10 mg Tablet PO (08:31)
[2022-05-04] MEDS: metoprolol tartrate 50 mg Tablet 100 MG PO (08:32)
[2022-05-04] MEDS: lisinopril 10 mg Tablet PO (08:32)
[2022-05-04 09:00] VITALS: BP 119/74; PULSE 67; RESP 16; TEMP 36.4; O2SAT 95
--- NOTE | 2022-05-04 09:20 | PC.SOCIAL ---
IMM Update pg 2 of IMM updated and reviewed w/ patient. Copy provided and Copy in chart updated.
--- NOTE | 2022-05-04 11:13 | PM.PN ---
Subjective Subjective: Patient is stating that he would like to have regular diet to see how he does Did ask him to start with GI soft but he is adamant that he would like to start regular diet in order to go home tomorrow He has been having frequent bowel movements since yesterday, I gave him mag citrate KUB showing slight improvement Afebrile Vitals/I&O/Wt Last Vital Signs Temp 97.5 F L 05/04/22 09:00 Pulse 67 05/04/22 09:00 Resp 16 05/04/22 09:00 BP 119/74 05/04/22 09:00 Pulse Ox 95 05/04/22 09:00 05/03/22 05/04/22 05/04/22 22:59 06:59 14:59 Intake Total 188 / 629.226 Output Total 300 / 300 75 / 75 Balance -112 / 329.226 -75 / -75 Physical Exam Narrative: Patient looks well-hydrated S1, S2 Saturating well on room air at the bedside Nonfocal neuro exam Abdomen is soft Good sign of granulation tissue good signs of healing around surgical site Abdomen is soft Bowel sounds present hypoactive Data : 05/03/22 05:12 05/03/22 05:12 A&P Assessment and plan (1) Ileus: Status: Acute (2) MARAL (acute kidney injury): Status: Acute (3) Hypovolemia: Status: Acute (4) Hypokalemia: Status: Acute (5) Dehydration: Status: Acute Plan Clinically patient has improved Discontinue IV fluids Advance diet to regular KUB showing signs of slight improvement Patient is adamant that he would like to try regular diet, he has been having regular bowel movement Mag citrate 2 doses were given, Abdomen is soft No active nausea or vomiting Surgical site showing good signs of healing No active sign of cellulitis And hoping to discharge him tomorrow if he is able to tolerate diet Dr. 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
[2022-05-04] MEDS: enoxaparin 40 mg/0.4 mL Syringe SUBCUT (11:42)
[2022-05-04 11:50] VITALS: BP 139/73; PULSE 64; RESP 16; TEMP 36.9; O2SAT 94
--- NOTE | 2022-05-04 15:17 | PM.DCS ---
Discharge Providers Date of Admission: 04/29/22 15:17 Date of Discharge: May 04, 2022 Attending Provider at Admission: Tierra Piña MD Attending Provider at Discharge: Tierra Piña MD Diagnoses at Discharge Discharge Diagnosis (1) Ileus: Status: Acute (2) MARAL (acute kidney injury): Status: Acute (3) Hypovolemia: Status: Acute (4) Hypokalemia: Status: Acute (5) Dehydration: Status: Acute Reason for Visit Reason for Visit: n/v Hospital Course Hospital Course 77-year-old male who was recently discharged from the hospital after laparoscopic sigmoid colectomy, partial cystectomy and colonoscopy 04/20 he was discharged after 2 units PRBC transfusion presented to the hospital with chief complaint of recurrent nausea vomiting. Patient was treated for ileus with conservative management. NG tube was placed which drained bilious content. His NG tube was replaced twice after it was removed by the patient. He was diagnosed with hospital-acquired pneumonia as well at the time of admission, he was given broad-spectrum antibiotics, he did not spike fever, potassium, anticoagulation, he did well on room air. He was given multiple dose of mag citrate, he was having bowel movements, tolerating regular diet, Dr. Ness also evaluated him in the hospital, he recommended sending him home on 05/04 on regular diet. His cultures remain negative. His Valdez catheter will be removed by Dr. Redd. Physical Exam Narrative: Patient looks well-hydrated S1, S2 Saturating well on room air at the bedside Nonfocal neuro exam Abdomen is soft Good sign of granulation tissue good signs of healing around surgical site Abdomen is soft Bowel sounds present hypoactive Surgical scar without any signs of cellulitis Discharge Data Studies Completed and Pending Completed Studies During Hospitalization Category Date Time Status CT abdomen pelvis wo con [id number] Urgent Cat Scan 04/29/22 14:06 Completed CXRP [XR chest 1V portable [id number]] Routine Exams 05/01/22 02:16 Completed XR KUB portable [id number] Routine Exams 04/30/22 04:00 Completed XR KUB portable [id number] Routine Exams 05/01/22 04:00 Completed XR KUB portable [id number] Routine Exams 05/02/22 04:00 Completed XR KUB portable [id number] Routine Exams 05/03/22 08:03 Completed XR KUB portable [id number] Routine Exams 05/04/22 04:00 Completed XR chest 1V portable [id number] Stat Exams 04/29/22 13:21 Completed XR chest 1V portable [id number] Stat Exams 04/29/22 20:44 Completed Pending at discharge Category Date Time Status XR KUB portable [id number] Routine Exams 05/05/22 04:00 Ordered Sputum Culture and Gram Stain Routine Lab 04/29/22 19:31 Uncollected Radiology Impressions Abdomen/Pelvis CT 04/29/22 14:06 IMPRESSION: 1. Multiple dilated bowel loops no bowel obstruction 2. Right hepatic lobe benign cyst. 3. Multiple bilateral renal cyst of varying sizes. 4. Right lower lung pneumonia 5. Subcutaneous emphysema right lower chest and abdomen. 6. Left gluteal electronic device in place. 7. Bilateral iliac artery metallic stents 8. Severe lumbar spine osteoarthritis 9. Left adrenal adenoma, right adrenal not visible. 10. Perirectal postoperative sutures. Chest X-Ray 05/01/22 02:16 IMPRESSION: The distal tip of the enteric tube projects below the level of the diaphragm in the region of the proximal stomach. If this enteric tube has a proximal side hole, it is not well visualized on this exam. Consider advancement by approximately 5 to 10 cm. KUB X-Ray 05/04/22 04:00 IMPRESSION: 1. Slightly less dilatation of small bowel loops in the central abdomen since prior study. No other change. Laboratory Results WBC 14.7 10^3/uL (4.0-10.0) H 05/03/22 05:12 RBC 3.63 10^6/uL (4.1-5.3) L 05/03/22 05:12 Hgb 10.1 g/dL (11.7-16.6) L 05/03/22 05:12 Hct 30.9 % (42.0-52.0) L 05/03/22 05:12 MCV 85.1 fl (80-94) 05/03/22 05:12 MCH 27.8 pg (28.0-34.0) L 05/03/22 05:12 MCHC 32.7 g/dL (30.0-36.0) 05/03/22 05:12 RDW 14.6 % (12.1-15.1) 05/03/22 05:12 Plt Count 467 10^3/cmm (130-400) H 05/03/22 05:12 MPV 9.3 fL (7.4-10.4) 05/03/22 05:12 Neut % (Auto) 86.8 % 05/03/22 05:12 Lymph % (Auto) 6.7 % 05/03/22 05:12 [place] % (Auto) 5.5 % 05/03/22 05:12 Eos % (Auto) 0.1 % 05/03/22 05:12 Baso % (Auto) 0.1 % 05/03/22 05:12 Neut # (Auto) 12.73 10^3/uL (1.8-7.7) H 05/03/22 05:12 Lymph # (Auto) 1.0 10^3/uL (0.8-4.8) 05/03/22 05:12 [place] # (Auto) 0.8 10^3/uL (0.2-0.9) 05/03/22 05:12 Eos # (Auto) 0.0 10^3/uL (0.0-0.8) 05/03/22 05:12 Baso # (Auto) 0.0 10^3/uL (0.0-0.1) 05/03/22 05:12 Nucleated RBC % (auto) 0 % 05/03/22 05:12 Nucleated RBCs # 0.0 /100WBC 05/03/22 05:12 Sodium 137 mmol/L (136-145) 05/03/22 05:12 Potassium 4.3 mmol/L (3.5-5.1) 05/03/22 05:12 Chloride 102 mmol/L (98-107) 05/03/22 05:12 Carbon Dioxide 24 mmol/L (22-29) 05/03/22 05:12 Anion Gap 15.3 (5-19) 05/03/22 05:12 BUN 34 mg/dL (8-23) H 05/03/22 05:12 Creatinine 1.5 mg/dL (0.7-1.2) H 05/03/22 05:12 GFR Calculation Not Reportable 05/03/22 05:12 Glucose 111 mg/dL (65-115) 05/03/22 05:12 Calculated Osmolality 292 mOsm/kg (285-295) 05/03/22 05:12 Lactic Acid 1.1 mmol/L (0.5-2.2) 04/30/22 04:32 Lactic Acid (Sepsis) 1.3 mmol/L (0.5-2.2) 04/29/22 16:48 Calcium 8.4 mg/dL (8.5-10.5) L 05/03/22 05:12 Magnesium 2.0 mg/dL (1.7-2.3) 05/02/22 04:35 Total Bilirubin 1.3 mg/dL (0.15-1.2) H 04/29/22 13:10 AST 23 U/L (0-40) 04/29/22 13:10 ALT 37 U/L (0-41) 04/29/22 13:10 Alkaline Phosphatase 219 IU/L (40-130) H 04/29/22 13:10 Troponin T Baseline 70 ng/L (0-15) H 04/29/22 13:20 Troponin T 120 Minute 56.89 ng/L (0-15) H 04/29/22 15:32 Delta Troponin T -13.11 ABS# (0-10) L 04/29/22 15:32 Troponin T Hi Sens 6Hr 60.10 ng/L (0-15) H 04/29/22 19:37 Troponin T Hi Sens 6Hr Delta -9.90 ng/L (0-12) L 04/29/22 19:37 C-Reactive Protein 149.6 mg/L (0.0-4.9) H 05/01/22 05:25 Total Protein 7.4 g/dL (6.6-8.7) 04/29/22 13:10 Albumin 3.9 g/dL (3.5-5.2) 04/29/22 13:10 Globulin 3.5 g/dL (1.3-4.6) 04/29/22 13:10 Lipase 13 U/L (13-60) 04/29/22 13:10 Procalcitonin 0.83 ng/mL (0-0.5) H 05/01/22 05:25 Urine Color Jud (Yellow) 04/29/22 13:32 Urine Appearance Hazy (CLEAR) A 04/29/22 13:32 Urine pH 5 (5-7) 04/29/22 13:32 Ur Specific [place] 1.025 (1.005-1.030) 04/29/22 13:32 Urine Protein 1+ (Negative) H 04/29/22 13:32 Urine Glucose (UA) Norm (Normal) 04/29/22 13:32 Urine Ketones 1+ (Negative) H 04/29/22 13:32 Urine Blood 3+ (Negative) H 04/29/22 13:32 Urine Nitrate Negative (Negative) 04/29/22 13:32 Urine Bilirubin 1+ (Negative) H 04/29/22 13:32 Urine Urobilinogen 1 mg/dL (Negative) H 04/29/22 13:32 Ur Leukocyte Esterase 2+ (Negative) H 04/29/22 13:32 Urine RBC 10-15 /hpf (0-2) H 04/29/22 13:32 Urine WBC 25-40 /hpf (0-5) H 04/29/22 13:32 Ur Squamous Epith Cells None /hpf (0-5) 04/29/22 13:32 Amorphous Sediment Not Reportable 04/29/22 13:32 Urine Bacteria 1+ /hpf (NONE) H 04/29/22 13:32 Urine Yeast 3+ /hpf H 04/29/22 13:32 Vitals Last Vital Signs Temp 98.5 F 05/04/22 11:50 Pulse 64 05/04/22 11:50 Resp 16 05/04/22 11:50 BP 139/73 05/04/22 11:50 Pulse Ox 94 05/04/22 11:50 Discharge Plan Discharge Patient Disposition: Home Condition: Stable Prescriptions: New lisinopril 10 mg Tablet 10 mg PO DAILY Qty: 30 4RF Continued metoprolol tartrate 100 mg tablet 100 mg PO BID 0RF ferrous sulfate [FeroSul] 325 mg (65 mg iron) tablet 325 mg PO DAILY 0RF aspirin 81 mg tablet,delayed release (DR/EC) 81 mg PO DAILY 0RF nortriptyline 10 mg capsule 20 mg PO BEDTIME 0RF lamotrigine [Lamictal ODT] 100 mg tablet,disintegrating 100 mg PO BEDTIME 0RF topiramate 50 mg tablet 50 mg PO DAILY 0RF sucralfate 1 gram tablet 1 g PO QID 0RF clopidogrel 75 mg tablet 75 mg PO DAILY 0RF Hold Instructions: Resume on 04/28/22. cetirizine [All Day Allergy (cetirizine)] 10 mg tablet 10 mg PO DAILY PRN (Reason: Allergy Symptoms) 0RF ICaps AREDS [id number] barj-ja-[id number] capsule 1 cap PO BID 0RF cyanocobalamin (vitamin B-12) 1,000 mcg capsule 1,000 mcg PO DAILY 0RF tamsulosin 0.4 mg capsule 0.4 mg PO DAILY 0RF alendronate 70 mg tablet 70 mg PO Q7D 0RF Rx Instructions: On Wednesdays acetaminophen 500 mg tablet 500 mg PO Q6H PRN (Reason: pain) Qty: 24 0RF lidocaine 5 % adhesive patch,medicated 1 patch topical DAILY PRN (Reason: Pain, Mild) Qty: 20 0RF Rx Instructions: leave on most painful area for up to 12 hrs hydrocodone-acetaminophen 5-325 mg tablet 1 tab PO Q6H PRN (Reason: pain) Qty: 14 0RF ondansetron 4 mg tablet,disintegrating 4 mg PO Q6H PRN (Reason: nausea and vomiting) Qty: 14 0RF sennosides-docusate sodium [Senna with Docusate Sodium] 8.6-50 mg tablet 1 tab-cap PO BID Qty: 30 0RF Held hydrochlorothiazide 12.5 mg tablet 12.5 mg PO DAILY 0RF Hold Instructions: Resume on 05/11/22. Discharge Orders: Discharge Order (Routine); Ordered 05/04/22 Ordered By: Tierra Piña Referrals: Braulio Redd MD [Physician] - 1 week Discharge Diet: Regular Discharge Activity: Increase activity as tolerated Patient Instructions: Opioid Safety Discharge Attestations Time Spent in Discharge Care*: less than 30 min Quality Metrics Clinical Quality Measures [ No reported AMI, CVA or VTE this stay] Coding Level of Care Code Acute Chg FW DC note Diagnoses Ileus K56.7 MARAL (acute kidney injury) N17.9 Hypovolemia E86.1 Hypokalemia E87.6 Dehydration E86.0
[2022-05-04 15:44] VITALS: BP 139/73; PULSE 64; RESP 16; TEMP 36.9; O2SAT 94
--- NOTE | 2022-05-04 15:49 | PC.NURSE ---
Pt is alert and oriented and has regular respirations. Pt IV intact and removed for discharge. Provided pt discharge instructions. Pt verbalized understanding of discharge instructions.
== END 2022-05-04 16:48 | disposition home or self-care (01) | DRG 388 ==
LOC: ER 13:21 → MEDSURG 16:35
PROVIDERS: Admitting Provider Internal Medicine; Emergency Provider Physician Assistant; Visit Provider Internal Medicine
DX: K56.7 Ileus, unspecified (principal); J18.9 Pneumonia, unspecified organism; R57.1 Hypovolemic shock; N17.9 Acute kidney failure, unspecified; E87.2 Acidosis; J98.11 Atelectasis; Y95 Nosocomial condition; E87.6 Hypokalemia; Z87.820 Personal history of traumatic brain injury; F03.90 Unspecified dementia, unspecified severity, without behavioral disturbance, psychotic disturbance, mood disturbance, and anxiety; Z90.49 Acquired absence of other specified parts of digestive tract; K21.9 Gastro-esophageal reflux disease without esophagitis; E86.0 Dehydration; N18.9 Chronic kidney disease, unspecified; I12.9 Hypertensive chronic kidney disease with stage 1 through stage 4 chronic kidney disease, or unspecified chronic kidney disease; N40.0 Benign prostatic hyperplasia without lower urinary tract symptoms; Z79.891 Long term (current) use of opiate analgesic; Z79.02 Long term (current) use of antithrombotics/antiplatelets; Z79.82 Long term (current) use of aspirin
CPT/HCPCS: 36415; 71045; 74018; 74176; 80048; 80053; 81001; 82274; 83605; 83690; 83735; 84145; 84484; 85014; 85018; 85025; 86140; 86403; 87040; 87086; 87106; 87449; 87493; 87506; 93005; 96365; 96366; 96367; 96372; 99285; J1650; J2020; J2270; J2543; J3370; J3480; J7030; J7050

== ENCOUNTER 2022-05-07 10:17 | Outpatient (CLI) | payer OTHER, SELFPAY ==
--- NOTE | 2022-05-07 11:15 | FL_ITS ---
WS: [id number] [place] cystogram [id number] REASON FOR EXAM: Previous colovesical fistula with partial bladder resection. FLUOROSCOPY TIME: 3min [id number] # OF SPOT FILMS: 7 FINDINGS: 75 mL of contrast was instilled into the postsurgical bladder via a Valdez catheter previously placed. The patient was unable to tolerate additional volume. No extravasation or fistula from the postsurgical bladder was identified. No significant residual after drainage. FL/FL cystogram [id number] IMPRESSION: Small volume postoperative bladder with no extravasation or fistula identified.
== END 2022-05-07 10:18 | disposition home or self-care (01) ==
PROVIDERS: Visit Provider Urology
DX: Z90.6 Acquired absence of other parts of urinary tract (principal); Z90.49 Acquired absence of other specified parts of digestive tract; Z98.890 Other specified postprocedural states; N32.1 Vesicointestinal fistula
CPT/HCPCS: 74430; 99024

== ENCOUNTER 2022-05-12 19:43 | Inpatient (IN) | payer OTHER, MEDICARE, SELFPAY ==
[2022-05-12 19:49] VITALS: BP 90/50; PULSE 121; RESP 18; TEMP 36.7; O2SAT 95
[2022-05-12] MEDS: sodium chloride 0.9% 1,000 ML 999 ML IV (21:25)
[2022-05-12 21:34] LABS: Basophils % 0.1 %; Eosinophils % 0.1 %; Hematocrit 37.5 % (42.0-52.0); Hemoglobin 11.9 g/dL (11.7-16.6); Lymphocytes # 1.1 10^3/uL (0.8-4.8); Lymphocytes % 7.4 %; Mean Corpuscular HGB Conc 31.7 g/dL (30.0-36.0); Mean Corpuscular Hemoglobin 27.6 pg (28.0-34.0); Mean Platelet Volume 9.1 fL (7.4-10.4); Monocytes # 0.6 10^3/uL (0.2-0.9); Monocytes % 4.2 %; Neutrophils # 13.31 10^3/uL (1.8-7.7); Neutrophils % 87.3 %; Nucleated Red Blood Cells % 0 %; Platelet Count 642 10^3/cmm (130-400); Red Blood Count 4.31 10^6/uL (4.1-5.3); Red Cell Distribution Width 14.6 % (12.1-15.1); White Blood Count 15.2 10^3/uL (4.0-10.0)
[2022-05-12] MEDS: ondansetron 2 mg/ML SDV 2 mL 4 MG IVP (21:41)
[2022-05-12 21:54] LABS: Lactate (Lactic Acid level) 2.8 mmol/L (0.5-2.2)
[2022-05-12 21:55] LABS: Alanine Aminotransferase 16 U/L (0-41); Albumin Level 3.8 g/dL (3.5-5.2); Alkaline Phosphatase 186 IU/L (40-130); Anion Gap 18.6 (5-19); Aspartate Amino Transferase 21 U/L (0-40); Blood Urea Nitrogen 40 mg/dL (8-23); C Reactive Protein 140.9 mg/L (0.0-4.9); Calcium 9.9 mg/dL (8.5-10.5); Carbon Dioxide 23 mmol/L (22-29); Chloride 98 mmol/L (98-107); Globulin 3.3 g/dL (1.3-4.6); Glucose 156 mg/dL (65-115); Lipase 12 U/L (13-60); Osmolality Calculated 295 mOsm/kg (285-295); Potassium 3.6 mmol/L (3.5-5.1); Sodium 136 mmol/L (136-145); Total Bilirubin 0.4 mg/dL (0.15-1.2); Total Protein 7.1 g/dL (6.6-8.7)
--- NOTE | 2022-05-12 21:57 | CTR_ITS ---
PROCEDURE INFORMATION: Exam: CT Abdomen And Pelvis Without Contrast Exam date and time: 05/12/2022 10:19 PM Age: 77 years old Clinical indication: Bloating and vomiting; Abdominal pain; Generalized; Additional info: Abd pain, distension, vomiting TECHNIQUE: Imaging protocol: Computed tomography of the abdomen and pelvis without contrast. Radiation optimization: All CT scans at this facility use at least one of these dose optimization techniques: automated exposure control; mA and/or kV adjustment per patient size (includes targeted exams where dose is matched to clinical indication); or iterative reconstruction. COMPARISON: CT abdomen pelvis wo con [id number] 04/29/2022 2:26 PM RADIATION DOSE METRICS: Total DLP (mGy-cm): 902.56 FINDINGS: Tubes, catheters and devices: Subcutaneous electronic stimulator device in the left lumbar region with metallic wire coursing cephalad. Liver: Normal liver size without cirrhosis. Stable hypodense right hepatic lobe lesion, measuring about 10 mm, likely benign such as hepatic cyst. Gallbladder and bile ducts: Normal. No calcified stones. No ductal dilation. Pancreas: Normal. No ductal dilation. Spleen: Normal. No splenomegaly. Adrenal glands: Normal. No mass. Kidneys and ureters: Bilateral simple renal cysts measuring up to 8 cm on the right and 7.4 cm on the left. No hydronephrosis. Stomach and bowel: Moderate diffuse small bowel dilatation similar to previous exam with a probable gradual transitional segment in the anterior superior upper abdomen series 2, image 20. No large obstructive bowel mass, pneumatosis or free air however these findings are suggestive of distal small bowel obstruction, possibly related to adhesion.. There is a minimally distended rectal segment with superior rectal anastomotic sutures presumably distal small bowel-rectal anastomosis. A long segment of normal bowel caliber is seen proximal to the rectal anastomosis. There is present presumed prior colonic resection. Appendix: No evidence of appendicitis. Intraperitoneal space: See Stomach and bowel finding. Vasculature: No abdominal aortic aneurysm. Bilateral iliac arterial stents are again noted. Diffuse arterial calcification with no aortic aneurysm. A left femoral stent and bilateral femoral surgical bypass grafts are partially visualized. No large hematoma in the right groin region. Lymph nodes: No enlarged lymph nodes. Urinary bladder: Unremarkable as visualized. Reproductive: Unremarkable as visualized. Bones/joints: Probable osteopenia. Multilevel vertebral disc degeneration and endplate osteophytes. No acute osseous findings otherwise. Soft tissues: No acute findings. CT/CT abdomen pelvis wo con [id number] IMPRESSION: 1. Moderate diffuse small bowel distension with probable gradual transition in the anterior upper abdomen. Findings suggest small bowel obstruction, possibly due to adhesion, and appears similar to prior exam. No free air, pneumatosis or suspicious bowel wall thickening however assessment is limited due to lack of contrast. Evidence of rectal anastomosis however no obvious obstruction is present at this level. Surgical consultation should be considered. 2. Other nonacute findings as described.
--- NOTE | 2022-05-12 22:34 | ED_ITS ---
HPI - Nausea/Vomiting/Diarrhea General: Chief complaint: Nausea/Vomiting/Diarrhea Stated complaint: Vomiting, SOB, Weak Time Seen by Provider: 05/12/22 20:55 Source: patient and family History of Present Illness: 77-year-old gentleman with a bit of a complicated history lately. He had a colovesicular fistula removed and repaired recently. He developed an ileus, and was hospitalized for vomiting at that point. He had acute kidney injury. He has been home for 2 days. His notes that he has been weak, short of breath, and has begun to vomit again. He vomited once at home after dinner. He has not had much of an appetite. He is now, since his arrival, having significant watery stool. They deny fever or chills. MD elicited complaint: nausea, vomiting and diarrhea Pertinent past history: abdominal surgery and other Onset (ago): hour(s) Description of vomiting: food contents Description of diarrhea: watery Associated nausea: Yes Associated abdominal pain: Yes (Now resolved) Location of pain: None Radiation: diffuse Pain consistency: intermittent and now resolved Severity: moderate Associated symtoms: Reports cough, decreased urine output, fatigue, anorexia and nausea; Denies altered mental status, chest pain, diaphoresis, dysuria, fevers/chills or headache(s) Review of Systems Const: Reports: fatigue; Denies: fever(s) or diaphoresis Card: Denies: chest pain Resp: Reports: dyspnea and productive cough GI: Reports: abdominal pain, nausea, vomiting and diarrhea : Denies: dysuria Neuro: Denies: headache(s) [facility] ED PFSH: Medical History MARAL (acute kidney injury) Dehydration H/O traumatic brain injury History of diverticulitis History of recurrent UTI (urinary tract infection) Hypokalemia Hypovolemia Ileus Pneumonia Sepsis Surgical History H/O hemorrhoidectomy X3 H/O partial cystectomy (~04/20/22) H/O shoulder surgery right H/O sinus surgery H/O vascular surgery 5 on right leg and 2 on left History of ankle surgery right -due to fracture History of cataract surgery bilateral History of colonoscopy with polypectomy 2019 History of esophagogastroduodenoscopy (EGD) 2019 S/P insertion of spinal cord stimulator S/P laparoscopic-assisted sigmoidectomy (~04/20/22) Family History Mother , at age 83 No problems noted. Father , at age 78 Alzheimer's dementia Social History Smoking and tobacco status: former smoker Alcohol intake: never Marital status: Current occupational status: disabled History of recent travel: No Physical Exam Const: EXAM LIMITATIONS: no altered mental status GENERAL APPEARANCE: cooperative and frail appearing NUTRITIONAL APPEARANCE: thin HENMT: COMMON NORMALS: normocephalic, atraumatic and Normal external nose p resent HEAD & SCALP: normocephalic and atraumatic FACE & SINUS: normal facial exam and face symmetric NOSE: Normal external nose present Eye: COMMON NORMALS: Equal, round and reactive pupils present and EOMs intact bilaterally PUPIL: Yes Equal, round and reactive pupils present Chest: CHEST: Yes Symmetrical chest wall rise Resp: COMMON NORMALS: normal respiratory effort, No use of accessory muscles and clear to auscultation bilaterally AUSCULTATION: clear to auscultation bilaterally Cardio: COMMON NORMALS: regular rate and regular rhythm RATE: regular rate RHYTHM: regular rhythm GI: COMMON NORMALS: Normal to inspection, nondistended, normoactive bowel sounds present Extremity: COMMON NORMALS: no pedal edema Neuro: RUSS COMA SCALE: document GCS findings [place] coma scale eye opening: Spontaneous [place] coma scale verbal response: Orientated [place] coma scale motor response: Obey commands [place] coma scale total score: 15 Course Vital Signs: Vital signs: Vital Signs Temperature 97.7 F 05/14/22 15:28 Pulse Rate 66 05/14/22 15:28 Respiratory Rate 15 05/14/22 15:28 Blood Pressure 135/80 05/14/22 15:28 Pulse Oximetry 96 05/14/22 15:28 MDM - Nausea/Vomiting/Diarrhea Medical Decision Making 77 year old gentleman with vomiting and abdominal distention. CT reveals likely at least partial small bowel obstruction, possibly due to an adhesion. Ng tube is placed in the ER. Surgery is consulted from the ER. The patient will be admitted to medicine. He has acute kidney injury as well, and will be placed on fluid support. Lab Data : 05/14/22 04:16 05/14/22 04:16 Radiology Impressions Abdomen/Pelvis CT 05/12/22 21:57 IMPRESSION: 1. Moderate diffuse small bowel distension with probable gradual transition in the anterior upper abdomen. Findings suggest small bowel obstruction, possibly due to adhesion, and appears similar to prior exam. No free air, pneumatosis or suspicious bowel wall thickening however assessment is limited due to lack of contrast. Evidence of rectal anastomosis however no obvious obstruction is present at this level. Surgical consultation should be considered. 2. Other nonacute findings as described. ADDENDUM: 05/12/[id number] Zuniga was notified by phone at 12:19 a.m. Eastern time. Chest X-Ray 05/13/22 05:14 IMPRESSION: 1. Negative for acute abnormality. 2. NG tube is in the mid esophagus requires repositioning 3. Electronic stimulator wire mid dorsal spine KUB X-Ray 05/14/22 04:00 IMPRESSION: 1. Nasogastric tube is in good position. 2. Interval reduction in number and size of dilated bowel loops. Laboratory Results WBC 15.2 10^3/uL (4.0-10.0) H 05/12/22 21:25 RBC 4.31 10^6/uL (4.1-5.3) 05/12/22 21:25 Hgb 11.9 g/dL (11.7-16.6) 05/12/22 21:25 Hct 37.5 % (42.0-52.0) L 05/12/22 21:25 MCV 87.0 fl (80-94) 05/12/22 21:25 MCH 27.6 pg (28.0-34.0) L 05/12/22 21:25 MCHC 31.7 g/dL (30.0-36.0) 05/12/22 21:25 RDW 14.6 % (12.1-15.1) 05/12/22 21:25 Plt Count 642 10^3/cmm (130-400) H 05/12/22 21:25 MPV 9.1 fL (7.4-10.4) 05/12/22 21:25 Neut % (Auto) 87.3 % 05/12/22 21:25 Lymph % (Auto) 7.4 % 05/12/22 21:25 [place] % (Auto) 4.2 % 05/12/22 21:25 Eos % (Auto) 0.1 % 05/12/22 21:25 Baso % (Auto) 0.1 % 05/12/22 21:25 Neut # (Auto) 13.31 10^3/uL (1.8-7.7) H 05/12/22 21:25 Lymph # (Auto) 1.1 10^3/uL (0.8-4.8) 05/12/22 21:25 [place] # (Auto) 0.6 10^3/uL (0.2-0.9) 05/12/22 21:25 Eos # (Auto) 0.0 10^3/uL (0.0-0.8) 05/12/22: Baso # (Auto) 0.0 10^3/uL (0.0-0.1) 05/12/22 21:25 Nucleated RBC % (auto) 0 % 05/12/22: Nucleated RBCs # 0.0 /100WBC 05/12/22 21:25 Sodium 136 mmol/L (136-145) 05/12/22 21:25 Potassium 3.6 mmol/L (3.5-5.1) 05/12/22 21:25 Chloride 98 mmol/L (98-107) 05/12/22 21:25 Carbon Dioxide 23 mmol/L (22-29) 05/12/22 21:25 Anion Gap 18.6 (5-19) 05/12/22 21:25 BUN 40 mg/dL (8-23) H 05/12/22 21:25 Creatinine 2.1 mg/dL (0.7-1.2) H 05/12/22 21:25 GFR Calculation Not Reportable 05/12/22 21:25 Glucose 156 mg/dL (65-115) H 05/12/22 21:25 Calculated Osmolality 295 mOsm/kg (285-295) 05/12/22 21:25 Lactate 2.8 mmol/L (0.5-2.2) H 05/12/22 21:25 Calcium 9.9 mg/dL (8.5-10.5) 05/12/22 21:25 Total Bilirubin 0.4 mg/dL (0.15-1.2) 07/02/22 21:25 AST 21 U/L (0-40) 05/12/22 21:25 ALT 16 U/L (0-41) 05/12/22 21:25 Alkaline Phosphatase 186 IU/L (40-130) H 05/12/22 21:25 C-Reactive Protein 140.9 mg/L (0.0-4.9) H 05/12/22 21:25 Total Protein 7.1 g/dL (6.6-8.7) 05/12/22 21:25 Albumin 3.8 g/dL (3.5-5.2) 05/12/22 21:25 Globulin 3.3 g/dL (1.3-4.6) 05/12/22 21:25 Lipase 12 U/L (13-60) L 05/12/22 21:25 Discharge Plan Discharge Patient Disposition: Admitted As Inpatient Admit Provider: Daja Javier Clinical Impression: Small bowel obstruction, MARAL (acute kidney injury) Condition: Stable Coding Level of Care Code ED Consumer Marketing Specialist for Chg Fwd Exam Comprehensive
[2022-05-12 22:36] VITALS: BP 148/86; PULSE 84; RESP 16; O2SAT 100
[2022-05-12 23:43] VITALS: BP 136/82; PULSE 85; RESP 16; O2SAT 100
[2022-05-13] VITALS (12 sets, daily range): BP systolic 111–136; BP diastolic 70–86; PULSE 0–109; RESP 14–18; TEMP 36.4–36.9; O2SAT 94–100
--- NOTE | 2022-05-13 01:35 | XRR_ITS ---
PROCEDURE INFORMATION: Exam: XR Abdomen Exam date and time: 05/13/2022 1:56 AM Age: 77 years old Clinical indication: Device placement; Gi device; Nasogastric tube; Additional info: Ng placement TECHNIQUE: Imaging protocol: Radiologic exam of the abdomen. Views: Frontal supine view of the abdomen. 1 View. COMPARISON: CT abdomen pelvis con [id number] 05/12/2022 10:19 PM FINDINGS: Tubes, catheters and devices: The NG tube side port is in the distal esophagus and should be advanced approximately 7 cm. Spinal cord stimulator leads overlie the thoracic spine. Gastrointestinal tract: Stable dilated loops of bowel. Vasculature: Bilateral iliac stents are in place. Bones/joints: Unremarkable. XR/XR KUB portable [id number] IMPRESSION: 1. The NG tube side port is in the distal esophagus and should be advanced approximately 7 cm. 2. Stable dilated loops of bowel.
[2022-05-13] MEDS: cetacaine Spray 5 gm Can 1 SPRAY TOPICAL (01:39)
[2022-05-13] MEDS: heparin 5,000 unit/mL INJ 1 mL 5000 UNIT SUBCUT ×2 (02:54→13:39)
[2022-05-13] MEDS: dextrose 5%-sod chloride 0.9% 1,000 ML 100 ML IV (02:54)
[2022-05-13] MEDS: famotidine 20 mg/2 mL INJ IVP ×2 (02:54→13:39)
--- NOTE | 2022-05-13 03:06 | PC.NURSE ---
patient received from ED via wheelchair. Patient able to ambulate to bed with minimum assist. Received report from NORMA Ricks. Patient has NG tube in place from ED connected to intermittent suction with thick brown gastric contents visible. Patient up frequently to have liquid/water BM. Patient has been incontinent of bowel at times. Instructed patient on heparin, fluids and pepcid. Patient verbalized complete understanding. No other distress observed. Will continue to monitor.
--- NOTE | 2022-05-13 04:38 | P.HP_ITS ---
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 Ileus treated with conservative management, HAP with broad spectrum abx. He returns today with increasing weakness, excessive vomiting, multiple episodes of diarrhea and poor po intake. No fever. Review of Systems General: Reports: 10 or more systems reviewed and unremarkable except in HPI and below Const: Denies: fever(s), chills or body aches Eyes: Denies: change in vision, blurry vision or photophobia ENMT: Reports: hoarseness; Denies: throat pain, enlarged tonsils, odynophagia or nasal congestion Card: Denies: chest pain, palpitations, irregular heart rhythm, edema, swelling of feet/ankles, lightheadedness, pre-syncope, dyspnea on exertion or orthopnea Resp: Denies: dyspnea, productive cough, non-productive cough, wheezing, stridor, pain on inspiration, change in phlegm color, hemoptysis or chest congestion GI: Reports: abdominal pain, nausea, vomiting and diarrhea; Denies: hematemesis, coffee ground emesis, dysphagia, heartburn, constipation, GI cramping, change in stool character, hematochezia or melena : Denies: flank pain, dysuria, urinary frequency, urinary urgency, urinary hesitancy or hematuria Musc: Denies: neck pain, back pain, extremity pain, joint swelling, joint warmth or deformity Neuro: Denies: headache(s), numbness in extremities, weakness in extremities, sensory changes, difficulty walking, frequent falls, dizziness, vertigo, behavioral changes, Slurred speech present or seizure-like activity Psych: Denies: anxiety, depression, suicidal ideation or homicidal ideation Endo: Denies: polyuria, polydipsia, tired all the time, cold intolerance or hot flashes Juan F/Lymph: Denies: easy bruising or easy bleeding Medications/Allergies Home Medications Medication Instructions Recorded Confirmed Last Taken Type acetaminophen 500 mg tablet 500 mg PO Q6H PRN #24 tab 06/18/21 05/07/22 Unknown Rx lidocaine 5 % topical patch 1 patch TOPICAL DAILY PRN #20 ea 06/18/21 05/07/22 Unknown Rx hydrocodone 5 mg-acetaminophen 325 1 tab PO Q6H PRN #14 tab 04/10/22 05/07/22 04/29/22 Rx mg tablet ondansetron 4 mg disintegrating 4 mg PO Q6H PRN #14 tab 04/10/22 05/07/22 04/29/22 Rx tablet alendronate 70 mg tablet 70 mg PO Q7D tab 04/11/22 05/07/22 04/25/22 History aspirin 81 mg tablet,delayed 81 mg PO DAILY 04/11/22 05/07/22 04/29/22 History release cetirizine 10 mg tablet (All Day 10 mg PO DAILY PRN 04/11/22 05/07/22 04/19/22 History Allergy (cetirizine)) clopidogrel 75 mg tablet 75 mg PO DAILY 04/11/22 05/07/22 04/29/22 History cyanocobalamin (vitamin B-12) 1,000 mcg PO DAILY 04/11/22 05/07/22 04/29/22 History 1,000 mcg capsule ferrous sulfate 325 mg (65 mg 325 mg PO DAILY 04/11/22 05/07/22 04/29/22 History iron) tablet (FeroSul) hydrochlorothiazide 12.5 mg tablet 12.5 mg PO DAILY 04/11/22 05/07/22 04/29/22 History lamotrigine 100 mg disintegrating 100 mg PO BEDTIME 04/11/22 05/07/22 04/28/22 History tablet (Lamictal ODT) metoprolol tartrate 100 mg tablet 100 mg PO BID 04/11/22 05/07/22 04/29/22 History nortriptyline 10 mg capsule 20 mg PO BEDTIME cap 04/11/22 05/07/22 04/28/22 History sucralfate 1 gram tablet 1 g PO QID tab 04/11/22 05/07/22 04/29/22 History tamsulosin 0.4 mg capsule 0.4 mg PO DAILY 04/11/22 05/07/22 04/29/22 History topiramate 50 mg tablet 50 mg PO DAILY tab 06/12/0205/07/22 04/29/22 History vitamins A,C,F-ijsg-dhfwuh 14,320 1 cap PO BID 04/11/22 05/07/22 04/29/22 History unit-226 mg-200 unit capsule (ICaps AREDS) sennosides 8.6 mg-docusate sodium 1 tab-cap PO BID #30 tab 04/24/22 04/29/22 04/29/22 Rx 50 mg tablet (Senna with Docusate Sodium) amlodipine 10 mg tablet 10 mg PO DAILY #60 tab 05/04/22 05/07/22 Unknown Rx amoxicillin 500 mg-potassium 1 tab PO BID #10 tab 05/04/22 05/07/22 Unknown Rx clavulanate 125 mg tablet (Augmentin) hydralazine 10 mg tablet 10 mg PO BID #60 tab 05/04/22 05/07/22 Unknown Rx Allergies Allergy/AdvReac Type Severity Reaction Status Date / Time oxycodone Allergy ADR-Halluci Verified 05/12/22 19:53 nating pregabalin Allergy ALGY-Hives Verified 05/12/22 19:53 Grspdxl-YCF-VeO Reductase Allergy ADR-Cramping Verified 05/12/22 19:53 Inhibitor of the Muscles PFSH Acute PFSH: Medical History (Updated 05/13/22 @ 05:17 by Daja Javier MD) MARAL (acute kidney injury) Dehydration H/O traumatic brain injury History of diverticulitis History of recurrent UTI (urinary tract infection) Hypokalemia Hypovolemia Ileus Pneumonia Sepsis Surgical History H/O hemorrhoidectomy X3 H/O partial cystectomy (~04/20/22) H/O shoulder surgery right H/O sinus surgery H/O vascular surgery 5 on right leg and 2 on left History of ankle surgery right -due to fracture History of cataract surgery bilateral History of colonoscopy with polypectomy 2019 History of esophagogastroduodenoscopy (EGD) 2019 S/P insertion of spinal cord stimulator S/P laparoscopic-assisted sigmoidectomy (~04/20/22) Family History Mother , at age 83 No problems noted. Father , at age 78 Alzheimer's dementia Social History Smoking and tobacco status: former smoker Alcohol intake: never Marital status: Current occupational status: disabled History of recent travel: No Vitals/I&O/Wt Last Vital Signs Temp 98.1 F 05/12/22 19:49 Pulse 0 L 05/13/22 03:22 Resp 17 05/13/22 01:47 BP 128/76 05/13/22 01:47 Pulse Ox 100 05/13/22 01:47 05/12/22 05/12/22 05/13/22 14:59 22:59 06:59 Intake Total 1000 / 1000 Balance 1000 / 1000 Weight last 48 hrs Weight 58.876 kg Weight 59.874 kg Physical Exam Narrative: GEN: Awake, alert and oriented CVS: S1S2 N RS: CTA B/L except crackles over RUL 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 Moderate diffuse small bowel distension with probable gradual transition in the anterior upper abdomen. Findings suggest small bowel obstruction, possibly due to adhesion, and appears similar to prior exam. No free air, pneumatosis or suspicious bowel wall thickening however assessment is limited due to lack of contrast. Evidence of rectal anastomosis however no obvious obstruction is present at this level. Surgical consultation should be considered. 2. Other nonacute findings as described. Laboratory Results WBC 15.2 10^3/uL (4.0-10.0) H 05/12/22 21:25 RBC 4.31 10^6/uL (4.1-5.3) 05/12/22 21:25 Hgb 11.9 g/dL (11.7-16.6) 05/12/22 21:25 Hct 37.5 % (42.0-52.0) L 05/12/22 21:25 MCV 87.0 fl (80-94) 05/12/22 21:25 MCH 27.6 pg (28.0-34.0) L 05/12/22 21:25 MCHC 31.7 g/dL (30.0-36.0) 05/12/22 21:25 RDW 14.6 % (12.1-15.1) 05/12/22: Plt Count 642 10^3/cmm (130-400) H 05/12/22 21: MPV 9.1 fL (7.4-10.4) 05/12/22 21:25 Neut % (Auto) 87.3 % 05/12/22: Lymph % (Auto) 7.4 % 05/12/22: [place] % (Auto) 4.2 % 05/12/22 21:25 Eos % (Auto) 0.1 % 05/12/22: Baso % (Auto) 0.1 % 05/12/22: Neut # (Auto) 13.31 10^3/uL (1.8-7.7) H 05/12/22: Lymph # (Auto) 1.1 10^3/uL (0.8-4.8) 05/12/22: [place] # (Auto) 0.6 10^3/uL (0.2-0.9) 05/12/22: Eos # (Auto) 0.0 10^3/uL (0.0-0.8) 05/12/22: Baso # (Auto) 0.0 10^3/uL (0.0-0.1) 05/12/22: Nucleated RBC % (auto) 0 % 05/12/22: Nucleated RBCs # 0.0 /100WBC 05/12/22 21:25 Sodium 136 mmol/L (136-145) 05/12/22 21:25 Potassium 3.6 mmol/L (3.5-5.1) 05/12/22 21: Chloride 98 mmol/L (98-107) 05/12/22 21: Carbon Dioxide 23 mmol/L (22-29) 05/12/22 21:25 Anion Gap 18.6 (5-19) 05/12/22 21:25 BUN 40 mg/dL (8-23) H 05/12/22 21:25 Creatinine 2.1 mg/dL (0.7-1.2) H 05/12/22 21:25 GFR Calculation Not Reportable 05/12/22:25 Glucose 156 mg/dL (65-115) H 05/12/22 21:25 Calculated Osmolality 295 mOsm/kg (285-295) 05/12/22 21:25 Lactate 2.8 mmol/L (0.5-2.2) H 05/12/22 21:25 Calcium 9.9 mg/dL (8.5-10.5) 05/12/22 21:25 Total Bilirubin 0.4 mg/dL (0.15-1.2) 05/12/22 21:25 AST 21 U/L (0-40) 05/12/22 21:25 ALT 16 U/L (0-41) 05/12/22 21:25 Alkaline Phosphatase 186 IU/L (40-130) H 05/12/22 21:25 C-Reactive Protein 140.9 mg/L (0.0-4.9) H 05/12/22 21:25 Total Protein 7.1 g/dL (6.6-8.7) 05/12/22 21:25 Albumin 3.8 g/dL (3.5-5.2) 05/12/22 21:25 Globulin 3.3 g/dL (1.3-4.6) 05/12/22 21:25 Lipase 12 U/L (13-60) L 05/12/22 21:25 Micro: Microbiology 05/13/22 00:24 C.difficile Toxin B Gene (PCR) - Final Stool - Stool Aspirate 05/13/22 00:24 Stool Lactoferrin - Final Stool A&P Assessment and plan (1) Small bowel obstruction: Status: Acute (2) Dehydration: Status: Acute (3) MARAL (acute kidney injury): Status: Acute Plan Imaging with Moderate diffuse small bowel distension with probable gradual transition in the anterior upper abdomen. 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
--- NOTE | 2022-05-13 05:14 | XRR_ITS ---
PROCEDURE INFORMATION: Exam: XR Chest Exam date and time: 05/13/2022 10:13 AM Age: 77 years old Clinical indication: Shortness of breath; Additional info: Follow up pmeumonia TECHNIQUE: Imaging protocol: Radiologic exam of the chest. Views: 1 view. COMPARISON: CR (CHEST, ) 05/01/2022 3:31 AM FINDINGS: Tubes, catheters and devices: NG tube is present extending to the mid esophagus. The distal side hole is just below the level of the mary. This tube should be advanced at least 16 cm. There is an electronic stimulator wire in place extending to the mid dorsal spine. Lungs: Unremarkable. No consolidation. Pleural spaces: Unremarkable. No pleural effusion. No pneumothorax. Heart/Mediastinum: Unremarkable. No cardiomegaly. Bones/joints: Unremarkable. XR/XR chest 1V portable [id number] IMPRESSION: 1. Negative for acute abnormality. 2. NG tube is in the mid esophagus requires repositioning 3. Electronic stimulator wire mid dorsal spine
[2022-05-13] MEDS: piperacillin-tazobactam 3.375 GM in sodium chloride 0.9% (plus) 50 ML IV ×3 (05:44→20:23)
[2022-05-13] MEDS: metoprolol tartrate 50 mg Tablet 100 MG PO ×2 (09:27→18:13)
[2022-05-13] MEDS: tamsulosin 0.4 mg Capsule PO (09:27)
[2022-05-13] MEDS: topiramate 25 mg Tablet 50 MG PO (09:27)
[2022-05-13] MEDS: aspirin 81 mg EC Tablet PO (09:27)
--- NOTE | 2022-05-13 09:31 | PM.CONSULT ---
Providers/Reason For Consult Consulting Physician/Specialty*: Dr. Jed Gilliam, DO Reason for Consult*: Small bowel obstruction Attending Physician: Tierra Piña MD History of Present Illness History of Present Illness Eder Murphy is a very pleasant 77 year old male who presents to the hospital with a 2-day history of abdominal distention nausea and vomiting. Apparently 2 days ago he was able to eat and keep his food down fine. He denies any fever or chills. He has diffuse abdominal pain from the distention but no focal pain. Palpation makes the pain worse. Nothing makes the pain better. The pain does not radiate. He has been having bowel movements and even had a liquid bowel movement, with NG tube in place, while I was in the room with him. Denies any hematochezia or melena. He had a laparoscopic sigmoid colectomy as well as bladder repair for diverticulitis complicated by colovesicular fistula on 04/20/2022. This is his second admission since then for bowel obstruction. He denies hematemesis. Review of Systems General: Reports: 10 or more systems reviewed and unremarkable except in HPI and below Medications/Allergies Home Medications Medication Instructions Recorded Confirmed Last Taken Type acetaminophen 500 mg tablet 500 mg PO Q6H PRN #24 tab 06/18/21 05/07/22 Unknown Rx lidocaine 5 % topical patch 1 patch TOPICAL DAILY PRN #20 ea 06/18/21 05/07/22 Unknown Rx hydrocodone 5 mg-acetaminophen 325 1 tab PO Q6H PRN #14 tab 04/10/22 05/07/22 04/29/22 Rx mg tablet ondansetron 4 mg disintegrating 4 mg PO Q6H PRN #14 tab 04/10/22 05/07/22 04/29/22 Rx tablet alendronate 70 mg tablet 70 mg PO Q7D tab 04/11/22 05/07/22 04/25/22 History aspirin 81 mg tablet,delayed 81 mg PO DAILY 04/11/22 05/07/22 04/29/22 History release cetirizine 10 mg tablet (All Day 10 mg PO DAILY PRN 04/11/22 05/07/22 04/19/22 History Allergy (cetirizine)) clopidogrel 75 mg tablet 75 mg PO DAILY 04/11/22 05/07/22 04/29/22 History cyanocobalamin (vitamin B-12) 1,000 mcg PO DAILY 04/11/22 05/07/22 04/29/22 History 1,000 mcg capsule ferrous sulfate 325 mg (65 mg 325 mg PO DAILY 04/11/22 05/07/22 04/29/22 History iron) tablet (FeroSul) hydrochlorothiazide 12.5 mg tablet 12.5 mg PO DAILY 04/11/22 05/07/22 04/29/22 History lamotrigine 100 mg disintegrating 100 mg PO BEDTIME 04/11/22 05/07/22 04/28/22 History tablet (Lamictal ODT) metoprolol tartrate 100 mg tablet 100 mg PO BID 04/11/22 05/07/22 04/29/22 History nortriptyline 10 mg capsule 20 mg PO BEDTIME cap 04/11/22 05/07/22 04/28/22 History sucralfate 1 gram tablet 1 g PO QID tab 04/11/22 05/07/22 04/29/22 History tamsulosin 0.4 mg capsule 0.4 mg PO DAILY 04/11/22 05/07/22 04/29/22 History topiramate 50 mg tablet 50 mg PO DAILY tab 04/11/22 05/07/22 04/29/22 History vitamins A,C,B-hjsl-kfqxsg 14,320 1 cap PO BID 04/11/22 05/07/22 04/29/22 History unit-226 mg-200 unit capsule (ICaps AREDS) sennosides 8.6 mg-docusate sodium 1 tab-cap PO BID #30 tab 04/24/22 04/29/22 04/29/22 Rx 50 mg tablet (Senna with Docusate Sodium) amlodipine 10 mg tablet 10 mg PO DAILY #60 tab 05/04/22 05/07/22 Unknown Rx amoxicillin 500 mg-potassium 1 tab PO BID #10 tab 05/04/22 05/07/22 Unknown Rx clavulanate 125 mg tablet (Augmentin) hydralazine 10 mg tablet 10 mg PO BID #60 tab 05/04/22 05/07/22 Unknown Rx Allergies Allergy/AdvReac Type Severity Reaction Status Date / Time oxycodone Allergy ADR-Halluci Verified 05/12/22 19:53 nating pregabalin Allergy ALGY-Hives Verified 05/12/22 19:53 Gwjpdhu-HWZ-NsT Reductase Allergy ADR-Cramping Verified 05/12/22 19:53 Inhibitor of the Muscles Current Medications Generic Name Dose Route Start Last Admin Trade Name Freq PRN Reason Stop Dose Admin Aspirin 81 mg 05/13/22 09:00 05/13/22 09:27 Aspirin 81 Mg Ec Tablet PO 81 mg DAILY DIMITRI Administration Famotidine 20 mg 05/13/22 02:00 05/13/22 02:54 Famotidine 20 Mg/2 Ml Inj IVP 20 mg Q12H DIMITRI Administration Heparin Sodium (Porcine) 5,000 unit 05/13/22 02:00 05/13/22 02:54 Heparin 5,000 Unit/Ml Inj 1 Ml SUBCUT 5,000 unit Q12H DIMITRI Administration Dextrose/Sodium Chloride 1,000 mls @ 100 mls/hr 05/13/22 02:00 05/13/22 02:54 Dextrose 5%-Sod Chloride 0.9% IV 100 mls/hr .Q10H DIMITRI Administration Piperacillin Sod/Tazobactam 50 mls @ 12.5 mls/hr 05/13/22 05:30 05/13/22 05:44 Sod 3.375 gm/ Sodium Chloride IV 12.5 mls/hr Q8H DIMITRI Administration Protocol Metoprolol Tartrate 100 mg 05/13/22 09:00 05/13/22 09:27 Metoprolol Tartrate 50 Mg Tablet PO 100 mg BID DIMITRI Administration Tamsulosin HCl 0.4 mg 05/13/22 09:00 05/13/22 09:27 Tamsulosin 0.4 Mg Capsule PO 0.4 mg DAILY DIMITRI Administration Topiramate 50 mg 05/13/22 09:00 05/13/22 09:27 Topiramate 25 Mg Tablet PO 50 mg DAILY DIMITRI Administration PFSH Acute PFSH: Medical History MARAL (acute kidney injury) Dehydration H/O traumatic brain injury History of diverticulitis History of recurrent UTI (urinary tract infection) Hypokalemia Hypovolemia Ileus Pneumonia Sepsis Surgical History H/O hemorrhoidectomy X3 H/O partial cystectomy (~04/20/22) H/O shoulder surgery right H/O sinus surgery H/O vascular surgery 5 on right leg and 2 on left History of ankle surgery right -due to fracture History of cataract surgery bilateral History of colonoscopy with polypectomy 2019 History of esophagogastroduodenoscopy (EGD) 2019 S/P insertion of spinal cord stimulator S/P laparoscopic-assisted sigmoidectomy (~04/20/22) Family History Mother , at age 83 No problems noted. Father , at age 78 Alzheimer's dementia Social History Smoking and tobacco status: former smoker Alcohol intake: never Marital status: Current occupational status: disabled History of recent travel: No Vitals/I&O/Wt Last Vital Signs Temp 98.0 F 05/13/22 08:00 Pulse 109 H 05/13/22 08:00 Resp 18 05/13/22 04:00 BP 121/86 05/13/22 08:00 Pulse Ox 97 05/13/22 08:00 05/12/22 05/13/22 05/13/22 22:59 06:59 14:59 Intake Total 1000 / 1000 Balance 1000 / 1000 Weight last 48 hrs Weight 131 lb 11.2 oz Weight 129 lb 12.8 oz Weight 132 lb Physical Exam Narrative: General : Patient is well developed , no acute distress, oriented x3 Head : Normal cephalic, a-traumatic. Ears : Pinnae and external canal are normal. Hearing is normal. Eyes : PERRLA, Sclera and injection are normal. No conjunctival discharge. Nose : Mucous membranes are without erythema. Throat : buccal mucosa is normal, gums are without significant recession or hypertrophy. Lungs : Equal chest rise bilaterally, no use of accessory muscles, trachea is midline. Cor : Rate and rhythm are normal. Abdomen : Soft, moderately distended, NT, no g/r/m Extremities : No edema, no cyanosis or clubbing, dorsalis pedis pulses are present bilaterally, non-tender to palpation of calves. Upper extremities are normal bilaterally. Back : non-tender to palpation, no CVA tenderness. Neuro : CN II - XII intact, Upper and lower extremities have equal and full strength Data : 05/12/22 21:25 05/12/22 21:25 Micro: Microbiology 05/13/22 06:14 Blood Culture - Preliminary Blood SPECIMEN COLLECTED 05/13/22 06:14 Blood Culture - Preliminary Blood SPECIMEN COLLECTED 05/13/22 00:24 C.difficile Toxin B Gene (PCR) - Final Stool - Stool Aspirate 05/13/22 00:24 Stool Lactoferrin - Final Stool A&P Assessment and plan (1) Partial small bowel obstruction: Status: Acute Plan N.p.o. NG tube to low intermittent suction IV fluids Aggressive electrolyte replacement No acute surgical intervention at this time. Hopefully he can be successfully treated with conservative management. 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
--- NOTE | 2022-05-13 11:18 | PC.NURSE ---
At 1100 patient was up to BSC and NG was unintentionally pulled completely out. Dr. Piña notified. Order to replace NG tube given verbally.
--- NOTE | 2022-05-13 11:30 | PC.NURSE ---
lovell catheter attempted. Able to easily pass tubing. No urine appeared in the drainage system. Patient urinated as lovell being removed. 2nd attempt, able to pass catheter without any resistance. Patient c/o pain after balloon inflated. patient stated it was painful and not in the right place . catheter removed at patient's request.
--- NOTE | 2022-05-13 12:12 | XRR_ITS ---
PROCEDURE INFORMATION: Exam: XR Abdomen Exam date and time: 05/13/2022 1:21 PM Age: 77 years old Clinical indication: Other: Ng placement; Additional info: Ng tube placement TECHNIQUE: Imaging protocol: Radiologic exam of the abdomen. Views: Frontal supine view of the abdomen. 1 View. COMPARISON: CR (ABDOMEN, ) 05/13/2022 1:56 AM FINDINGS: Tubes, catheters and devices: Electronic stimulator in place in the left lower quadrant the lead extends above the diaphragm. There is a NG tube in place extending into the fundus of the stomach. Gastrointestinal tract: Multiple gas-filled bowel loops in a nonspecific pattern. Bones/joints: Lumbar spine shows severe osteoarthritis with sclerosis, intervertebral disc space narrowing, and bone spurs. XR/XR KUB portable [id number] IMPRESSION: 1. No acute findings. 2. NG tube is in the fundus of the stomach. 3. Severe osteoarthritis lumbar spine. 4. Electronic stimulator left lower quadrant
--- NOTE | 2022-05-13 14:09 | PM.MISC ---
Miscellaneous Note Note: Conservative management, this morning NG tube slipped out Will place new NG tube to low intermittent suction Abdomen is soft He had 1 liquid stool this morning is at the bedside No active abdominal pain S1, S2 No active stridor or wheezing Doing well on room air Awake and alert at the bedside Abdomen is soft Bowel sounds sluggish Bowel sounds present Surgical site showing good signs of granulation tissue no sign of cellulitis Assessment and plan Recurrent SBO NG to low intermittent suction Continue IV fluid hydration Electrolyte replenishment Patient had 1 bowel movement this morning He is feeling better No active shortness of breath Appreciate general surgery recommendations Will start TPN tomorrow if no significant signs of improvement Full code N.p.o. DVT prophylaxis:Heparin DC zosyn rasheed no active signs of infection , CXR clear , repeat abd exam and kub for now
[2022-05-13] MEDS: lidocaine 1% 5 ML in potassium chloride premix 100 ML 25 ML IV (14:56)
--- NOTE | 2022-05-13 19:11 | PC.NURSE ---
Patient had 3 liquid brown stools with streaks of blood early in the shift. Patient had an additional 3 soft brown stools. One mixed with urine.
[2022-05-13] MEDS: nortriptyline 10 mg Capsule 20 MG PO (20:22)
[2022-05-13] MEDS: dextrose 5%-sod chloride 0.9% 1,000 ML 30 ML IV (21:38)
[2022-05-13 22:59] LABS: Urine Appearance Cloudy (CLEAR); Urine Color Red (Yellow); pH Urine 5 (5-7)
[2022-05-13 23:00] LABS: Add Urine Microscopic? YES; Bilirubin Urine 1+ (Negative); Blood Urine 3+ (Negative); Glucose Urine UA Norm (Normal); Ketones Urine Negative (Negative); Leukocyte Esterase Urine 2+ (Negative); Nitrate Urine Negative (Negative); Protein Urine 2+ (Negative); Urobilinogen Urine Norm (Negative)
[2022-05-13 23:01] LABS: Bacteria Urine 3+ /hpf; RBC Urine 50-80 /hpf (0-2); WBC Urine 55-80 /hpf (0-5)
[2022-05-13 23:02] LABS: Add Urine Culture? Yes; Mucus Urine TRACE /hpf
[2022-05-14] MEDS: LORazepam 2 mg/mL INJ 1 mL 0.5 MG IVP ×2 (02:52→20:22)
[2022-05-14] MEDS: heparin 5,000 unit/mL INJ 1 mL 5000 UNIT SUBCUT ×2 (02:53→14:24)
[2022-05-14] MEDS: famotidine 20 mg/2 mL INJ IVP ×2 (02:53→14:23)
--- NOTE | 2022-05-14 04:00 | XRR_ITS ---
PROCEDURE INFORMATION: Exam: XR Abdomen Exam date and time: 05/14/2022 4:36 AM Age: 77 years old Clinical indication: Condition or disease; Other: Ileus TECHNIQUE: Imaging protocol: Radiologic exam of the abdomen. Views: Frontal supine view of the abdomen. 1 View. COMPARISON: CR (ABDOMEN, ) 05/13/2022 1:21 PM FINDINGS: Tubes, catheters and devices: Nasogastric tube is in good position. Electronic stimulation device overlies the left side of the abdomen. Gastrointestinal tract: Interval reduction in number and size of dilated bowel loops. Vasculature: Left iliac stent. Bones/joints: Unremarkable. XR/XR KUB portable [id number] IMPRESSION: 1. Nasogastric tube is in good position. 2. Interval reduction in number and size of dilated bowel loops.
[2022-05-14 04:03] VITALS: BP 124/80; PULSE 89; RESP 18; TEMP 36.6; O2SAT 95
[2022-05-14 04:49] LABS: Hematocrit 38.9 % (42.0-52.0); Hemoglobin 12.1 g/dL (11.7-16.6); Mean Corpuscular HGB Conc 31.1 g/dL (30.0-36.0); Mean Corpuscular Hemoglobin 27.6 pg (28.0-34.0); Mean Corpuscular Volume 88.8 fl (80-94); Mean Platelet Volume 9.5 fL (7.4-10.4); Nucleated Red Blood Cells % 0 %; Platelet Count 526 10^3/cmm (130-400); Red Blood Count 4.38 10^6/uL (4.1-5.3); Red Cell Distribution Width 14.7 % (12.1-15.1); White Blood Count 6.8 10^3/uL (4.0-10.0)
[2022-05-14 05:19] LABS: Lactic Sepsis W/Reflex 1.3 mmol/L (0.5-2.2)
[2022-05-14 05:21] LABS: Alanine Aminotransferase 13 U/L (0-41); Albumin Level 3.3 g/dL (3.5-5.2); Alkaline Phosphatase 158 IU/L (40-130); Anion Gap 21.7 (5-19); Aspartate Amino Transferase 14 U/L (0-40); Blood Urea Nitrogen 41 mg/dL (8-23); Calcium 8.8 mg/dL (8.5-10.5); Carbon Dioxide 19 mmol/L (22-29); Chloride 105 mmol/L (98-107); Globulin 2.7 g/dL (1.3-4.6); Glucose 105 mg/dL (65-115); Magnesium 1.9 mg/dL (1.7-2.3); Osmolality Calculated 304 mOsm/kg (285-295); Phosphorus 3.8 mg/dL (2.5-4.5); Potassium 3.7 mmol/L (3.5-5.1); Sodium 142 mmol/L (136-145); Total Bilirubin 0.5 mg/dL (0.15-1.2)
[2022-05-14 05:23] LABS: Procalcitonin 0.44 ng/mL (0-0.5)
[2022-05-14 05:41] LABS: Basophils % 0.3 %; Eosinophils % 0.1 %; Lymphocytes # 0.9 10^3/uL (0.8-4.8); Lymphocytes % 13.7 %; Monocytes # 0.5 10^3/uL (0.2-0.9); Monocytes % 6.9 %; Neutrophils # 5.35 10^3/uL (1.8-7.7)
[2022-05-14] MEDS: piperacillin-tazobactam 3.375 GM in sodium chloride 0.9% (plus) 50 ML IV (05:51)
[2022-05-14 06:00] VITALS: PULSE 86
[2022-05-14 07:49] VITALS: BP 130/82; PULSE 92; RESP 18; TEMP 36.6; O2SAT 98
[2022-05-14] MEDS: metoprolol tartrate 50 mg Tablet 100 MG PO (09:10)
[2022-05-14] MEDS: topiramate 25 mg Tablet 50 MG PO (09:12)
--- NOTE | 2022-05-14 10:35 | PC.NURSE ---
0900 meds crushed and given via NG tube.
--- NOTE | 2022-05-14 10:46 | PC.CHAP ---
Pastoral Care Encounter/Spiritual Assessment Type of Contact [] Declined showroom manager visit [] Patient/Family/Request visit [] Outpatient visit [] Follow-up visit [] Physician referral [] Code/Alert [x] Routine visit [] Staff referral [] Actively dying [x] Patient sleeping [] Family support [] [] Out of room [] Palliative care [] [] Receiving care in room [] Pre-surgical visit [] Trauma [] Long length of stay [] ICU visit [] Other: Relational/Emotional Strength [] Patient feels connected with others/family/visitors/staff [] Distress [] Loneliness/isolation [] Abandonment Spirituality of Patient [] Person of [place] [] Attends Episcopalian of their [place] [] Believes in Prayer [] Reads Bible or Baptist materials [] There are Spiritual issues to be addressed Regulatory Technician Interventions [] Prayer [] Active listening [] Non-anxious presence [] Spiritual/emotional support [] Crisis/trauma care [] Spiritual counseling [] Bereavement support [] Provided bereavement packet [] Provided Bible/devotional materials [] Provided toy/stuffed animal, coloring book to patient or family member [] Provided Communion [] Anointing/Reasnor [] Salvation [x] Completed spiritual assessment [] Other: Impact on Illness or Injury [] Angry [] Fearful [] Anxious [] Often cries [] Exhaustion [] Unable to work [] Unable to attend orthodoxy [] Unable to walk/stand [] Unable to read [] Unable to drive [] Unable to eat/drink [] Unable to sleep [] Unable to be with family [] Patient intubated [] Other: Summary Time spent with patient
--- NOTE | 2022-05-14 10:55 | PC.NURSE ---
verbal instructions received from provider at bedside to dc telemetry monitoring.
[2022-05-14 11:07] VITALS: BP 131/89; PULSE 69; RESP 14; TEMP 36.5; O2SAT 98
--- NOTE | 2022-05-14 11:23 | PM.PN ---
Subjective Subjective: Patient reports that he has no pain or nausea. Continues to have liquid stools and gastritis. Vitals/I&O/Wt Last Vital Signs Temp 97.7 F 05/14/22 11:07 Pulse 69 05/14/22 11:07 Resp 14 05/14/22 11:07 BP 131/89 05/14/22 11:07 Pulse Ox 98 05/14/22 11:07 05/13/22 05/14/22 05/14/22 22:59 06:59 14:59 Intake Total 1155 / 1685 50 / 1735 50 / 50 Output Total 100 / 100 Balance 1155 / 1685 -50 / 1635 50 / 50 Weight last 48 hrs Weight 131 lb 11.2 oz Weight 129 lb 12.8 oz Weight 132 lb Physical Exam Narrative: General: no acute distress, awake alert and oriented x3 Abdomen: Soft, nontender, mild distention, no guarding rebound or masses Urinary Catheter Management: Valdez: Cath Placed During This Visit: yes Reason for Continuing Indwelling Catheter: Acute Urinary Retention or Obstruction Urinary Catheter Date of Insertion: 05/13/22 Urinary Catheter Time of Insertion: 20:33 Data : 05/14/22 04:16 05/14/22 04:16 Micro: Microbiology 05/13/22 06:14 Blood Culture - Preliminary Blood NEGATIVE TO DATE 05/13/22 06:14 Blood Culture - Preliminary Blood NEGATIVE TO DATE 05/13/22 00:24 Enteric Pathogens (PCR) - Final Stool Routine Collection A&P Assessment and plan (1) Partial small bowel obstruction: Status: Acute Plan DC NG Clear liquid diet IV fluids Aggressive electrolyte replacement No acute surgical intervention at this time. Hopefully he can be successfully treated with conservative management. Medical management per hospitalist Attestations Medical Necessity Statement*: Patient requires at least 1-2 more nights in the hospital for diet management, IV fluids and electrolyte replacements Coding Level of Care Code Acute Dairy Technician for [facility] Diagnoses Partial small bowel obstruction K56.600
--- NOTE | 2022-05-14 11:32 | PC.NURSE ---
Dr. Gilliam removed NG tube at approx 1120. Patient given water.
--- NOTE | 2022-05-14 13:15 | P.PN_ITS ---
Subjective Subjective: This morning patient patient looks dehydrated Malnourished He had 1 bowel movement this morning NG tube was clamped Which was later discontinued by the surgeon Started on clear liquid No need of TPN for now Continue gentle fluid hydration, I have asked nurse to increase IV fluid to 100 mL/h His Uoutput is also on the lower side Vitals/I&O/Wt Last Vital Signs Temp 97.7 F 05/14/22 11:07 Pulse 69 05/14/22 11:07 Resp 14 05/14/22 11:07 BP 131/89 05/14/22 11:07 Pulse Ox 98 05/14/22 11:07 05/13/22 05/14/22 05/14/22 22:59 06:59 14:59 Intake Total 1155 / 1685 50 / 1735 50 / 50 Output Total 100 / 100 200 / 200 Balance 1155 / 1685 -50 / 1635 -150 / -150 Weight last 48 hrs Weight 59.738 kg Weight 58.876 kg Weight 59.874 kg Physical Exam Narrative: Patient's abdomen is soft Bowel sounds are sluggish however present Abdomen is nontender no signs of peritonitis or rigidity S1, S2 Currently saturating well on room air is at the bedside Patient is awake and alert Nonfocal neuro exam Does look dehydrated and malnourished Urinary Catheter Management: Valdez: Cath Placed During This Visit: yes Reason for Continuing Indwelling Catheter: Acute Urinary Retention or Obstruction Urinary Catheter Date of Insertion: 05/13/22 Urinary Catheter Time of Insertion: 20:33 Data : 05/14/22 04:16 05/14/22 04:16 Micro: Microbiology 05/13/22 06:14 Blood Culture - Preliminary Blood NEGATIVE TO DATE 05/13/22 06:14 Blood Culture - Preliminary Blood NEGATIVE TO DATE 05/13/22 00:24 Enteric Pathogens (PCR) - Final Stool Routine Collection A&P Assessment and plan (1) Partial small bowel obstruction: Status: Acute (2) MARAL (acute kidney injury): Status: Acute (3) Dehydration: Status: Acute (4) Small bowel obstruction: Status: Acute (5) Elevated PSA: Status: Acute (6) Sepsis: Status: Acute Plan Partial SBO Patient is having bowel movement NG tube discontinued on 05/14 Patient was started on clear liquid diet Looks dehydrated malnourished Low urine output I have asked Venecia to increase IV fluid rate 200 mill per hour No active emesis I do believe we will be able to manage him conservatively Recurrent SBO Continue Valdez catheter Abnormal white count noted Patient was diagnosed with sepsis by the admitting physician, I do believe his symptoms and signs were related to dehydration and SBO, urine culture is pending so far blood cultures negative I have discontinued his Zosyn, Dehydration: Continue IV fluid hydration Replenish electrolytes Patient is full code Clear liquid diet DVT prophylaxis on board No need of TPN for now Attestations Medical Necessity Statement*: Discharge in next 24 to 30 hours Time Spent in Patient Care: 30 Coding Level of Care Code Acute Dba Manager for g Fwd Diagnoses Partial small bowel obstruction K56.600 MARAL (acute kidney injury) N17.9 Dehydration E86.0 Small bowel obstruction K56.609 Elevated PSA R97.20 Sepsis A41.9
--- NOTE | 2022-05-14 14:15 | PC.NURSE ---
patient pulled out IV cath found intact patient reminded not to pull on things patient verbalizes understanding however needs reminding often
[2022-05-14] MEDS: potassium chloride ER 20 mEq Tablet 40 MEQ PO (14:22)
[2022-05-14 15:28] VITALS: BP 135/80; PULSE 66; RESP 15; TEMP 36.5; O2SAT 96
[2022-05-14] MEDS: metoprolol tartrate 50 mg Tablet 25 MG PO (17:55)
[2022-05-14] MEDS: dextrose 5%-sod chloride 0.9% 1,000 ML 100 ML IV (19:22)
[2022-05-14 20:00] VITALS: BP 131/85; PULSE 76; RESP 18; TEMP 36.9; O2SAT 96
[2022-05-14] MEDS: nortriptyline 10 mg Capsule 20 MG PO (21:51)
[2022-05-15] VITALS (7 sets, daily range): BP systolic 126–164; BP diastolic 73–87; PULSE 61–84; RESP 16–18; TEMP 35.8–36.9; O2SAT 91–97
[2022-05-15] MEDS: heparin 5,000 unit/mL INJ 1 mL 5000 UNIT SUBCUT (01:49)
[2022-05-15] MEDS: famotidine 20 mg/2 mL INJ IVP (01:49)
--- NOTE | 2022-05-15 03:35 | PC.NURSE ---
Pt very confused continually trying to get out of bed. Pt pulling on lovell and IV lines. Pt high fall risk Bed alarm on. This nurse attempted to redirect pt encouraging pt to stay in bed. Pt teaching was done on pt being a high fall risk. Pt refuses redirection continually attempting to get out of bed. Pt now lying in bed. Bed alarm on. Will cont to monitor.
[2022-05-15 04:02] LABS: Basophils % 0.3 %; Eosinophils % 0.3 %; Hematocrit 30.7 % (42.0-52.0); Hemoglobin 9.9 g/dL (11.7-16.6); Lymphocytes # 1.2 10^3/uL (0.8-4.8); Lymphocytes % 16.6 %; Mean Corpuscular HGB Conc 32.2 g/dL (30.0-36.0); Mean Corpuscular Hemoglobin 27.5 pg (28.0-34.0); Mean Corpuscular Volume 85.3 fl (80-94); Mean Platelet Volume 9.3 fL (7.4-10.4); Monocytes # 0.6 10^3/uL (0.2-0.9); Monocytes % 7.9 %; Neutrophils % 74.5 %; Nucleated Red Blood Cells % 0 %; Platelet Count 478 10^3/cmm (130-400); Red Cell Distribution Width 14.5 % (12.1-15.1); White Blood Count 7.4 10^3/uL (4.0-10.0)
[2022-05-15 04:27] LABS: Blood Urea Nitrogen 32 mg/dL (8-23); Calcium 8.1 mg/dL (8.5-10.5); Carbon Dioxide 19 mmol/L (22-29); Chloride 113 mmol/L (98-107); Glucose 111 mg/dL (65-115); Osmolality Calculated 306 mOsm/kg (285-295); Sodium 144 mmol/L (136-145)
[2022-05-15 04:28] LABS: Anion Gap 14.9 (5-19); Potassium 2.9 mmol/L (3.5-5.1)
[2022-05-15] MEDS: lidocaine 1% 5 ML in potassium chloride premix 100 ML 25 ML IV (05:31)
[2022-05-15] MEDS: dextrose 5%-sod chloride 0.9% 1,000 ML 100 ML IV (05:43)
[2022-05-15] MEDS: tamsulosin 0.4 mg Capsule PO (08:41)
[2022-05-15] MEDS: metoprolol tartrate 50 mg Tablet 25 MG PO ×2 (08:42→17:01)
[2022-05-15] MEDS: potassium chloride ER 20 mEq Tablet 40 MEQ PO (08:42)
[2022-05-15] MEDS: topiramate 25 mg Tablet 50 MG PO (08:42)
[2022-05-15 09:16] LABS: Magnesium 1.8 mg/dL (1.7-2.3)
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
[2022-05-15] MEDS: LORazepam 2 mg/mL INJ 1 mL 0.5 MG IVP (12:40)
[2022-05-15] MEDS: sodium chlor 0.9% + KCl 20 mEq 20 MEQ/1,000 ML BAG 75 MEQ IV (16:55)
[2022-05-15] MEDS: magnesium oxide 400 mg tablet PO (17:00)
[2022-05-15] MEDS: famotidine 20 mg Tablet PO (17:01)
--- NOTE | 2022-05-15 19:05 | PC.NURSE ---
Report to Binu SPEARS at this time.
[2022-05-15] MEDS: ziprasidone 20 mg/mL SDV 10 MG IM (21:40)
[2022-05-15] MEDS: nortriptyline 10 mg Capsule 20 MG PO (22:25)
[2022-05-15] MEDS: quetiapine 25 mg Tablet 50 MG PO (22:26)
[2022-05-16] VITALS: BP 168/78; PULSE 78; RESP 17; TEMP 37.1; O2SAT 93
[2022-05-16] MEDS: LORazepam 2 mg/mL INJ 1 mL 0.5 MG IVP ×2 (02:52→12:30)
[2022-05-16] MEDS: heparin 5,000 unit/mL INJ 1 mL 5000 UNIT SUBCUT ×2 (02:55→15:07)
[2022-05-16] MEDS: famotidine 20 mg/2 mL INJ IVP ×2 (02:55→15:06)
--- NOTE | 2022-05-16 04:00 | XRR_ITS ---
PROCEDURE INFORMATION: Exam: XR Abdomen Exam date and time: 05/16/2022 6:25 AM Age: 77 years old Clinical indication: Condition or disease; Intestinal condition; Other: Ileus TECHNIQUE: Imaging protocol: Radiologic exam of the abdomen. Views: Frontal supine view of the abdomen. 1 View. COMPARISON: CR (ABDOMEN, ) 05/14/2022 4:36 AM FINDINGS: Gastrointestinal tract: Bowel gas pattern is nonspecific. No mass effect upon the bowel loops. Distal rectal gas. Scattered loops of air filled small bowel none of which are dilated. Vasculature: Iliac stents Bones/joints: No acute process within the osseous structures of the spine or pelvis. Other findings: No appreciable calcifications XR/XR KUB portable [id number] IMPRESSION: Bowel gas pattern is nonspecific.
[2022-05-16 05:51] LABS: Anion Gap 17.9 (5-19); Blood Urea Nitrogen 28 mg/dL (8-23); Carbon Dioxide 18 mmol/L (22-29); Chloride 114 mmol/L (98-107); Glucose 81 mg/dL (65-115); Osmolality Calculated 307 mOsm/kg (285-295); Potassium 3.9 mmol/L (3.5-5.1); Sodium 146 mmol/L (136-145)
--- NOTE | 2022-05-16 05:57 | PC.NURSE ---
Patient has been agitated on and off through out the night. Attempting to pull on catheter and IV tubing, crawl out of bed, get on all fours and attempt to stand up. Has been grabbing at staff and threatening physical harm to them when trying to redirect his behaviors or do any care, was given Seroquel and Geodon. patient slept for about 2 hours. Hallucinating and seeing people and objects that are not in room. Patient slept for about 2 hours, woke up still confused and hallucinating, was agressive with staff and uncooperative with staff trying to redirect behaviors. Once patient started to get physical, patient recieved Ativan. Lab attempted to draw morning labs and was unsuccessful, staff nurse was able to get morning labs. Patient is currently in bed but is restless, continues to hallucinate and carry on conversation and acting out working on a vehicle. Staff will continue to closely monitor patient in order to ensure patients safety.
[2022-05-16 07:21] VITALS: BP 151/86; PULSE 116; RESP 18; TEMP 36.8; O2SAT 97
[2022-05-16 09:36] VITALS: PULSE 80; RESP 17; O2SAT 97
[2022-05-16] MEDS: metoprolol tartrate 50 mg Tablet 25 MG PO ×2 (09:55→17:26)
[2022-05-16] MEDS: magnesium oxide 400 mg tablet PO ×2 (09:55→17:25)
[2022-05-16] MEDS: topiramate 25 mg Tablet 50 MG PO (09:55)
[2022-05-16] MEDS: tamsulosin 0.4 mg Capsule PO (09:56)
[2022-05-16] MEDS: famotidine 20 mg Tablet PO ×2 (09:56→17:25)
--- NOTE | 2022-05-16 11:04 | CT_ITS ---
WS: [id number] CT HEAD TECHNIQUE: Noncontrast CT of the head obtained from the skullbase to the vertex. CLINICAL INFORMATION: AMS COMPARISON: None. DLP: 1150.[address] scans at [facility] use at least one of these dose optimization techniques: automated e xposure control; mA and/or kV adjustment per patient size (includes targeted exams where dose is matc hed to clinical indication); or iterative reconstruction. FINDINGS: No evidence of intracranial hemorrhage or mass effect. Ventricular system and basal cisterns are ordaz nt. Moderate small vessel changes with mild parenchymal volume loss. Chronic lacunar infarcts in the bilateral basal ganglia. Intracranial vascular calcification. No extra-axial fluid collections. Incid ental arachnoid cyst LEFT middle cranial fossa measuring 1.8 x 3.3 cm Paranasal sinuses and mastoid air cells are well aerated. .Normal visualized soft tissues. CT/CT head wo con* [id number] IMPRESSION: 1. No evidence of intracranial hemorrhage or mass effect. 2. Moderate small vessel changes with mild parenchymal volume loss. 3. Chronic lacunar infarcts in the bilateral basal ganglia. 4. No acute intracranial findings.
[2022-05-16] MEDS: ziprasidone 20 mg/mL SDV 10 MG IM (12:56)
[2022-05-16] MEDS: sodium chlor 0.9% + KCl 20 mEq 20 MEQ/1,000 ML BAG 75 MEQ IV (13:31)
--- NOTE | 2022-05-16 13:49 | PC.SOCIAL ---
Pg 2 IMM Explained to pt's Pg 2 IMM. No questions voiced. Provided pt a copy. Initialed, dated, & timed a copy & placed in chart.
[2022-05-16 15:59] VITALS: BP 155/97; PULSE 58; RESP 18; TEMP 36.6; O2SAT 97
--- NOTE | 2022-05-16 18:59 | P.PN_ITS ---
Subjective Subjective: Seen this morning. Patient has been confused since last night. He does have sundowning. states that he has early dementia from prior to coming to the hospital and requires assistance with some things but not all. But she believes that he was never this confused. Vitals/I&O/Wt Last Vital Signs Temp 97.9 F 05/16/22 15:59 Pulse 58 L 05/16/22 15:59 Resp 18 05/16/22 15:59 BP 155/97 05/16/22 15:59 Pulse Ox 97 05/16/22 15:59 05/16/22 05/16/22 05/16/22 06:59 14:59 22:59 Intake Total 180 / 180 Output Total 625 / 1125 300 / 300 Balance -625 / 691.25 180 / 180 -300 / -120 Physical Exam Narrative: Awake, alert but not oriented. He only knows his name today., Neuro exam nonfocal able to move all 4 extremities Appears dehydrated today. Saturating well on room air Abdomen soft nontender, no guarding or rigidity Surgical scar, no active sign of cellulitis Abdominal sounds are present No signs of edema Urinary Catheter Management: Valdez: Cath Placed During This Visit: yes Reason for Continuing Indwelling Catheter: Acute Urinary Retention or Obstructio n Urinary Catheter Date of Insertion: 05/13/22 Urinary Catheter Time of Insertion: 20:33 Data : 05/15/22 03:51 05/16/22 05:04 A&P Assessment and plan (1) Partial small bowel obstruction: Status: Acute (2) Sepsis: Status: Acute (3) MARAL (acute kidney injury): Status: Acute (4) Dehydration: Status: Acute (5) Small bowel obstruction: Status: Acute Plan 77-year-old male who was recently discharged from the hospital after laparoscopic sigmoid colectomy, partial cystectomy and colonoscopy 04/20 he was discharged after 2 units PRBC transfusion presented to the hospital with chief complaint of recurrent nausea vomiting, this is his second visit, he was discharged on 05/04 after conservative management of SBO/ileus. Antibiotics were given initially and then discontinued. He is having bowel movements daily and doing well. He is tolerating a GI soft diet. Surgery following patient. Dehydration: Continue IV fluid hydration. IV access lost overnight. Nursing attempt to place another 1. We will continue IV fluids. Slight hypernatremia. We will continue on IV fluids. Ileus, partial SBO: Patient is having bowel movement on daily basis, abdomen is soft, advance diet to GI soft today General surgery recommendations appreciated NG tube was discontinued 05/14 Urinary retention, Dr. 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 We will start him on risperidone 0.5 twice daily at this time. We will discontinue ziprasidone and Seroquel. We will see how patient does and tweak medications accordingly. interested in patient taking patient home with home health. Case management working on setting that up. Full code GI soft diet today DVT prophylaxis on board Attestations Medical Necessity Statement*: Patient very confused. Plan to send home with home health once electrolytes are normalized and tolerating a diet. Most likely will plan for discharge soon. Will need to stay in the hospital for 24 to 48 hours due to severe altered mental status. Coding Level of Care Code Acute Glass Installer Technician for [facility] Diagnoses Partial small bowel obstruction K56.600 Sepsis A41.9 MARAL (acute kidney injury) N17.9 Dehydration E86.0 Small bowel obstruction K56.609
[2022-05-16 20:51] VITALS: RESP 22
[2022-05-16] MEDS: morphine 4 mg/mL SDV 1 mL 2 MG IVP (20:51)
[2022-05-16] MEDS: dextrose 5% 1,000 ML 75 ML IV (20:52)
[2022-05-16] MEDS: haloperidol inj 5 mg/mL INJ 1 mL 2 MG IM (21:47)
[2022-05-17] VITALS (7 sets, daily range): BP systolic 119–172; BP diastolic 56–98; PULSE 19–89; RESP 12–18; TEMP 36.4–37.1; O2SAT 91–99
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
[2022-05-17] MEDS: morphine 4 mg/mL SDV 1 mL 2 MG IVP (00:29)
--- NOTE | 2022-05-17 00:38 | PC.NURSE ---
Pt continues to be aggressive and combative with staff. Pt is difficult to redirect. Pt remains in bilateral wrist restraints.
[2022-05-17] MEDS: heparin 5,000 unit/mL INJ 1 mL 5000 UNIT SUBCUT ×2 (01:43→16:18)
[2022-05-17] MEDS: famotidine 20 mg/2 mL INJ IVP ×2 (01:43→16:18)
[2022-05-17 03:50] LABS: Anion Gap 15.5 (5-19); Blood Urea Nitrogen 25 mg/dL (8-23); Calcium 8.3 mg/dL (8.5-10.5); Carbon Dioxide 17 mmol/L (22-29); Chloride 118 mmol/L (98-107); Glucose 109 mg/dL (65-115); Magnesium 1.9 mg/dL (1.7-2.3); Osmolality Calculated 309 mOsm/kg (285-295); Potassium 3.5 mmol/L (3.5-5.1); Sodium 147 mmol/L (136-145)
[2022-05-17 04:02] LABS: Creatine Phosphokinase 34 U/L (39-308)
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
[2022-05-17] MEDS: metoprolol tartrate 50 mg Tablet 25 MG PO ×2 (09:35→17:57)
[2022-05-17] MEDS: famotidine 20 mg Tablet PO ×2 (09:35→17:57)
[2022-05-17] MEDS: topiramate 25 mg Tablet 50 MG PO (09:35)
[2022-05-17] MEDS: tamsulosin 0.4 mg Capsule PO (09:35)
[2022-05-17] MEDS: dextrose 5% 1,000 ML 75 ML IV ×2 (09:36→22:40)
[2022-05-17] MEDS: nortriptyline 10 mg Capsule 20 MG PO (19:53)
[2022-05-17] MEDS: risperiDONE 0.25 mg Tablet 0.5 MG PO (19:53)
[2022-05-18] MEDS: haloperidol inj 5 mg/mL INJ 1 mL 2 MG IM (00:12)
--- NOTE | 2022-05-18 00:21 | PC.NURSE ---
Pt make several attempts to get out of bed and pulling at IV and lovell catheter. Sitter at bedside attempting to redirect pt. Pt becomes more upset and pulls at items more. This RN offered pt a drink and a snack. Pt declined stating I need to get out of here . Denies c/o pain. Call placed to Dr. Ingram to make aware of unable to redirect pt and agitation.
[2022-05-18] MEDS: heparin 5,000 unit/mL INJ 1 mL 5000 UNIT SUBCUT ×2 (01:36→17:47)
[2022-05-18 06:09] VITALS: BP 152/75; PULSE 104; RESP 16; TEMP 36.5; O2SAT 97
[2022-05-18 06:30] LABS: Basophils % 0.4 %; Eosinophils # 0.1 10^3/uL (0.0-0.8); Eosinophils % 0.8 %; Hematocrit 32.3 % (42.0-52.0); Hemoglobin 9.7 g/dL (11.7-16.6); Lymphocytes # 1.8 10^3/uL (0.8-4.8); Lymphocytes % 23.8 %; Mean Corpuscular Hemoglobin 26.9 pg (28.0-34.0); Mean Corpuscular Volume 89.5 fl (80-94); Mean Platelet Volume 9.3 fL (7.4-10.4); Monocytes # 0.5 10^3/uL (0.2-0.9); Monocytes % 6.1 %; Neutrophils # 5.03 10^3/uL (1.8-7.7); Neutrophils % 67.7 %; Nucleated Red Blood Cells % 0 %; Platelet Count 379 10^3/cmm (130-400); Red Blood Count 3.61 10^6/uL (4.1-5.3); Red Cell Distribution Width 14.6 % (12.1-15.1); White Blood Count 7.4 10^3/uL (4.0-10.0)
[2022-05-18 06:48] LABS: Anion Gap 16.1 (5-19); Blood Urea Nitrogen 20 mg/dL (8-23); Calcium 8.2 mg/dL (8.5-10.5); Carbon Dioxide 17 mmol/L (22-29); Chloride 105 mmol/L (98-107); Creatine Phosphokinase 113 U/L (39-308); Glucose 102 mg/dL (65-115); Magnesium 1.5 mg/dL (1.7-2.3); Osmolality Calculated 283 mOsm/kg (285-295); Potassium 3.1 mmol/L (3.5-5.1); Sodium 135 mmol/L (136-145)
[2022-05-18 07:59] VITALS: BP 132/81; PULSE 103; RESP 18; TEMP 36.6; O2SAT 96
--- NOTE | 2022-05-18 08:33 | W.PM.PSYCONS ---
Providers/Reason for Consult Consulting Physican/Specialty*: Aubrey Agarwal Reason for Consult*: Dementia? 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 Ileus treated with conservative management, HAP with broad spectrum abx. Patient seen at bedside for an evaluation to determine further needs. The patient seen alone at bedside had reported that he had surgery recently. He reported his age as 89 and was unable to report an reason he was in the hospital Past Med history: see chart. Pertinent Psychiatric Hx/Social Hx/Fam History/Legal Hx/ all were likely inaccurate and would need to be documented through family. Meds Home Medications and Allergies Home Medications Medication Instructions Recorded Confirmed Last Taken Type acetaminophen 500 mg tablet 500 mg PO Q6H PRN #24 tab 06/18/21 05/13/22 Unknown Rx lidocaine 5 % topical patch 1 patch TOPICAL DAILY PRN #20 ea 06/18/21 05/13/22 Unknown Rx hydrocodone 5 mg-acetaminophen 325 1 tab PO Q6H PRN #14 tab 04/10/22 05/13/22 04/29/22 Rx mg tablet alendronate 70 mg tablet 70 mg PO Q7D tab 04/11/22 05/13/22 04/25/22 History aspirin 81 mg tablet,delayed 81 mg PO DAILY 04/11/22 05/13/22 04/29/22 History release cetirizine 10 mg tablet (All Day 10 mg PO DAILY PRN 04/11/22 05/13/22 04/19/22 History Allergy (cetirizine)) clopidogrel 75 mg tablet 75 mg PO DAILY 04/11/22 05/13/22 04/29/22 History cyanocobalamin (vitamin B-12) 1,000 mcg PO DAILY 04/11/22 05/13/22 04/29/22 History 1,000 mcg capsule ferrous sulfate 325 mg (65 mg 325 mg PO DAILY 04/11/22 05/13/22 04/29/22 History iron) tablet (FeroSul) hydrochlorothiazide 12.5 mg tablet 12.5 mg PO DAILY 04/11/22 05/13/22 04/29/22 History lamotrigine 100 mg disintegrating 100 mg PO BEDTIME 04/11/22 05/13/22 04/28/22 History tablet (Lamictal ODT) metoprolol tartrate 100 mg tablet 100 mg PO BID 04/11/22 05/13/22 04/29/22 History nortriptyline 10 mg capsule 20 mg PO BEDTIME cap 04/11/22 05/13/22 04/28/22 History sucralfate 1 gram tablet 1 g PO QID tab 04/11/22 05/13/22 04/29/22 History tamsulosin 0.4 mg capsule 0.4 mg PO DAILY 04/11/22 05/13/22 04/29/22 History topiramate 50 mg tablet 50 mg PO BEDTIME tab 04/11/22 05/13/22 04/29/22 History vitamins A,C,Z-bvmg-sdqsdm 14,320 1 cap PO BID 04/11/22 05/13/22 04/29/22 History unit-226 mg-200 unit capsule (ICaps AREDS) amlodipine 10 mg tablet 10 mg PO DAILY #60 tab 05/04/22 05/13/22 Unknown Rx hydralazine 10 mg tablet 10 mg PO BID #60 tab 05/04/22 05/13/22 Unknown Rx albuterol sulfate 90 mcg/actuation 2 inh INHALATION QID PRN 05/13/22 05/13/22 Unknown History aerosol inhaler lisinopril 10 mg tablet 10 mg PO DAILY 05/13/22 05/13/22 Unknown History sennosides 8.6 mg-docusate sodium 2 tab-cap PO BEDTIME 05/13/22 05/13/22 Unknown History 50 mg tablet (Senna-S) Allergies Allergy/AdvReac Type Severity Reaction Status Date / Time oxycodone Allergy ADR-Halluci Verified 05/12/22 19:53 nating pregabalin Allergy ALGY-Hives Verified 05/12/22 19:53 Efvyofd-FDW-VvT Reductase Allergy ADR-Cramping Verified 05/12/22 19:53 Inhibitor of the Muscles Current Medications Current Medications Generic Name Dose Route Start Last Admin Trade Name Freq PRN Reason Stop Dose Admin Aspirin 81 mg 05/13/22 09:00 05/13/22 09:27 Aspirin 81 Mg Ec Tablet PO 81 mg DAILY DIMITRI Administration Famotidine 20 mg 05/15/22 18:00 05/17/22 17:57 Famotidine 20 Mg Tablet PO 20 mg BID DIMITRI Administration Heparin Sodium (Porcine) 5,000 unit 05/13/22 02:00 05/18/22 01:36 Heparin 5,000 Unit/Ml Inj 1 Ml SUBCUT 5,000 unit Q12H DIMITRI Administration Dextrose 1,000 mls @ 75 mls/hr 05/16/22 19:15 05/17/22 22:40 D5w IV 75 mls/hr .[id number] DIMITRI Administration Metoprolol Tartrate 25 mg 05/14/22 18:00 05/17/22 17:57 Metoprolol Tartrate 50 Mg Tablet PO 25 mg BID DIMITRI Administration Non-Formulary Medication 100 mg 05/13/22 21:00 05/17/22 19:54 Lamotrigine [Lamictal Odt] PO Not Given BEDTIME DIMITRI Nortriptyline HCl 20 mg 05/13/22 21:00 05/17/22 19:53 Nortriptyline 10 Mg Capsule PO 20 mg BEDTIME DIMITRI Administration Tamsulosin HCl 0.4 mg 05/13/22 09:00 05/17/22 09:35 Tamsulosin 0.4 Mg Capsule PO 0.4 mg DAILY DIMITRI Administration Topiramate 50 mg 05/13/22 09:00 05/17/22 09:35 Topiramate 25 Mg Tablet PO 50 mg DAILY DIMITRI Administration PFSH NPU PFSH: Medical History MARAL (acute kidney injury) Dehydration H/O traumatic brain injury History of diverticulitis History of recurrent UTI (urinary tract infection) Hypokalemia Hypovolemia Ileus Pneumonia Sepsis Surgical History H/O hemorrhoidectomy X3 H/O partial cystectomy (~04/20/22) H/O shoulder surgery right H/O sinus surgery H/O vascular surgery 5 on right leg and 2 on left History of ankle surgery right -due to fracture History of cataract surgery bilateral History of colonoscopy with polypectomy 2019 History of esophagogastroduodenoscopy (EGD) 2019 S/P insertion of spinal cord stimulator S/P laparoscopic-assisted sigmoidectomy (~04/20/22) Family History Mother , at age 83 No problems noted. Father , at age 78 Alzheimer's dementia Social History Smoking and tobacco status: former smoker Alcohol intake: never Marital status: Current occupational status: disabled History of recent travel: No Mental Status Exam MSE Comments: Eder was lying in bed and appeared his stated age. He had reported that his age was 89 years old although he had correctly identified his birthdate. His hygiene appeared poor at this time. There was no evidence of any abnormal involuntary motor movements or tics appreciated. There was no evidence of any tremors. He did appear somewhat guarded and suspicious of the intentions of the visit despite having repeated the stated who I was and what I was doing at the bedside. In regards to his speech it was slow with some periods of increased volume noted he appeared to be somewhat inattentive on interview. He was alert and did not require additional arousal during the interview. His mood was described as all right. His affect was somewhat restricted in range. He did appear to have some problems noted with repetition during examination. He was unable to follow simple three-step commands. He was able to name a pen and a watch. He was unable to describe the details of an interpretation of several different proverbs. He did appear to show evidence of thought derailment. His thoughts did not appear to be very well organized. He was unable to write a sentence nor was he able to understand a simple sentence and follow the directions. He was not alert and oriented to the day the month or the year as he thought it was September 21, 2021. He did not appear to be responding to internal stimuli. There was some evidence of delusional thinking. He was able to recall register only 1 out of 3 words immediately and unable to recall any words after 3 minutes. His attention appeared impaired he is unable to spell the word world backwards. On the the clock drawing test, the patient did not place hands on the clock and neglected most of the left side of the clock initially. Perseveration was noted on clock drawing. Vitals/I&O/Wt Last Vital Signs Temp 97.9 F 05/18/22 07:59 Pulse 103 H 05/18/22 07:59 Resp 18 05/18/22 07:59 BP 132/81 05/18/22 07:59 Pulse Ox 96 05/18/22 07:59 05/17/22 05/18/22 05/18/22 22:59 06:59 14:59 Intake Total 1220 / 2175 Output Total 200 / 200 Balance 1220 / 2175 -200 / 1975 Physical Exam Urinary Catheter Management: Valdez: Cath Placed During This Visit: yes Reason for Continuing Indwelling Catheter: Acute Urinary Retention or Obstruction Urinary Catheter Date of Insertion: 05/13/22 Urinary Catheter Time of Insertion: 20:33 Data NPU : 05/18/22 06:05 05/18/22 06:05 Micro: Microbiology 05/13/22 06:14 Blood Culture - Final Blood NO GROWTH AFTER 5 DAYS 05/13/22 06:14 Blood Culture - Final Blood NO GROWTH AFTER 5 DAYS Microbiology 05/13/22 06:14 Blood Blood Culture - Final NO GROWTH AFTER 5 DAYS 05/13/22 06:14 Blood Blood Culture - Final NO GROWTH AFTER 5 DAYS A&P Assessment and plan (1) Dementia: Status: Acute Plan The patient is 77 year old with what appears to be severe dementia with possible right parietal lobe involvement given performance on clock drawing. He would appear obviously unable to have capacity to manage his own care. He may need placement outside of his home due to safety concerns as he showed poor ability to manage anything independently. Consider seeking placement for patient if family unable to manage him at home. Attestations NPU Medical Necessity Statement*: continue on medicine floor Coding Level of Care Code New Pt Acute Physiotherapy Aide for [facility] Fwd Patient Type New History Problem Focused Exam Problem Focused Medical Decision Making Straight Forward Diagnoses Dementia F03.90
[2022-05-18] MEDS: topiramate 25 mg Tablet 50 MG PO (10:09)
[2022-05-18] MEDS: metoprolol tartrate 50 mg Tablet 25 MG PO ×2 (10:09→18:44)
[2022-05-18] MEDS: tamsulosin 0.4 mg Capsule PO (10:10)
[2022-05-18] MEDS: famotidine 20 mg Tablet PO ×2 (10:10→18:45)
[2022-05-18] MEDS: magnesium sulfate premix 4 GM/100 ML PREMIX IV (10:11)
[2022-05-18] MEDS: potassium chloride ER 20 mEq Tablet 40 MEQ PO ×2 (10:11→18:45)
--- NOTE | 2022-05-18 10:52 | PM.PN ---
Subjective Subjective: Patient is tolerating a GI soft diet and had bowel movements yesterday. He denies any abdominal pain, nausea or vomiting. He still has episodes of confusion and requires a sitter Medications: Reviewed: Yes Vitals/I&O/Wt Last Vital Signs Temp 97.9 F 05/18/22 07:59 Pulse 103 H 05/18/22 07:59 Resp 18 05/18/22 07:59 BP 132/81 05/18/22 07:59 Pulse Ox 96 05/18/22 07:59 05/17/22 05/18/22 05/18/22 22:59 06:59 14:59 Intake Total 1220 / 2175 120 / 120 Output Total 200 / 200 Balance 1219 -1974 120 / 120 Physical Exam Narrative: Abdomen: Soft, nondistended, nontender, incisions well-healed, abdominal wall ecchymosis significantly improved Urinary Catheter Management: Valdez: Cath Placed During This Visit: yes Reason for Continuing Indwelling Catheter: Acute Urinary Retention or Obstruction Urinary Catheter Date of Insertion: 05/13/22 Urinary Catheter Time of Insertion: 20:33 Data : 05/18/22 06:05 05/18/22 06:05 Micro: Microbiology 05/13/22 06:14 Blood Culture - Final Blood NO GROWTH AFTER 5 DAYS 05/13/22 06:14 Blood Culture - Final Blood NO GROWTH AFTER 5 DAYS A&P Assessment and plan (1) Partial small bowel obstruction: 77-year-old male status post sigmoidectomy for colovesical fistula who presents with partial small bowel obstruction. He also had confusion and acute kidney injury. His small bowel obstruction and MARAL is resolved and he is on a regular diet and his abdominal exam is benign but he is being evaluated for possible [facility]- psych placement near [place] due to his persistent confusion. 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
[2022-05-18 11:36] VITALS: BP 129/76; PULSE 91; RESP 16; TEMP 36.6; O2SAT 97
--- NOTE | 2022-05-18 11:42 | PC.SOCIAL ---
IMM Updated Updated pt's on IMM. No questions voiced. Provided pt a copy. Initialed, dated, & timed copy in chart.
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
[2022-05-18 13:19] LABS: Phosphorus 2.9 mg/dL (2.5-4.5)
[2022-05-18 15:42] VITALS: BP 127/84; PULSE 82; RESP 18; TEMP 36.4; O2SAT 97
[2022-05-18 20:00] VITALS: BP 135/85; PULSE 86; RESP 16; TEMP 37; O2SAT 99
[2022-05-18] MEDS: dextrose 5% 1,000 ML 75 ML IV (20:05)
[2022-05-18] MEDS: nortriptyline 10 mg Capsule 20 MG PO (20:05)
[2022-05-18] MEDS: risperiDONE 1 mg Tablet PO (20:06)
[2022-05-19] VITALS (8 sets, daily range): BP systolic 136–159; BP diastolic 81–92; PULSE 65–107; RESP 14–20; TEMP 36.1–36.7; O2SAT 96–100
[2022-05-19] MEDS: heparin 5,000 unit/mL INJ 1 mL 5000 UNIT SUBCUT ×2 (01:02→13:11)
[2022-05-19] MEDS: dextrose 5% 1,000 ML 75 ML IV ×2 (01:02→18:00)
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
[2022-05-19] MEDS: topiramate 25 mg Tablet 50 MG PO (10:17)
[2022-05-19] MEDS: metoprolol tartrate 50 mg Tablet 25 MG PO ×2 (10:19→17:59)
[2022-05-19] MEDS: tamsulosin 0.4 mg Capsule 0.8 MG PO (10:19)
[2022-05-19] MEDS: famotidine 20 mg Tablet PO ×2 (10:19→17:59)
[2022-05-19 14:39] LABS: Anion Gap 17.5 (5-19); Blood Urea Nitrogen 16 mg/dL (8-23); Calcium 8.8 mg/dL (8.5-10.5); Carbon Dioxide 20 mmol/L (22-29); Chloride 102 mmol/L (98-107); Creatine Phosphokinase 56 U/L (39-308); Glucose 113 mg/dL (65-115); Osmolality Calculated 284 mOsm/kg (285-295); Potassium 3.5 mmol/L (3.5-5.1); Sodium 136 mmol/L (136-145)
[2022-05-19] MEDS: haloperidol inj 5 mg/mL INJ 1 mL 2 MG IM (17:59)
[2022-05-19] MEDS: risperiDONE 1 mg Tablet PO (20:56)
[2022-05-20] MEDS: heparin 5,000 unit/mL INJ 1 mL 5000 UNIT SUBCUT ×2 (01:32→14:27)
[2022-05-20] MEDS: dextrose 5% 1,000 ML 75 ML IV (01:33)
[2022-05-20 03:44] VITALS: BP 125/102; PULSE 90; RESP 20; TEMP 36.4; O2SAT 99
[2022-05-20 07:37] VITALS: BP 150/83; PULSE 77; RESP 18; TEMP 36.5; O2SAT 99
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
--- NOTE | 2022-05-20 07:54 | ECG_ITS ---
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 Measurements Intervals [place] Rate: 95 P: 27 DC: 130 QRS: -33 QRSD: 89 T: 43 QT: 344 QTc: 433 Interpretive Statements SINUS RHYTHM LEFT AXIS DEVIATION [QRS AXIS < -30] POSSIBLE ANTERIOR MYOCARDIAL INFARCTION , PROBABLY OLD [30 ms Q WAVE IN V3/V4, OR R < 0.2 mV IN V4] Compared to ECG 04/29/2022 23:24:42 Sinus arrhythmia no longer present Myocardial infarct finding still present Electronically Signed On 05-20-2022 23:42:56 CDT by Francesco Chambers M.D. [email or web address]
[2022-05-20 07:59] VITALS: PULSE 80; RESP 16; O2SAT 95
[2022-05-20] MEDS: famotidine 20 mg Tablet PO ×2 (08:11→17:21)
[2022-05-20] MEDS: metoprolol tartrate 50 mg Tablet 25 MG PO ×2 (08:11→17:21)
[2022-05-20] MEDS: tamsulosin 0.4 mg Capsule 0.8 MG PO (08:11)
[2022-05-20] MEDS: topiramate 25 mg Tablet 50 MG PO (08:43)
--- NOTE | 2022-05-20 09:14 | USR_ITS ---
PROCEDURE INFORMATION: Exam: US Abdomen; Limited Exam date and time: 05/20/2022 9:59 AM Age: 77 years old Clinical indication: Other: Checking if bladder full; Patient HX: PT had a section of bladder and sigmoid colon removed very recently. Family and nurse assure me that it was not cancer; Additional info: Urinary retention TECHNIQUE: Imaging protocol: Real time ultrasound of the abdomen with image documentation. Limited exam focused on the region of clinical interest. COMPARISON: CT abdomen pelvis wo con [id number] 05/12/2022 10:19 PM FINDINGS: Urinary bladder: Empty bladder with 2 cc volume. US/ bladder [id number] IMPRESSION: Empty bladder.
[2022-05-20 09:16] LABS: Anion Gap 15.8 (5-19); Blood Urea Nitrogen 13 mg/dL (8-23); Calcium 8.5 mg/dL (8.5-10.5); Carbon Dioxide 20 mmol/L (22-29); Chloride 107 mmol/L (98-107); Glucose 103 mg/dL (65-115); Osmolality Calculated 288 mOsm/kg (285-295); Potassium 3.8 mmol/L (3.5-5.1); Sodium 139 mmol/L (136-145)
[2022-05-20 11:36] LABS: Urine Appearance Clear (CLEAR); Urine Color Yellow (Yellow); pH Urine 7 (5-7)
[2022-05-20 11:37] LABS: Add Urine Microscopic? YES; Bacteria Urine 1+ /hpf; Bilirubin Urine Neg (Negative); Blood Urine 3+ (Negative); Glucose Urine UA Norm (Normal); Ketones Urine Negative (Negative); Leukocyte Esterase Urine 2+ (Negative); Nitrate Urine Negative (Negative); Protein Urine Neg (Negative); RBC Urine 0-4 /hpf (0-2); Urobilinogen Urine Norm (Negative); WBC Urine 15-25 /hpf (0-5)
[2022-05-20 11:38] LABS: Add Urine Culture? No
[2022-05-20 12:00] VITALS: BP 165/89; PULSE 78; RESP 16; TEMP 36.7; O2SAT 95
--- NOTE | 2022-05-20 13:14 | PC.SOCIAL ---
IMM Update pg 2 of IMM updated and reviewed w/ patient. Copy provided and copy in chart updated.
[2022-05-20] MEDS: cefdinir 300 MG CAPSULE PO ×2 (13:51→17:21)
[2022-05-20 16:00] VITALS: BP 149/88; PULSE 72; RESP 16; TEMP 36.6; O2SAT 95
[2022-05-20 19:41] VITALS: BP 127/88; PULSE 111; RESP 18; TEMP 37; O2SAT 99
[2022-05-20] MEDS: risperiDONE 1 mg Tablet PO (20:11)
[2022-05-21] VITALS: BP 124/87; PULSE 95; RESP 18; TEMP 36.8; O2SAT 96
[2022-05-21] MEDS: heparin 5,000 unit/mL INJ 1 mL 5000 UNIT SUBCUT ×2 (03:03→15:09)
[2022-05-21 04:00] VITALS: BP 131/69; PULSE 74; RESP 17; TEMP 36.4; O2SAT 97
[2022-05-21 07:53] VITALS: BP 132/85; PULSE 60; RESP 18; TEMP 36.9; O2SAT 97
[2022-05-21 07:59] VITALS: PULSE 77; RESP 17; O2SAT 95
[2022-05-21] MEDS: topiramate 25 mg Tablet 50 MG PO (09:06)
[2022-05-21] MEDS: cefdinir 300 MG CAPSULE PO (09:07)
[2022-05-21] MEDS: famotidine 20 mg Tablet PO (09:07)
[2022-05-21] MEDS: metoprolol tartrate 50 mg Tablet 25 MG PO (09:08)
[2022-05-21] MEDS: tamsulosin 0.4 mg Capsule 0.8 MG PO (09:08)
[2022-05-21 11:59] VITALS: BP 164/77; PULSE 70; RESP 18; TEMP 36.7; O2SAT 95
--- NOTE | 2022-05-21 15:11 | P.DS_ITS ---
Discharge Providers Date of Admission: 05/13/22 00:47 Date of Discharge: May 21, 2022 Attending Provider at Admission: Daja Javier MD Attending Provider at Discharge: Jesusita Saab MD Diagnoses at Discharge Discharge Diagnosis (1) Dementia: Status: Acute (2) Partial small bowel obstruction: Status: Resolved (3) Sepsis: Status: Resolved (4) MARAL (acute kidney injury): Status: Resolved (5) Dehydration: Status: Resolved (6) Small bowel obstruction: Status: Resolved Reason for Visit Reason for Visit: Vomiting, SOB, Weak Brief History: As per HPI Eder Murphy is a 77 year old male with h/o colovesical fistula 2/ diverticulitis s/p laparoscopic sigmoid colectomy, partial cystectomy and colonoscopy 04/20, recently admitted 04/29-05/04 for ileus, MARAL, hospital acquired pneumonia. Ileus treated with conservative management, HAP with broad spectrum abx. He returns today with increasing weakness, excessive vomiting, multiple episodes of diarrhea and poor po intake. No fever. Hospital Course Hospital Course He was recently discharged from hospital after laparoscopic sigmoid colectomy, partial cystectomy colonoscopy 04/20 he was discharged after 2 units of packed RBC who presented to the hospital recurrent bloody vomiting.? This is a second admission.? He was discharged on 05/04 after conservative management of small bowel obstruction/ileus.? Antibiotics were given initially and then discontinued.? Now patient is having daily bowel movements and doing well from GI aspect.? He is tolerating GI soft diet.? General surgery is following the patient.? At this admission NG tube was discontinued 05/14.? He was managed conservatively for his partial SBO/ileus. Doing well from SBO standpoint. Surgery has signed off. Valdez catheter was discontinued eventually. Nortriptyline was stopped. Tamsulosin was increased to 2.8 daily. Bladder scan negative thereafter. During hospital stay patient acquired delirium on top of his underlying dementia. He was seen by psychiatrist as well. His medications were adjusted. Risperdal was started. He is stable on risperidone 1 mg at bedtime. QTC was checked which was normal. Urinalysis positive for UTI. Urine culture pending. He was discharged on cefdinir 300 mg daily for 7 days total. Culture came back later for Pseudomonas sensitive to all medications. Prescription called in for levofloxacin 500 daily for 7 days. Family notified over the phone by nursing staff. Initially patient's wanted to take him to a nursing facility versus [facility] but he was declined by those facilities due to them being at capacity. was able to acquire a hospital bed and took him home with home health. On day of discharge patient was walking around with his walker and using 1 knee and gliding on it all the way to the end of the [place]ne[place]. He was active doing really well back to his baseline mental status laughing. He was tolerating diet and having regular bowel movements and no urinary complaints at this time. Throughout hospital stay I discussed with the daily for 10 to 15 minutes at bedside regarding his condition. Physical Exam Narrative: Awake, alert and oriented x1 Neuro exam nonfocal able to move all 4 extremities Appears euvolemic Saturating well on room air Abdomen soft nontender, no guarding or rigidity Surgical scar, no active sign of cellulitis Abdominal sounds are present No signs of edema Urinary Catheter Management: Valdez: Cath Placed During This Visit: yes Reason for Continuing Indwelling Catheter: Acute Urinary Retention or Obstruction Urinary Catheter Date of Insertion: 05/13/22 Urinary Catheter Time of Insertion: 20:33 Discharge Data Studies Completed and Pending Completed Studies During Hospitalization Category Date Time Status CT abdomen pelvis wo con [id number] Urgent Cat Scan 05/12/22 21:[address] head wo con* [id number] Urgent Cat Scan 05/16/22 11:04 Completed CXRP [XR chest 1V portable [id number]] Routine Exams 05/13/22 05:14 Completed XR KUB portable [id number] Routine Exams 05/13/22 01:35 Completed XR KUB portable [id number] Routine Exams 05/13/22 12:12 Completed XR KUB portable [id number] Routine Exams 05/14/22 04:00 Completed XR KUB portable [id number] Routine Exams 05/16/22 04:00 Completed US bladder [id number] Stat Ultrasound 05/20/22 09:14 Completed Pending at discharge Category Date Time Status Urine Culture Stat Lab 05/20/22 10:54 Results Radiology Impressions Abdomen/Pelvis CT 05/12/22 21:57 IMPRESSION: 1. Moderate diffuse small bowel distension with probable gradual transition in the anterior upper abdomen. Findings suggest small bowel obstruction, possibly due to adhesion, and appears similar to prior exam. No free air, pneumatosis or suspicious bowel wall thickening however assessment is limited due to lack of contrast. Evidence of rectal anastomosis however no obvious obstruction is present at this level. Surgical consultation should be considered. 2. Other nonacute findings as described. ADDENDUM: 05/12/[address] Zuniga was notified by phone at 12:19 a.m. Eastern time. Chest X-Ray 05/13/22 05:14 IMPRESSION: 1. Negative for acute abnormality. 2. NG tube is in the mid esophagus requires repositioning 3. Electronic stimulator wire mid dorsal spine KUB X-Ray 05/16/22 04:00 IMPRESSION: Bowel gas pattern is nonspecific. Head CT 05/16/22 11:04 IMPRESSION: 1. No evidence of intracranial hemorrhage or mass effect. 2. Moderate small vessel changes with mild parenchymal volume loss. 3. Chronic lacunar infarcts in the bilateral basal ganglia. 4. No acute intracranial findings. Bladder Ultrasound 05/20/22 09:14 IMPRESSION: Empty bladder. Laboratory Results WBC 7.4 10^3/uL (4.0-10.0) 05/18/22 06:05 RBC 3.61 10^6/uL (4.1-5.3) L 05/18/22 06:05 Hgb 9.7 g/dL (11.7-16.6) L 05/18/22 06:05 Hct 32.3 % (42.0-52.0) L 05/18/22 06:05 MCV 89.5 fl (80-94) 05/18/22 06:05 MCH 26.9 pg (28.0-34.0) L 05/18/22 06:05 MCHC 30.0 g/dL (30.0-36.0) 05/18/22 06:05 RDW 14.6 % (12.1-15.1) 05/18/22 06:05 Plt Count 379 10^3/cmm (130-400) 05/18/22 06:05 MPV 9.3 fL (7.4-10.4) 05/18/22 06:05 Neut % (Auto) 67.7 % 05/18/22 06:05 Lymph % (Auto) 23.8 % 05/18/22 06:05 Emanuel % (Auto) 6.1 % 05/18/22 06:05 Eos % (Auto) 0.8 % 05/18/22 06:05 Baso % (Auto) 0.4 % 05/18/22 06:05 Neut # (Auto) 5.03 10^3/uL (1.8-7.7) 05/18/22 06:05 Lymph # (Auto) 1.8 10^3/uL (0.8-4.8) 05/18/22 06:05 Emanuel # (Auto) 0.5 10^3/uL (0.2-0.9) 05/18/22 06:05 Eos # (Auto) 0.1 10^3/uL (0.0-0.8) 05/18/22 06:05 Baso # (Auto) 0.0 10^3/uL (0.0-0.1) 05/18/22 06:05 Nucleated RBC % (auto) 0 % 05/18/22 06:05 Nucleated RBCs # 0.0 /100WBC 05/18/22 06:05 Sodium 139 mmol/L (136-145) 05/20/22 08:15 Potassium 3.8 mmol/L (3.5-5.1) 05/20/22 08:15 Chloride 107 mmol/L (98-107) 05/20/22 08:15 Carbon Dioxide 20 mmol/L (22-29) L 05/20/22 08:15 Anion Gap 15.8 (5-19) 05/20/22 08:15 BUN 13 mg/dL (8-23) 05/20/22 08:15 Creatinine 1.4 mg/dL (0.7-1.2) H 05/20/22 08:15 GFR Calculation Not Reportable 05/20/22 08:15 Glucose 103 mg/dL (65-115) 05/20/22 08:15 Calculated Osmolality 288 mOsm/kg (285-295) 05/20/22 08:15 Lactic Acid 1.3 mmol/L (0.5-2.2) 05/14/22 04:16 Lactate 2.8 mmol/L (0.5-2.2) H 05/12/22 21:25 Calcium 8.5 mg/dL (8.5-10.5) 05/20/22 08:15 Phosphorus 2.9 mg/dL (2.5-4.5) 05/18/22 06:05 Magnesium 1.5 mg/dL (1.7-2.3) L 05/18/22 06:05 Total Bilirubin 0.5 mg/dL (0.15-1.2) 05/14/22 04:16 AST 14 U/L (0-40) 05/14/22 04:16 ALT 13 U/L (0-41) 05/14/22 04:16 Alkaline Phosphatase 158 IU/L (40-130) H 05/14/22 04:16 Creatine Kinase 56 U/L (39-308) 05/19/22 14:05 C-Reactive Protein 140.9 mg/L (0.0-4.9) H 05/12/22 21:25 Total Protein 6.0 g/dL (6.6-8.7) L 05/14/22 04:16 Albumin 3.3 g/dL (3.5-5.2) L 05/14/22 04:16 Globulin 2.7 g/dL (1.3-4.6) 05/14/22 04:16 Lipase 12 U/L (13-60) L 05/12/22 21:25 Procalcitonin 0.44 ng/mL (0-0.5) 05/14/22 04:16 Urine Color Yellow (Yellow) 05/20/22 10:54 Urine Appearance Clear (CLEAR) 05/20/22 10:54 Urine pH 7 (5-7) 05/20/22 10:54 Ur Specific [place] 1.010 (1.005-1.030) 05/20/22 10:54 Urine Protein Neg (Negative) 05/20/22 10:54 Urine Glucose (UA) Norm (Normal) 05/20/22 10:54 Urine Ketones Negative (Negative) 05/20/22 10:54 Urine Blood 3+ (Negative) H 05/20/22 10:54 Urine Nitrate Negative (Negative) 05/20/22 10:54 Urine Bilirubin Neg (Negative) 05/20/22 10:54 Urine Urobilinogen Norm mg/dL (Negative) 05/20/22 10:54 Ur Leukocyte Esterase 2+ (Negative) H 05/20/22 10:54 Urine RBC 0-4 /hpf (0-2) H 05/20/22 10:54 Urine WBC 15-25 /hpf (0-5) H 05/20/22 10:54 Ur Squamous Epith Cells 5-10 /hpf (0-5) H 05/20/22 10:54 Amorphous Sediment Not Reportable 05/20/22 10:54 Urine Bacteria 1+ /hpf (NONE) H 05/20/22 10:54 Urine Mucus Trace /hpf 05/13/22 21:40 Vitals Last Vital Signs Temp 98.0 F 05/21/22 11:59 Pulse 70 05/21/22 11:59 Resp 18 05/21/22 11:59 BP 164/77 05/21/22 11:59 Pulse Ox 95 05/21/22 11:59 Discharge Plan Discharge Patient Disposition: Home Health Service Condition: Stable Prescriptions: New risperidone 1 mg Tablet 1 mg PO BEDTIME 30 Days Qty: 30 0RF famotidine 20 mg Tablet 20 mg PO BID 30 Days Qty: 60 0RF tamsulosin 0.4 mg Capsule 0.8 mg PO DAILY 30 Days Qty: 30 0RF metoprolol tartrate 50 mg Tablet 25 mg PO BID 30 Days Qty: 15 0RF cefdinir 300 mg Capsule 300 mg PO BID 7 Days Qty: 14 0RF lisinopril 5 mg tablet 5 mg PO DAILY 30 Days Qty: 30 0RF levofloxacin 500 mg tablet 500 mg PO DAILY 7 Days Qty: 7 0RF Continued ferrous sulfate [FeroSul] 325 mg (65 mg iron) tablet 325 mg PO DAILY 0RF aspirin 81 mg tablet,delayed release (DR/EC) 81 mg PO DAILY 0RF lamotrigine [Lamictal ODT] 100 mg tablet,disintegrating 100 mg PO BEDTIME 0RF topiramate 50 mg tablet 50 mg PO BEDTIME 0RF clopidogrel 75 mg tablet 75 mg PO DAILY 0RF Hold Instructions: Resume on 04/28/22. cetirizine [All Day Allergy (cetirizine)] 10 mg tablet 10 mg PO DAILY PRN (Reason: Allergy Symptoms) 0RF ICaps AREDS [phone] [id number] capsule 1 cap PO BID 0RF cyanocobalamin (vitamin B-12) 1,000 mcg capsule 1,000 mcg PO DAILY 0RF acetaminophen 500 mg tablet 500 mg PO Q6H PRN (Reason: pain) Qty: 24 0RF lidocaine 5 % adhesive patch,medicated 1 patch topical DAILY PRN (Reason: Pain, Mild) Qty: 20 0RF Rx Instructions: leave on most painful area for up to 12 hrs hydrocodone-acetaminophen 5-325 mg tablet 1 tab PO Q6H PRN (Reason: pain) Qty: 14 0RF Senna-S 8.6-50 mg Tablet 2 tab-cap PO BEDTIME 0RF albuterol sulfate 90 mcg/actuation Hfa Aerosol Inhaler 2 inh INHALATION QID PRN (Reason: Shortness Of Breath) 0RF Held alendronate 70 mg tablet 70 mg PO Q7D 0RF Hold Instructions: see primary care doctor before resuming Rx Instructions: On Wednesdays Discontinued metoprolol tartrate 100 mg tablet 100 mg PO BID 0RF nortriptyline 10 mg capsule 20 mg PO BEDTIME 0RF hydrochlorothiazide 12.5 mg tablet 12.5 mg PO DAILY 0RF Hold Instructions: Resume on 05/11/22. sucralfate 1 gram tablet 1 g PO QID 0RF tamsulosin 0.4 mg capsule 0.4 mg PO DAILY 0RF amlodipine 10 mg Tablet 10 mg PO DAILY Qty: 60 3RF hydralazine 10 mg tablet 10 mg PO BID Qty: 60 0RF lisinopril 10 mg Tablet 10 mg PO DAILY 0RF Discharge Orders: Discharge Order (Routine); Ordered 05/21/22 Ordered By: Jesusita Saab Other Ambulatory Orders: Basic Metabolic Panel (Routine) Timeframe: 1 Week Facility: [facility] [place] - Location: Lab - Main Lab Ordered By: Jesusita Saab Referrals: [facility] [Outside] Braulio Redd MD [Physician] - 2 weeks (Dr. Rodriguez office will be contacting you to set up an appointment.) Jose Ness MD [Physician] - 2 weeks (Your appointment with Dr. Ness will be on June 05, 2022 at 8:40 AM. If you have any questions or concerns please call. ) Discharge Diet: GI Soft Discharge Activity: Resume usual activity and Use walker/crutches as instructed Patient Instructions: Bowel Obstruction, Metoprolol (By mouth), Lisinopril (By mouth), Famotidine (By mouth), Risperidone (By mouth), Tamsulosin (By mouth), Cefdinir (By mouth), Opioid Safety Activity Restrictions/Additional Instructions: Patient will need 24/7 supervision at home secondary to severe dementia Home health has been setup as well. Please continue medications as prescribed. Please check blood pressure daily and call primary if running lower than 100/60 or higher than 150/90 for adjustment of medications. Please follow up with your primary care doctor within 4-7 days of discharge. Have your primary care refer you to [facility], to help assist with meds. PCP: Rashmi De La Rosa [phone] Discharge Attestations Time Spent in Discharge Care*: greater than 30 min Quality Metrics Clinical Quality Measures [ No reported AMI, CVA or VTE this stay] Coding Level of Care Code Acute g FW DC note Diagnoses Dementia F03.90 Partial small bowel obstruction K56.600 Sepsis A41.9 MARAL (acute kidney injury) N17.9 Dehydration E86.0 Small bowel obstruction K56.609
--- NOTE | 2022-05-22 16:23 | PC.NURSE ---
Addendum entered by Eugenie Stevens RN 05/22/22 16:57: Patient's , Sandra, called back and this nurse spoke with her to let her know about the medication being sent over to [facility]. Questions were answered, verbalized understanding. Original Note: Attempted to call pt to let him know that the culture results came back from urine sample and a new antibiotic(levofloxacin) was sent to [facility]. Left message at the number [phone] to let patient/patient's know about the change. Will attempt to call again.
== END 2022-05-21 17:55 | disposition home health service (06) | DRG 389 ==
LOC: ER 05-13 00:56 → MEDSURG 05-13 01:10
PROVIDERS: Internal Medicine; Admitting Provider Student in an Organized Health Care Education/Training Program; Emergency Provider Emergency Medicine; Visit Provider Internal Medicine
DX: K56.600 Partial intestinal obstruction, unspecified as to cause (principal); E87.0 Hyperosmolality and hypernatremia; N17.9 Acute kidney failure, unspecified; F05 Delirium due to known physiological condition; N39.0 Urinary tract infection, site not specified; K56.7 Ileus, unspecified; Z87.820 Personal history of traumatic brain injury; Z87.440 Personal history of urinary (tract) infections; Z87.01 Personal history of pneumonia (recurrent); Z87.891 Personal history of nicotine dependence; E86.0 Dehydration; R97.20 Elevated prostate specific antigen [PSA]; Z90.49 Acquired absence of other specified parts of digestive tract; Z90.6 Acquired absence of other parts of urinary tract; R33.9 Retention of urine, unspecified; F03.90 Unspecified dementia, unspecified severity, without behavioral disturbance, psychotic disturbance, mood disturbance, and anxiety; Z79.891 Long term (current) use of opiate analgesic; Z79.02 Long term (current) use of antithrombotics/antiplatelets; Z79.82 Long term (current) use of aspirin; B96.5 Pseudomonas (aeruginosa) (mallei) (pseudomallei) as the cause of diseases classified elsewhere
CPT/HCPCS: 36415; 51702; 70450; 71045; 74018; 74176; 76857; 80048; 80053; 81001; 82550; 83605; 83630; 83690; 83735; 84100; 84145; 85025; 86140; 87040; 87077; 87086; 87186; 87493; 87506; 93005; 96361; 96372; 96374; 97116; 97162; 99285; A4570; J1630; J1644; J2060; J2270; J2405; J2543; J3475; J3480; J3486; J3490; J7030

== ENCOUNTER → 2022-08-20 14:37 | Outpatient (BNVA) | payer OTHER, MEDICARE, SELFPAY | PROVIDERS: Visit Provider Urology | DX: N40.1 Benign prostatic hyperplasia with lower urinary tract symptoms (principal); N32.1 Vesicointestinal fistula; R97.20 Elevated prostate specific antigen [PSA]; F03.90 Unspecified dementia, unspecified severity, without behavioral disturbance, psychotic disturbance, mood disturbance, and anxiety | CPT/HCPCS: 51798; 99213 ==

== ENCOUNTER → 2022-10-24 08:33 | Outpatient (BNVA) | payer OTHER, SELFPAY | PROVIDERS: Visit Provider Specialist | DX: F03.90 Unspecified dementia, unspecified severity, without behavioral disturbance, psychotic disturbance, mood disturbance, and anxiety (principal); I73.9 Peripheral vascular disease, unspecified; R56.9 Unspecified convulsions; Z87.820 Personal history of traumatic brain injury; Z90.49 Acquired absence of other specified parts of digestive tract | CPT/HCPCS: 96116; 99205 ==

== ENCOUNTER → 2023-01-23 09:21 | Outpatient (BNVA) | payer OTHER, SELFPAY | PROVIDERS: Visit Provider Specialist | DX: G30.9 Alzheimer's disease, unspecified (principal); F02.80 Dementia in other diseases classified elsewhere, unspecified severity, without behavioral disturbance, psychotic disturbance, mood disturbance, and anxiety; I73.9 Peripheral vascular disease, unspecified | CPT/HCPCS: 96116; 99214 ==

== ENCOUNTER → 2023-05-01 14:44 | Outpatient (BNVA) | payer OTHER, SELFPAY | PROVIDERS: Visit Provider Specialist | DX: G30.9 Alzheimer's disease, unspecified (principal); F02.80 Dementia in other diseases classified elsewhere, unspecified severity, without behavioral disturbance, psychotic disturbance, mood disturbance, and anxiety; I73.9 Peripheral vascular disease, unspecified; Z98.890 Other specified postprocedural states | CPT/HCPCS: 96116; 99213 ==